=== PATIENT | female | born 1935 | race Caucasian/White ===

== ENCOUNTER 2020-09-24 10:37 | Observation (INO) ==
--- NOTE | 2020-09-24 11:24 | Emergency Department Note ---
History of Present Illness General Chief complaint: Syncope (Near Syncope) Stated complaint: DIZZY, LIGHTHEADED Time Seen by Provider: 09/24/20 11:04 Source: patient Mode of arrival: ambulatory Limitations: no limitations History of Present Illness This patient is an 85-year-old female comes in after a near syncopal episodes in her doctor's office. She says since she has been lightheaded and dizzy and passed out several times no injury. Today was the first time she has been checked out. At her doctor's office she says she felt faint and dizzy like she was in a pass out when he had a walking down a long haul. Apparently they measured her oxygen at the time it was low on pulse ox however that is improved. She denies any chest pain during these episodes but has had some shortness of breath. She did have diarrhea over but none recently. Her symptoms are exacerbated when she walks too far she says. No fever. No focal numbness or weakness. She does have a pacemaker in. Her regular doctor is in [facility] and she also sees a gas meter reader in [place] and we have very little records here on her. Home Medications Medication Instructions Recorded Confirmed Type amlodipine 10 mg PO QAM 02/12/20 09/24/20 History atorvastatin 10 mg PO QAM 02/12/20 09/24/20 History carbidopa-levodopa [Sinemet] 1 tab PO TID 02/12/20 09/24/20 History gabapentin 100 mg PO TID 02/12/20 09/24/20 History pantoprazole [Protonix] 20 mg PO QAM 02/12/20 09/24/20 History potassium chloride [Klor-Con 8] 8 meq PO QAM 02/12/20 09/24/20 History aspirin [Aspir-81] 81 mg PO QAM 09/24/20 09/24/20 History Allergies Allergy/AdvReac Type Severity Reaction Status Date / Time adhesive tape Allergy Rash Unverified 09/24/20 11:13 morphine Allergy Hives Unverified 09/24/20 11:13 Sulfa (Sulfonamide Allergy Unknown Unverified 09/24/20 11:13 Antibiotics) Past Med/Surg History Medical History (Updated 09/24/20 @ 15:22 by Dimas Enciso MD) History of CVA (cerebrovascular accident) History of diverticulitis Hypertension Parkinson disease Presence of cardiac pacemaker 09/27/2015 Presence of Watchman left atrial appendage closure device 04/04/2019 Social History Smoking Status: Never smoker Preferred Language: Congolese Feels Safe at Home: Yes Immunizations: Medical historypacemaker. Parkinson's. Hypertension. She also had a atrial closure device 4 years ago in [place] Social historyshe lives in the [place] area Review of Systems A total of 10 systems reviewed and were otherwise negative Physical Exam Vital Signs Vital Signs - 24 hr 09/24/20 10:44 09/24/20 10:45 09/24/20 10:57 Temperature 36.6 C Temperature Source Oral Pulse Rate 62 71 66 Pulse Rate [Left Finger] Pulse Rate from SpO2 Sensor 62 67 Pulse Rhythm Regular Pulse Rhythm [Left Finger] Pulse Strength Normal Pulse Strength [Left Finger] Respiratory Rate 20 18 18 Respiratory Effort / Characteristics Non-Labored Spontaneous Respiratory Depth Normal Respiratory Pattern Regular Blood Pressure 193/88 H 193/88 H Blood Pressure [Right Arm] Blood Pressure Mean 123 123 Blood Pressure Mean [Right Arm] Blood Pressure Position Sitting Blood Pressure Position [Right Arm] Pulse Oximetry 98 98 98 Oxygen Delivery Method Room Air Room Air Room Air Sepsis Recent Fever Within 48 Hours No Sepsis New/Unexplained Change in Mental Status N/A Sepsis Action Taken by Nursing No Action Required 09/24/20 11:00 09/24/20 11:01 09/24/20 11:10 Temperature Temperature Source Pulse Rate 61 61 63 Pulse Rate [Left Finger] Pulse Rate from SpO2 Sensor 61 61 Pulse Rhythm Regular Pulse Rhythm [Left Finger] Regular Pulse Strength Pulse Strength [Left Finger] Normal Respiratory Rate 20 16 16 Respiratory Effort / Characteristics Non-Labored Respiratory Depth Normal Respiratory Pattern Regular Blood Pressure 186/84 H Blood Pressure [Right Arm] 187/72 H Blood Pressure Mean 129 Blood Pressure Mean [Right Arm] 110 Blood Pressure Position Blood Pressure Position [Right Arm] Sitting Pulse Oximetry 97 96 98 Oxygen Delivery Method Room Air Room Air Room Air Sepsis Recent Fever Within 48 Hours Sepsis New/Unexplained Change in Mental Status Sepsis Action Taken by Nursing 09/24/20 11:15 09/24/20 11:31 09/24/20 11:49 Temperature Temperature Source Pulse Rate 63 67 Pulse Rate [Left Finger] Pulse Rate from SpO2 Sensor 72 62 Pulse Rhythm Regular Pulse Rhythm [Left Finger] Pulse Strength Pulse Strength [Left Finger] Respiratory Rate 16 21 Respiratory Effort / Characteristics Non-Labored Spontaneous Respiratory Depth Respiratory Pattern Blood Pressure 187/82 H Blood Pressure [Right Arm] Blood Pressure Mean 85 Blood Pressure Mean [Right Arm] Blood Pressure Position Blood Pressure Position [Right Arm] Pulse Oximetry 98 99 97 Oxygen Delivery Method Room Air Room Air Sepsis Recent Fever Within 48 Hours Sepsis New/Unexplained Change in Mental Status Sepsis Action Taken by Nursing 09/24/20 12:00 09/24/20 12:01 09/24/20 12:30 Temperature Temperature Source Pulse Rate 60 62 60 Pulse Rate [Left Finger] Pulse Rate from SpO2 Sensor 63 62 60 Pulse Rhythm Pulse Rhythm [Left Finger] Pulse Strength Pulse Strength [Left Finger] Respiratory Rate 21 20 19 Respiratory Effort / Characteristics Respiratory Depth Respiratory Pattern Blood Pressure 178/89 H 175/84 H Blood Pressure [Right Arm] Blood Pressure Mean 114 105 Blood Pressure Mean [Right Arm] Blood Pressure Position Blood Pressure Position [Right Arm] Pulse Oximetry 98 97 96 Oxygen Delivery Method Sepsis Recent Fever Within 48 Hours Sepsis New/Unexplained Change in Mental Status Sepsis Action Taken by Nursing 09/24/20 12:31 09/24/20 13:00 09/24/20 13:01 Temperature Temperature Source Pulse Rate 60 62 64 Pulse Rate [Left Finger] Pulse Rate from SpO2 Sensor 60 61 62 Pulse Rhythm Pulse Rhythm [Left Finger] Pulse Strength Pulse Strength [Left Finger] Respiratory Rate 23 20 25 H Respiratory Effort / Characteristics Respiratory Depth Respiratory Pattern Blood Pressure 186/165 H Blood Pressure [Right Arm] Blood Pressure Mean 171 Blood Pressure Mean [Right Arm] Blood Pressure Position Blood Pressure Position [Right Arm] Pulse Oximetry 98 97 97 Oxygen Delivery Method Sepsis Recent Fever Within 48 Hours Sepsis New/Unexplained Change in Mental Status Sepsis Action Taken by Nursing 09/24/20 13:30 09/24/20 14:01 09/24/20 14:30 Temperature Temperature Source Pulse Rate 60 65 61 Pulse Rate [Left Finger] 61 Pulse Rate from SpO2 Sensor 66 Pulse Rhythm Pulse Rhythm [Left Finger] Regular Pulse Strength Pulse Strength [Left Finger] Normal Respiratory Rate 15 18 15 Respiratory Effort / Characteristics Non-Labored Spontaneous Respiratory Depth Normal Respiratory Pattern Regular Blood Pressure 197/88 H 156/101 H Blood Pressure [Right Arm] 158/106 H Blood Pressure Mean 124 120 Blood Pressure Mean [Right Arm] 123 Blood Pressure Position Blood Pressure Position [Right Arm] Lying Pulse Oximetry 98 98 98 Oxygen Delivery Method Room Air Room Air Room Air Sepsis Recent Fever Within 48 Hours Sepsis New/Unexplained Change in Mental Status Sepsis Action Taken by Nursing General: Well developed well nourished older female who appears in no acute distress, breathing comfortably on room air. Normal speech HEENT: Normal cephalic atraumatic. Pupils are equal round and reactive to light. Extraocular movements are intact. Oropharynx is pink with moist mucous membranes. No swelling of the mouth lips or tongue. Neck: Supple with a midline trachea. No meningeal signs or stiffness, no JVD or bruits. No Stridor. Chest: Clear to auscultation bilaterally. No wheezes or rhonchi. No increased work of breathing. Heart: Regular rate and rhythm without murmurs or gallops. Abdomen: Soft nontender, nondistended without rebound guarding or rigidity. Extremities: No cyanosis clubbing or edema. No calf tenderness or assymetry Spine/Back. Non tender to palpation. No CVA tenderness Skin: Good turgor without rashes. Neurologic exam: Cranial nerves two through 12 are intact. Motor and sensation are intact and symmetrical throughout. No tremor Course Administered Medications Discontinued Medications Carbidopa/Levodopa (Carbidopa/Levodopa 25/100mg Tab) 1 tab PO ONE STA Stop: 09/24/20 14:16 Last Admin: 09/24/20 15:06 Dose: 1 tab Documented by: [id number] Gabapentin (Gabapentin 100 Mg Cap) 100 mg PO ONE STA Stop: 09/24/20 14:16 Last Admin: 09/24/20 15:06 Dose: 100 mg Documented by: [id number] Medical Decision Making Differential Diagnosis Syncope, near syncope, pacemaker malfunction, acute coronary syndrome, Covid, valvular heart disease, dehydration, anemia, sepsis, electrolyte or metabolic abnormality Medical Records Attestation: I reviewed the patient's medical records. Home Medications Current Medication List: was personally reviewed by me Laboratory Data Attestation: I reviewed the patient's lab results. Result diagrams: 09/24/20 11:46 09/24/20 11:46 Lab Results 09/24/20 09/24/20 09/24/20 Range/Units 11:46 11:46 11:46 WBC 6.82 (4.8-10.8) K/uL RBC 5.16 (4.2-5.4) M/uL Hgb 15.2 (12.0-16.0) g/dL Hct 45.1 (37-47) % MCV 87.4 (80-100) fL MCH 29.5 (25-34) pg MCHC 33.7 (32-36) g/dL RDW Std Deviation 47.4 H (36.4-46.3) fL RDW Coeff of Dontae 14.8 H (11.5-14.5) % Plt Count 183 (130-400) K/uL MPV 11.7 H (7.4-10.4) fL Immature Gran % (Auto) 0.1 % Neut % (Auto) 49.7 % Lymph % (Auto) 39.6 % Tripp % (Auto) 8.5 % Eos % (Auto) 1.5 % Baso % (Auto) 0.6 % Neut # (Auto) 3.39 (1.4-6.5) K/uL Lymph # (Auto) 2.70 (1.2-3.4) K/uL Tripp # (Auto) 0.58 (0.11-0.59) K/uL Eos # (Auto) 0.10 (0-0.5) K/uL Baso # (Auto) 0.04 (0-0.2) K/uL Immature Gran # (Auto) 0.01 (0.00-0.02) K/uL PT 11.8 (9.0-12.0) Seconds INR 1.1 (0.9-1.1) APTT 29.1 (21.0-31.0) Seconds PTT Ratio 1.0 Sodium 143 (136-145) mmol/L Potassium 3.6 (3.5-5.1) mmol/L Chloride 107 (98-107) mmol/L Carbon Dioxide 30 (21-32) mmol/L Anion Gap 6.0 (3-11) BUN 10 (7-18) mg/dl Creatinine 0.77 (0.6-1.2) mg/dl Est Cr Clr Drug Dosing 37.0 ml/min Est GFR ( Amer) 80.5 Est GFR (Non-Af Amer) 69.4 BUN/Creatinine Ratio 12.9 (10-20) Glucose 92 (70-99) mg/dl Calcium 8.8 (8.5-10.1) mg/dl Magnesium 1.9 (1.8-2.4) mg/dl Total Bilirubin 1.0 (0.2-1) mg/dl AST 20 (15-37) U/L ALT 13 (12-78) U/L Alkaline Phosphatase 142 H (45-117) U/L Troponin I < 0.015 (0-0.045) ng/ml NT-Pro-B Natriuret Pep 3962 H (0-1800) pg/ml Total Protein 6.9 (6.4-8.2) gm/dl Albumin 3.3 L (3.4-5.0) gm/dl Globulin 3.6 (2.5-4.0) gm/dl Albumin/Globulin Ratio 0.9 (0.9-2) TSH 1.360 (0.300-4.500) uIu/ml Urine Color Urine Appearance (Clear) Urine pH (4.5-7.5) Ur Specific [place] (1.000-1.030) Urine Protein (Negative) Urine Glucose (UA) (Negative) Urine Ketones (Negative) Urine Blood (Negative) Urine Nitrite (Negative) Urine Bilirubin (Negative) Urine Urobilinogen (Negative) Ur Leukocyte Esterase (Negative) COVID-19 Eval Order SARS-CoV-2, RNA, NAAT (NEGATIVE) 09/24/20 09/24/20 09/24/20 Range/Units 11:46 11:50 11:50 WBC (4.8-10.8) K/uL RBC (4.2-5.4) M/uL Hgb (12.0-16.0) g/dL Hct (37-47) % MCV (80-100) fL MCH (25-34) pg MCHC (32-36) g/dL RDW Std Deviation (36.4-46.3) fL RDW Coeff of Dontae (11.5-14.5) % Plt Count (130-400) K/uL MPV (7.4-10.4) fL Immature Gran % (Auto) % Neut % (Auto) % Lymph % (Auto) % Tripp % (Auto) % Eos % (Auto) % Baso % (Auto) % Neut # (Auto) (1.4-6.5) K/uL Lymph # (Auto) (1.2-3.4) K/uL Tripp # (Auto) (0.11-0.59) K/uL Eos # (Auto) (0-0.5) K/uL Baso # (Auto) (0-0.2) K/uL Immature Gran # (Auto) (0.00-0.02) K/uL PT (9.0-12.0) Seconds INR (0.9-1.1) APTT (21.0-31.0) Seconds PTT Ratio Sodium (136-145) mmol/L Potassium (3.5-5.1) mmol/L Chloride (98-107) mmol/L Carbon Dioxide (21-32) mmol/L Anion Gap (3-11) BUN (7-18) mg/dl Creatinine (0.6-1.2) mg/dl Est Cr Clr Drug Dosing ml/min Est GFR ( Amer) Est GFR (Non-Af Amer) BUN/Creatinine Ratio (10-20) Glucose (70-99) mg/dl Calcium (8.5-10.1) mg/dl Magnesium (1.8-2.4) mg/dl Total Bilirubin (0.2-1) mg/dl AST (15-37) U/L ALT (12-78) U/L Alkaline Phosphatase (45-117) U/L Troponin I (0-0.045) ng/ml NT-Pro-B Natriuret Pep (0-1800) pg/ml Total Protein (6.4-8.2) gm/dl Albumin (3.4-5.0) gm/dl Globulin (2.5-4.0) gm/dl Albumin/Globulin Ratio (0.9-2) TSH (0.300-4.500) uIu/ml Urine Color Yellow Urine Appearance Clear (Clear) Urine pH 5.5 (4.5-7.5) Ur Specific [place] 1.013 (1.000-1.030) Urine Protein Negative (Negative) Urine Glucose (UA) Negative (Negative) Urine Ketones Negative (Negative) Urine Blood Negative (Negative) Urine Nitrite Negative (Negative) Urine Bilirubin Negative (Negative) Urine Urobilinogen Negative (Negative) Ur Leukocyte Esterase Negative (Negative) COVID-19 Eval Order Covid19 IDNow [facility] SARS-CoV-2, RNA, NAAT NEGATIVE (NEGATIVE) Imaging Data Attestation: I personally reviewed and interpreted this imaging study as follows: My Impression: Chest x-ray, cardiomegaly but no acute infiltrate, failure treatment pneumothorax seen. Radiologist's Impression: XR chest 1V portable HISTORY: 85 years-old Female syncope acute syncope COMPARISON: Chest radiograph 02/12/2020 TECHNIQUE: Portable AP view of the chest FINDINGS: Cardiomegaly. Left subclavian pacer. Calcified plaque of the thoracic aorta. Surgical device overlies the left heart border. No pneumothorax, pleural effusion, airspace consolidation or overt pulmonary edema. Degenerative changes of the shoulders and spine. Hiatal hernia. IMPRESSION: 1. Cardiomegaly without acute process. 2. Hiatal hernia. ECG Data Attestation: I personally reviewed and interpreted this ECG as follows: Indication: + syncope and + weakness Rate (beats per minute): 64 Rhythm: + atrial fibrillation and + other (Intermittant paced rhythm) ECG Intervals/blocks: + Normal QRS and + Normal QT ECG Findings: + Other (She does have inferior and anterior lateral T wave inversions/nonspecific ST abnormalities which are unchanged from previous.); no PACs and no PVCs Comparison ECG Date: from (02/12/20) Change: the following changes noted (Intermittent paced rhythm otherwise no acute change) MDM Narrative This patient comes in after having near syncopal episode she feels good and is asking to go home. On her EKG she does have a intermittent paced rhythm. We did order interrogation of the pacemaker as well as IV access blood work chest x-ray and other work-up. The patient was reassessed frequently. She was also Covid tested given the fact that she has been having some shortness of breath. She was exposed to some family members over holiday gatherings. We did interrogate her pacemaker and the [facility] called me and told me her device looks good. It was last read on August 30 and since then she has been in chronic A. fib. Ventricular paced about 60% of the time. Her alarm for the upper level is set for ventricular rates greater than 175 and is not been triggered. Her cardiac biomarker was negative. Her BNP was elevated although she does not appear to be in heart failure. Her troponin was not elevated. She has no significant electrolyte or metabolic abnormalities. I am concerned that she is 85 and lives alone has had multiple syncopal episodes. I do think that she would benefit from being observed in further cardiac evaluation including echo. She did agree and I did discuss case with Dr. Perez who will be admitting/observing her Continuous cardiac monitoring: Order was placed in the EMR for continuous cardiac monitoring. The patient was noted to be in A. fib with intermittent pa cing at a rate of 65 Impression & Plan Syncope, Presence of Watchman left atrial appendage closure device, Pacemaker, A-fib Discharge Plan Visit Data Chief Complaint: Syncope (Near Syncope) Stated Complaint: DIZZY, LIGHTHEADED ED Provider: Dimas Enciso Discharge Problem: Syncope, Presence of Watchman left atrial appendage closure device, Pacemaker, A-fib Forms Stand Alone Forms: [facility] Prescriptions Prescriptions: No Action atorvastatin 10 mg Tablet 10 mg PO QAM RF: 0 pantoprazole [Protonix] 20 mg Tablet,Delayed Release (Dr/Ec) 20 mg PO QAM RF: 0 potassium chloride [Klor-Con 8] 8 mEq Tablet Extended Release 8 meq PO QAM RF: 0 amlodipine 10 mg Tablet 10 mg PO QAM RF: 0 gabapentin 100 mg Capsule 100 mg PO TID RF: 0 carbidopa-levodopa [Sinemet] 25-100 mg Tablet 1 tab PO TID RF: 0 aspirin [Aspir-81] 81 mg Tablet,Delayed Release (Dr/Ec) 81 mg PO QAM RF: 0 Discharge Problem: Syncope Qualifiers: Syncope type: unspecified Qualified Code(s): R55 - Syncope and collapse A-fib Qualifiers: Atrial fibrillation type: longstanding persistent Qualified Code(s): I48.11 - Longstanding persistent atrial fibrillation
--- NOTE | 2020-09-24 11:50 | XRay Report ---
XR chest 1V portable HISTORY: 85 years-old Female syncope acute syncope COMPARISON: Chest radiograph 02/12/2020 TECHNIQUE: Portable AP view of the chest FINDINGS: Cardiomegaly. Left subclavian pacer. Calcified plaque of the thoracic aorta. Surgical device overlies the left heart border. No pneumothorax, pleural effusion, airspace consolidation or overt pulmonary edema. Degenerative changes of the shoulders and spine. Hiatal hernia. IMPRESSION: 1. Cardiomegaly without acute process. 2. Hiatal hernia. ACT 112: Negative or not required by law. The above report was generated using voice recognition software. It may contain grammatical, syntax o r spelling errors. Electronically signed by: Trevon Craft M.D. 09/24/2020 11:49 AM
[2020-09-24 12:00] LABS: Appearance Urine Clear (Clear); Bilirubin Urine Negative (Negative); Blood Urine Negative (Negative); Color Urine Yellow; Glucose Urine UA Negative (Negative); Ketones Urine Negative (Negative); Leukocyte Esterase Urine Negative (Negative); Nitrite Urine Negative (Negative); Protein Urine Negative (Negative); Specific Gravity Urine 1.013 (1.000-1.030); Urobilinogen Urine Negative (Negative); pH Urine 5.5 (4.5-7.5)
--- NOTE | 2020-09-24 12:13 | Electrocardiogram Report ---
Test Reason : Blood Pressure : / mmHG Vent. Rate : 064 BPM Atrial Rate : 057 BPM P-R Int : 310 ms QRS Dur : 112 ms QT Int : 448 ms P-R-T Axes : 025 -46 -66 degrees QTc Int : 462 ms Ventricular-paced rhythm Underlying atrial fibrillation Incomplete right bundle branch block Left anterior fascicular block Abnormal ECG When compared with ECG of 12-FEB-2020 14:02, Ventricular-paced rhythm now present Confirmed by Derrick Bonilla ([id number]) on 09/24/2020 12:13:13 PM Referred By: Nohemy Abel Confirmed By:Derrick Bonilla
[2020-09-24 12:48] LABS: Basophils # (auto) 0.04 K/uL (0-0.2); Basophils % (auto) 0.6 %; Eosinophils % (auto) 1.5 %; Hematocrit (blood only) 45.1 % (37-47); Hemoglobin 15.2 g/dL (12.0-16.0); Immature Granulocytes # (auto) 0.01 K/uL (0.00-0.02); Immature Granulocytes % (auto) 0.1 %; Lymphocytes % (auto) 39.6 %; Mean Corpuscular Hemoglobin 29.5 pg (25-34); Mean Corpuscular Hgb Conc 33.7 g/dL (32-36); Mean Corpuscular Volume 87.4 fL (80-100); Mean Platelet Volume 11.7 fL (7.4-10.4); Monocytes # (auto) 0.58 K/uL (0.11-0.59); Monocytes % (auto) 8.5 %; Neutrophils # (auto) 3.39 K/uL (1.4-6.5); Neutrophils % (auto) 49.7 %; Platelet Count 183 K/uL (130-400); RDW Coefficient of Variation 14.8 % (11.5-14.5); RDW Standard Deviation 47.4 fL (36.4-46.3); Red Blood Count 5.16 M/uL (4.2-5.4); White Blood Count 6.82 K/uL (4.8-10.8)
[2020-09-24 12:56] LABS: INR 1.1 (0.9-1.1); Partial Thromboplastin Time 29.1 Seconds (21.0-31.0); Prothrombin Time 11.8 Seconds (9.0-12.0)
[2020-09-24 12:58] LABS: Alanine Aminotransferase 13 U/L (12-78); Albumin Level 3.3 gm/dl (3.4-5.0); Aspartate Aminotransferase 20 U/L (15-37); BUN Creatinine Ratio 12.9 (10-20); Blood Urea Nitrogen 10 mg/dl (7-18); Calcium 8.8 mg/dl (8.5-10.1); Carbon Dioxide 30 mmol/L (21-32); Chloride 107 mmol/L (98-107); Est GFR (African American) 80.5; Est GFR (Non-African American) 69.4; Glucose 92 mg/dl (70-99); Magnesium 1.9 mg/dl (1.8-2.4); Potassium 3.6 mmol/L (3.5-5.1); Sodium 143 mmol/L (136-145)
[2020-09-24 13:09] LABS: Albumin Globulin Ratio 0.9 (0.9-2); Alkaline Phosphatase 142 U/L (45-117); Globulin 3.6 gm/dl (2.5-4.0); NT Pro B Type Natriuretic Pept 3962 pg/ml (0-1800); Total Protein 6.9 gm/dl (6.4-8.2); Troponin I < 0.015 ng/ml (0-0.045)
[2020-09-24] MEDS ORDERED: GABAPENTIN 100 MG CAP PO STA (14:15)
[2020-09-24] MEDS ORDERED: CARBIDOPA/LEVODOPA 25/100MG TAB PO STA (14:15)
--- NOTE | 2020-09-24 14:35 | History & Physical Report ---
Date of Service September 24, 2020 Assessment & Plan (1) Syncope: Multiple episodes TTE No arrhythmias on pacemaker interrogation. Ventricular paced 59% with greater than 99% atrial fibrillation burden. Excessive PVCs when not paced possibly could lead to syncope however therefore will monitor on telemetry. Orthostatics every shift -hold amlodipine at current time. consult cardiology (2) A-fib: Chronic. Not on anticoagulation due to left atrial appendage device placed -presumably due to intermittent lower GI bleeding while on anticoagulation. (3) Presence of Watchman left atrial appendage closure device: (4) Presence of cardiac pacemaker: (5) Hypertension: We will hold amlodipine pending orthostatic blood pressures. (6) Parkinson disease: Continue Sinemet 1 tab p.o. 3 times daily Admission and Anticipated Discharge Date Admission Date: September 25, 2020 History of Present Illness Chief Complaint: Syncope Primary Care Provider: Nohemy Magaña is an 85 year old female who presents to the with recurrent syncope. She reports multiple episodes of syncope on exertion starting around when she "felt funny" and then passed out. This morning she had a doctors appointment at her PCP and when she was walking down the hallway she felt like she was going to pass out again and thinks she lost consciousness. She denies any chest pain, palpitations, shortness of breath, urinary symptoms, cough, fevers, chills, nausea, vomiting, abdominal pain, constipation, diarrhea. She does report previously needing for antihypertensives and is down to just taking amlodipine. She also notes taking Sinemet for tremors she currently feels at her baseline. Her baseline is walking with a walker. Lives alone in an apartment - has aids to help her with activities of daily living. Allergies Allergy/AdvReac Type Severity Reaction Status Date / Time adhesive tape Allergy Rash Unverified 09/24/20 11:13 morphine Allergy Hives Unverified 09/24/20 11:13 Sulfa (Sulfonamide Allergy Unknown Unverified 09/24/20 11:13 Antibiotics) Home Medications Medication Instructions Recorded Confirmed Type amlodipine 10 mg PO QAM 02/12/20 09/24/20 History atorvastatin 10 mg PO QAM 02/12/20 09/24/20 History carbidopa-levodopa [Sinemet] 1 tab PO TID 02/12/20 09/24/20 History gabapentin 100 mg PO TID 02/12/20 09/24/20 History pantoprazole [Protonix] 20 mg PO QAM 02/12/20 09/24/20 History potassium chloride [Klor-Con 8] 8 meq PO QAM 02/12/20 09/24/20 History aspirin [Aspir-81] 81 mg PO QAM 09/24/20 09/24/20 History Past Med/Surg History Medical History A-fib History of CVA (cerebrovascular accident) History of diverticulitis Hypertension Parkinson disease Presence of cardiac pacemaker 09/27/2015 Presence of Watchman left atrial appendage closure device 04/04/2019 Social History Smoking Status: Never smoker Hx Alcohol Use: No Hx Substance Use: No Preferred Language: Faroese Communication Ability: Effective Machine Brush Maker Required: No Beliefs That Will Affect Care: None Current Living Situation: Alone Other Information That Helps Us Care for You: No Feels Safe at Home: Yes Safety Concerns: Feels Safe At This Time Assistive Devices: Walker Review of Systems Review of Systems: All systems reviewed & are unremarkable except as noted in HPI & below Physical Exam Constitutional: WD/WN, vitals as above Eyes: PERRL, conjunctivae normal, anicteric sclerae ENMT: external ear and nose normal, oropharynx normal Neck: trachea midline, no thyromegaly Respiratory: normal respiratory effort, lungs clear to auscultation Cardiovascular: Rate/Rhythm: regular rate and + irregularly irregular Heart Sounds: no murmur Vessels: no JVD Extremities: normal capillary refill; no calf tenderness and no pedal edema Gastrointestinal (Abdomen): normal bowel sounds, soft, nontender, no hepatosplenomegaly Musculoskeletal: no cyanosis or clubbing, extremities motor strength 5/5 Skin: no rashes, warm and dry Neurologic: moves all extremities and awake; no focal motor deficits and not confused Speech / Cognition: normal speech Motor/Sensory: no tremor, no p ronator drift and no sensory deficit Psychiatric: A+Ox3, euthymic affect Results & Data Results & Data ([facility]) Vital Signs (Past 12 Hours) Vital Signs Temp Pulse Resp BP BP Pulse Ox 09/24/20 13:01 64 25 H 97 09/24/20 13:00 62 20 186/165 H 97 09/24/20 12:31 60 23 98 09/24/20 12:30 60 19 175/84 H 96 09/24/20 12:01 62 20 97 09/24/20 12:00 60 21 178/89 H 98 09/24/20 11:49 67 21 187/82 H 97 09/24/20 11:31 99 09/24/20 11:15 63 16 98 09/24/20 11:10 63 16 187/72 H 98 09/24/20 11:01 61 16 96 09/24/20 11:00 61 20 186/84 H 97 09/24/20 10:57 36.6 C 66 18 193/88 H 98 09/24/20 10:45 71 18 98 09/24/20 10:44 62 20 193/88 H 98 Diagnostic Findings XR chest 1V portable IMPRESSION: 1. Cardiomegaly without acute process. 2. Hiatal hernia. Medications Administered ER medications given: None ECG Indication: syncope Rate (beats per minute): 64 Findings: + paced rhythm (Ventricular) Comparison ECG Date: from (February 12, 2020) Code Status & VTE Plan Code Status Full VTE Prophylaxis Plan VTE Prophylaxis will be ordered: No Reason for no VTE drug order: Treatment not indicated Reason for no VTE mechanical prophylaxis: Treatment not indicated PG Care Time/CCT Total # of Minutes Spent Total Time Spent with Patient: Total time spent is greater than 50% in coordination of care (as documented) at patient's floor/unit and/or counseling patient: Coding Level of Care Code 29231 Initial Inpt Care Lvl 3 Diagnoses Syncope R55 Syncope type: unspecified A-fib I48.11 Atrial fibrillation type: longstanding persistent Presence of Watchman left atrial appendage closure device Z95.818 Presence of cardiac pacemaker Z95.0 Hypertension I10 Parkinson disease G20 (1) A-fib Atrial fibrillation type: longstanding persistent Qualified Code(s): I48.11 - Longstanding persistent atrial fibrillation (2) Syncope Syncope type: unspecified Qualified Code(s): R55 - Syncope and collapse
--- NOTE | 2020-09-24 16:32 | XCELERA ---
[id number]
[2020-09-24] MEDS ORDERED: COUGH DROP (SUGAR FREE) LOZ 24 LOZ/1 BOX BUCCAL PRN (19:06)
[2020-09-24] MEDS: CARBIDOPA/LEVODOPA 25/100MG TAB PO SCH (19:27)
[2020-09-24] MEDS: GABAPENTIN 100 MG CAP PO SCH (19:27)
[2020-09-25] MEDS: PANTOprazole 40 MG TAB PO SCH (07:22)
[2020-09-25] MEDS: ASPIRIN 81 MG ECTAB PO SCH (08:22)
[2020-09-25] MEDS: GABAPENTIN 100 MG CAP PO SCH ×4 (08:22→17:34)
[2020-09-25] MEDS: CARBIDOPA/LEVODOPA 25/100MG TAB PO SCH ×3 (08:22→17:35)
[2020-09-25] MEDS: ATORVASTATIN 10 MG TAB PO SCH (08:22)
[2020-09-25] MEDS ORDERED: POTASSIUM CHLORIDE 8 MEQ PO SCH (09:00)
--- NOTE | 2020-09-25 10:57 | Cardiology Consultation ---
Date of Consultation September 25, 2020 Assessment & Plan (1) Syncope: The exact etiology of her syncope is unclear. However, I think we can be confident that it is not related to a malignant ventricular arrhythmia. There were no arrhythmias identified on her device interrogation. She is not risk of Surinder arrhythmias. Overall rate histograms appear normal. She does not have reduced LV systolic function or any significant valvular heart disease. She was noted to be hypoxic at the time she had syncope in the clinic. However, I suspect a more likely etiology is hypotension possibly related to her Parkinson's disease, i.e. Shy-Drager syndrome. She is not appear to have orthostatic hypotension based on symptoms, and all of her symptoms appear to occur with more extended periods of ambulation. I asked the nursing staff to ambulate her in the hallways to see if there is an obvious abnormality associated with her symptoms such as recurrent hypoxia, hypotension or poor rate control/inadequate rate response. (2) A-fib: Permanent. Not on anticoagulation due to occlusion of the left atrial appendage. Rate histograms appear normal. No evidence of high ventricular rates on device interrogation. (3) Presence of cardiac pacemaker: He seems to have normally functioning dual-chamber permanent pacemaker. (4) Elevated brain natriuretic peptide (BNP) level: Possibly related to her advanced age and atrial fibrillation. While her lung examination was not entirely normal, seemed to be quite comfortable and does not describe symptoms of congestive heart failure. However, she was noted to be hypoxic in the clinic after her syncopal episode and will need to see if this is a consistent finding with recurrent symptoms. History of Present Illness Reason for Consultation: Syncope Requesting Physician: Ana Attending Physician: Jordy Martínez History of Present Illness The patient is an 85-year-old with a history of atrial fibrillation and prior implantation of a dual-chamber pacemaker who was referred to the emergency room for an episode of syncope. The patient states that for several weeks she has been having symptoms of exertional dizziness, weakness and occasional syncope. The episodes themselves happen only with extended ambulation. She lives independently with a caregiver who comes 5 days per week. Ambulating with a walker around her residence or short distances does not tend to produce symptoms. She does not endorse symptoms of dizziness, lightheadedness or syncope associated with changes in position. She can ambulate to the bathroom back several times per night if necessary without symptom. However, with more extended ambulation such as the grocery store or yesterday going to the examination room from the waiting room at the clinic, she generally develops a sense of lightheadedness, dizziness and lower extremity weakness which can result in a fall or syncope. Occasionally she will recognize the symptoms and sit down with resolution of her symptoms. In the clinic yesterday she did not appear to have her usual prodrome. According to the staff she had a syncopal episode while ambulating. Apparently she had an element of hypoxia documented at that time. She is currently feeling well and anxious to go home. She has been ambulatory around her room into the bathroom with a walker. No current symptoms. Allergies Allergy/AdvReac Type Severity Reaction Status Date / Time adhesive tape Allergy Rash Unverified 09/24/20 11:13 morphine Allergy Hives Unverified 09/24/20 11:13 Sulfa (Sulfonamide Allergy Unknown Unverified 09/24/20 11:13 Antibiotics) Home Medications Medication Instructions Recorded Confirmed Type amlodipine 10 mg PO QAM 02/12/20 09/24/20 History atorvastatin 10 mg PO QAM 02/12/20 09/24/20 History carbidopa-levodopa [Sinemet] 1 tab PO TID 02/12/20 09/24/20 History gabapentin 100 mg PO TID 02/12/20 09/24/20 History pantoprazole [Protonix] 20 mg PO QAM 02/12/20 09/24/20 History potassium chloride [Klor-Con 8] 8 meq PO QAM 02/12/20 09/24/20 History aspirin [Aspir-81] 81 mg PO QAM 09/24/20 09/24/20 History Patient History Medical History A-fib History of CVA (cerebrovascular accident) History of diverticulitis Hypertension Parkinson disease Presence of cardiac pacemaker 09/27/2015 Presence of Watchman left atrial appendage closure device 04/04/2019 Social History Smoking Status: Never smoker Hx Alcohol Use: No Hx Substance Use: No Preferred Language: [place] Communication Ability: Effective Nurseryperson Required: No Beliefs That Will Affect Care: None Current Living Situation: Alone Other Information That Helps Us Care for You: No Feels Safe at Home: Yes Safety Concerns: Feels Safe At This Time Assistive Devices: Walker Review of Systems Review of Systems: All systems reviewed & are unremarkable except as noted in HPI & below No recent constitutional symptoms such as fevers or chills. She does report occasional sensation of breathing difficulty which is not generally associated with activity or exertion. This resolved quite quickly. Occasionally she has a chest heaviness. Again, not generally associated with exertion. Fairly fleeting in nature. No sense of palpitation. No lower extremity edema. Poor appetite overall. Physical Exam Physical Exam: She is alert and oriented x3. Mood affect appear normal. She answered all questions appropriately. HEENT: Sclerae are anicteric. Pupils are equal and reactive to light and accommodation. Extraocular movements were intact. Neuro: Cranial nerves intact. Tremor noted. Somewhat masked faces Neck: Examination of the submandibular region did not reveal any significant lymphadenopathy. Carotids are palpable bilaterally and free of bruits on auscultation. There was no evidence of jugular venous distention. The thyroid was not enlarged. Lungs: Occasional bronchial breath sounds. Occasional crackle in the bases bilaterally. No expiratory wheezing. Normal respiratory effort. Cardiac: The rhythm was irregular. S1 and S2 were normal. There are no murmurs on examination. The PMI was not markedly displaced on palpation. Abdomen: The abdomen was soft and nontender. Extremities: Patient has bilateral radial pulses that are equal in intensity. There is no evidence cyanosis or clubbing. There was no evidence of significant peripheral edema bilaterally. Skin: There are no rashes noted on examination today. Results & Data ([facility]) Vital Signs (Past 12 Hours) Vital Signs Temp Pulse Pulse Resp BP Pulse Ox 09/25/20 10:31 60 09/25/20 07:46 36.3 C L 60 18 172/85 H 91 09/25/20 03:40 36.6 C 120 H 16 135/68 94 09/24/20 23:34 60 09/24/20 22:54 36.8 C 74 20 106/76 95 Laboratory Results Abnormal Lab Results 09/24/20 09/24/20 09/24/20 11:46 11:46 11:46 WBC 6.82 RBC 5.16 Hgb 15.2 Hct 45.1 MCV 87.4 MCH 29.5 MCHC 33.7 RDW Std Deviation 47.4 H RDW Coeff of Dontae 14.8 H Plt Count 183 MPV 11.7 H Immature Gran % (Auto) 0.1 Neut % (Auto) 49.7 Lymph % (Auto) 39.6 [place] % (Auto) 8.5 Eos % (Auto) 1.5 Baso % (Auto) 0.6 Neut # (Auto) 3.39 Lymph # (Auto) 2.70 [place] # (Auto) 0.58 Eos # (Auto) 0.10 Baso # (Auto) 0.04 Immature Gran # (Auto) 0.01 PT 11.8 INR 1.1 APTT 29.1 PTT Ratio 1.0 Sodium 143 Potassium 3.6 Chloride 107 Carbon Dioxide 30 Anion Gap 6.0 BUN 10 Creatinine 0.77 Est Cr Clr Drug Dosing 37.0 Est GFR ( Amer) 80.5 Est GFR (Non-Af Amer) 69.4 BUN/Creatinine Ratio 12.9 Glucose 92 Calcium 8.8 Magnesium 1.9 Total Bilirubin 1.0 AST 20 ALT 13 Alkaline Phosphatase 142 H Troponin I < 0.015 NT-Pro-B Natriuret Pep 3962 H Total Protein 6.9 Albumin 3.3 L Globulin 3.6 Albumin/Globulin Ratio 0.9 TSH 1.360 Urine Color Urine Appearance Urine pH Ur Specific [place] Urine Protein Urine Glucose (UA) Urine Ketones Urine Blood Urine Nitrite Urine Bilirubin Urine Urobilinogen Ur Leukocyte Esterase COVID-19 Eval Order SARS-CoV-2, RNA, NAAT 09/24/20 09/24/20 09/24/20 11:46 11:50 11:50 WBC RBC Hgb Hct MCV MCH MCHC RDW Std Deviation RDW Coeff of Dontae Plt Count MPV Immature Gran % (Auto) Neut % (Auto) Lymph % (Auto) [place] % (Auto) Eos % (Auto) Baso % (Auto) Neut # (Auto) Lymph # (Auto) [place] # (Auto) Eos # (Auto) Baso # (Auto) Immature Gran # (Auto) PT INR APTT PTT Ratio Sodium Potassium Chloride Carbon Dioxide Anion Gap BUN Creatinine Est Cr Clr Drug Dosing Est GFR ( Amer) Est GFR (Non-Af Amer) BUN/Creatinine Ratio Glucose Calcium Magnesium Total Bilirubin AST ALT Alkaline Phosphatase Troponin I NT-Pro-B Natriuret Pep Total Protein Albumin Globulin Albumin/Globulin Ratio TSH Urine Color Yellow Urine Appearance Clear Urine pH 5.5 Ur Specific [place] 1.013 Urine Protein Negative Urine Glucose (UA) Negative Urine Ketones Negative Urine Blood Negative Urine Nitrite Negative Urine Bilirubin Negative Urine Urobilinogen Negative Ur Leukocyte Esterase Negative COVID-19 Eval Order Cov[facility] SARS-CoV-2, RNA, NAAT NEGATIVE Diagnostic Findings 09/24/2020: Normal LV systolic function with ejection fraction 55-60%. Moderate mitral regurgitation. Mild LVH. Chest x-ray obtained at the time admission revealed cardiomegaly without any acute cardiopulmonary process. I reviewed the device interrogation performed at the time of admission. Essentially normal device function 100% atrial fibrillation. No ventricular arrhythmias. Approximately 60% ventricular pacing. Normal rate histograms. PG Care Time/CCT Total # of Minutes Spent Total Time Spent with Patient: Total time spent is greater than 50% in coordination of care (as documented) at patient's floor/unit and/or counseling patient: Coding Level of Care Code 92427 Initial Inpt Care Lvl 3 Diagnoses Syncope R55 Syncope type: unspecified A-fib I48.11 Atrial fibrillation type: longstanding persistent Presence of cardiac pacemaker Z95.0 Elevated brain natriuretic peptide (BNP) level R79.89 (1) Syncope Syncope type: unspecified Qualified Code(s): R55 - Syncope and collapse (2) A-fib Atrial fibrillation type: longstanding persistent Qualified Code(s): I48.11 - Longstanding persistent atrial fibrillation
--- NOTE | 2020-09-25 22:59 | Hospitalist Progress Note ---
Date of Service September 25, 2020 Assessment & Plan (1) Syncope: Multiple episodes: likely related to autonomic dysfunction from Parkinson's. Consulted cardio, do not believe this to be related TTE No arrhythmias on pacemaker interrogation. Ventricular paced 59% with greater than 99% atrial fibrillation burden. Excessive PVCs when not paced possibly could lead to syncope however therefore will monitor on telemetry. Orthostatics every shift -hold amlodipine at current time. consult cardiology (2) A-fib: Chronic. Not on anticoagulation due to left atrial appendage device placed -presumably due to intermittent lower GI bleeding while on anticoa gulation. (3) Presence of Watchman left atrial appendage closure device: (4) Presence of cardiac pacemaker: (5) Hypertension: We will hold amlodipine as BP has been well controlled (6) Parkinson disease: Continue Sinemet 1 tab p.o. 3 times daily Admission and Anticipated Discharge Date Admission Date: September 24, 2020 Subjective Patient reports doing well. Review of Systems Review of Systems: All systems reviewed & are unremarkable except as noted in HPI & below Physical Exam Physical Exam: Constitutional: WD/WN, vitals as above Eyes: PERRL, conjunctivae normal, anicteric sclerae ENMT: external ear and nose normal, oropharynx normal Neck: trachea midline, no thyromegaly Respiratory: normal respiratory effort, lungs clear to auscultation Cardiovascular: Rate/Rhythm: regular rate and + irregularly irregular Heart Sounds: no murmur Vessels: no JVD Extremities: normal capillary refill; no calf tenderness and no pedal edema Gastrointestinal (Abdomen): normal bowel sounds, soft, nontender, no hepatos plenomegaly Musculoskeletal: no cyanosis or clubbing, extremities motor strength 5/5 Skin: no rashes, warm and dry Neurologic: moves all extremities and awake; no focal motor deficits and not confused Speech / Cognition: normal speech Motor/Sensory: no tremor, no pronator drift and no sensory deficit Psychiatric: A+Ox3, euthymic affect Results & Data Results & Data ([facility]) Vital Signs (Past 12 Hours) Vital Signs Temp Pulse Pulse Resp BP Pulse Ox 09/25/20 19:17 36.8 C 64 16 134/79 94 09/25/20 16:01 36.7 C 59 L 16 147/70 H 95 09/25/20 14:58 67 09/25/20 11:54 36.5 C 66 18 131/82 97 PG Care Time/CCT Total # of Minutes Spent Total Time Spent with Patient: Total time spent is greater than 50% in coordination of care (as documented) at patient's floor/unit and/or counseling patient: Coding Level of Care Code 88544 Subseq Obs Care Lvl 3 Diagnoses Syncope R55 Syncope type: unspecified A-fib I48.11 Atrial fibrillation type: longstanding persistent Presence of Watchman left atrial appendage closure device Z95.818 Presence of cardiac pacemaker Z95.0 Hypertension I10 Parkinson disease G20 (1) A-fib Atrial fibrillation type: longstanding persistent Qualified Code(s): I48.11 - Longstanding persistent atrial fibrillation (2) Syncope Syncope type: unspecified Qualified Code(s): R55 - Syncope and collapse
[2020-09-26] MEDS: ATORVASTATIN 10 MG TAB PO SCH (07:59)
[2020-09-26] MEDS: ASPIRIN 81 MG ECTAB PO SCH (07:59)
[2020-09-26] MEDS: PANTOprazole 40 MG TAB PO SCH (08:00)
[2020-09-26] MEDS: CARBIDOPA/LEVODOPA 25/100MG TAB PO SCH ×2 (08:00→12:28)
[2020-09-26] MEDS ORDERED: GABAPENTIN 100 MG CAP PO SCH (09:00)
--- NOTE | 2020-09-26 09:09 | Cardiology Progress Note ---
Date of Service September 26, 2020 Assessment & Plan (1) Syncope: Unclear etiology. No objective findings with ambulation yesterday. Perhaps she did not ambulate far enough to produce her symptoms. No orthostasis on vital signs measured yesterday. No symptoms of orthostatic hypotension. No arrhythmias. No severe valvular heart disease. Normal LV systolic function. Perhaps with longer periods of ambulation she becomes weak or develops an element of hypoxia or hypotension that has yet to be identified. I would encourage continued walking in a supervised environment in order to identify any objective abnormalities. I do not believe she requires continued hospitalization for evaluation, as this can be performed as an outpatient. (2) A-fib: Permanent. Not on anticoagulation due to occlusion of the left atrial appendage. Rate histograms appear normal. Normal rates on telemetry. No other arrhythmias identified. (3) Presence of cardiac pacemaker: She seems to have normally functioning dual-chamber permanent pacemaker. (4) Elevated brain natriuretic peptide (BNP) level: Possibly related to her advanced age and atrial fibrillation. On examina tion normal. Admission and Anticipated Discharge Date Admission Date: September 24, 2020 Subjective This morning the patient claims to be feeling well. She reports being ambulatory in the hallways yesterday without symptoms of dizziness or lightheadedness. She was able to ambulate to the bathroom and back in her room today without symptoms. She is anxious for discharge. Review of Systems Review of Systems: Per HPI Physical Exam Physical Exam: She is alert and oriented x3. Mood affect appear normal. She answered all questions appropriately. HEENT: Sclerae are anicteric. Pupils are equal and reactive to light and accommodation. Extraocular movements were intact. Neuro: Cranial nerves intact. Tremor noted. Somewhat masked faces Lungs: Occasional bronchial breath sounds. Occasional crackle in the bases bilaterally. No expiratory wheezing. Normal respiratory effort. Cardiac: The rhythm was irregular. S1 and S2 were normal. There are no murmurs on examination. The PMI was not markedly displaced on palpation. Abdomen: The abdomen was soft and nontender. Extremities: Patient has bilateral radial pulses that are equal in intensity. There is no evidence cyanosis or clubbing. There was no evidence of significant peripheral edema bilaterally. Skin: There are no rashes noted on examination today. Results & Data ([facility]) Vital Signs (Past 12 Hours) Vital Signs Temp Pulse Pulse Resp BP Pulse Ox 09/26/20 07:36 36.8 C 69 18 134/58 L 97 09/26/20 03:35 36.6 C 64 18 128/72 94 09/26/20 00:38 60 09/25/20 23:18 36.6 C 65 16 138/77 96 PG Care Time/CCT Total # of Minutes Spent Total Time Spent with Patient: Total time spent is greater than 50% in coordination of care (as documented) at patient's floor/unit and/or counseling patient: Coding Level of Care Code 97494 Subseq Hosp Care Lvl 2 Diagnoses Syncope R55 Syncope type: unspecified A-fib I48.11 Atrial fibrillation type: longstanding persistent Presence of cardiac pacemaker Z95.0 Elevated brain natriuretic peptide (BNP) level R79.89 (1) Syncope Syncope type: unspecified Qualified Code(s): R55 - Syncope and collapse (2) A-fib Atrial fibrillation type: longstanding persistent Qualified Code(s): I48.11 - Longstanding persistent atrial fibrillation
--- NOTE | 2020-10-03 21:20 | Discharge Summary ---
Date of Service September 26, 2020 Admission HPI Per Admitting Provider Bianca Magaña is an 85 year old female who presents to the with recurrent syncope. She reports multiple episodes of syncope on exertion starting around Thanksgiving when she "felt funny" and then passed out. This morning she had a doctors appointment at her PCP and when she was walking down the hallway she felt like she was going to pass out again and thinks she lost consciousness. She denies any chest pain, palpitations, shortness of breath, urinary symptoms, cough, fevers, chills, nausea, vomiting, abdominal pain, constipation, diarrhea. She does report previously needing for antihypertensives and is down to just taking amlodipine. She also notes taking Sinemet for tremors she currently feels at her baseline. Her baseline is walking with a walker. Lives alone in an apartment - has aids to help her with activities of daily living. Principal Diagnosis SYNCOPE Discharge Exam Constitutional: WD/WN, vitals as above Eyes: PERRL, conjunctivae normal, anicteric sclerae ENMT: external ear and nose normal, oropharynx normal Neck: trachea midline, no thyromegaly Respiratory: normal respiratory effort, lungs clear to auscultation Cardiovascular: Rate/Rhythm: regular rate and + irregularly irregular Heart Sounds: no murmur Vessels: no JVD Extremities: normal capillary refill; no calf tenderness and no pedal edema Gastrointestinal (Abdomen): normal bowel sounds, soft, nontender, no hepatosplenomegaly Musculoskeletal: no cyanosis or clubbing, extremities motor strength 5/5 Skin: no rashes, warm and dry Neurologic: moves all extremities and awake; no focal motor deficits and not confused Speech / Cognition: normal speech Motor/Sensory: no tremor, no pronator drift and no sensory deficit Psychiatric: A+Ox3, euthymic affect Discharge Data Allergies Allergy/AdvReac Type Severity Reaction Status Date / Time adhesive tape Allergy Rash Unverified 09/24/20 11:13 morphine Allergy Hives Unverified 09/24/20 11:13 Sulfa (Sulfonamide Allergy Unknown Unverified 09/24/20 11:13 Antibiotics) Consultations 09/24/20 13:44 ED Decision to Admit Stat 09/24/20 14:40 Consult Health Information Management Routine 09/24/20 16:57 Consult Cardiology Routine Hospital Course (1) Syncope: Multiple episodes: likely related to autonomic dysfunction from Parkinson's. Consulted cardio, do not believe this to be related TTE No arrhythmias on pacemaker interrogation. Ventricular paced 59% with greater than 99% atrial fibrillation burden. Excessive PVCs when not paced possibly could lead to syncope however therefore will monitor on telemetry. Orthostatics every shift -hold amlodipine at current time. consult cardiology Appreciate input from cardio: nclear etiology. No objective findings with ambulation yesterday. Perhaps she did not ambulate far enough to produce her symptoms. No orthostasis on vital signs measured yesterday. No symptoms of orthostatic hypotension. No arrhythmias. No severe valvular heart disease. Normal LV systolic function. Perhaps with longer periods of ambulation she becomes weak or develops an element of hypoxia or hypotension that has yet to be identified. I would encourage continued walking in a supervised environment in order to identify any objective abnormalities. I do not believe she requires continued hospitalization for evaluation, as this can be performed as an outpatient. Will discharge on lower dose of amlodipine, will defer further workup to PCP. (2) A-fib: Chronic. Not on anticoagulation due to left atrial appendage device placed -presumably due to intermittent lower GI bleeding while on anticoagulation. (3) Presence of Watchman left atrial appendage closure device: (4) Presence of cardiac pacemaker: (5) Hypertension: We will hold amlodipine as BP has been well controlled (6) Parkinson disease: Continue Sinemet 1 tab p.o. 3 times daily Total Time Total Time Spent Total Time Spent (In Minutes): 35 Discharge Plan Discharge Items Patient Disposition: Home - Self-Care Reason For Visit: SYNCOPE Discharge Diagnosis: syncope Activity: Resume your previous activity Non-emergency contact: Primary Care Provider Call non-emergency contact if: you have any medication questions Follow-up/Referrals: Nohemy Abel PA-C [Primary Care Provider] - Diet: Regular Addtl Attending Provider Instructions: You have been hospitalized for an acute medical problem. During your stay at [facility], we have made an effort to correct the problem that brought you to the hospital while keeping you as comfortable as possible. Medications were used to bring your condition under control and your discharge instructions will include directions for any medications you should take after leaving the hospital. Please make sure you see your Primary Care Provider as part of your follow up plan. Will decrease amlodipine to 25. mg PO daily due to lightheadedness Pending Studies at Discharge: No Stand-Alone Forms: My [facility], Smoking Cessation Medications and DC Order Prescriptions: New amlodipine 2.5 mg tablet 2.5 mg PO DAILY Qty: 30 RF: 0 Continued atorvastatin 10 mg Tablet 10 mg PO QAM RF: 0 pantoprazole [Protonix] 20 mg Tablet,Delayed Release (Dr/Ec) 20 mg PO QAM RF: 0 potassium chloride [Klor-Con 8] 8 mEq Tablet Extended Release 8 meq PO QAM RF: 0 gabapentin 100 mg Capsule 100 mg PO TID RF: 0 carbidopa-levodopa [Sinemet] 25-100 mg Tablet 1 tab PO TID RF: 0 aspirin 81 mg Tablet,Delayed Release (Dr/Ec) 81 mg PO QAM RF: 0 Discontinued amlodipine 10 mg Tablet 10 mg PO QAM RF: 0 Discharge Orders: Discharge Order (Routine); Ordered 09/26/20 Ordered By: Jordy Martínez Admission Data Admit Date/Time: 09/24/20 14:19 Attending Provider: Jordy Martínez Admit Provider: Robin Perez Primary Care Provider: Nohemy Abel Other Providers: Robin Perez ; Derrick Bonilla Other Interventions: Discharge Summary Assessment (RN) Last Done: 09/26/20 14:26 Coding Level of Care Code D/C Day Management >30 mins Diagnoses Syncope R55 Syncope type: unspecified A-fib I48.11 Atrial fibrillation type: longstanding persistent Presence of Watchman left atrial appendage closure device Z95.818 Presence of cardiac pacemaker Z95.0 Hypertension I10 Parkinson disease G20 Time Spent (min) 35
== END 2020-09-26 14:45 | disposition home or self-care (01) ==
LOC: 2N 10:37 → ED 10:37 → SUATTDRO 14:19 → 2N 15:50

== ENCOUNTER 2021-09-27 14:34 | Inpatient (IN) ==
--- NOTE | 2021-09-27 14:48 | Emergency Department Note ---
Impression & Plan COVID-19, A-fib, Elevated troponin I level, Weakness, Alteration consciousness, Fever ED Provider Note NAME: JAYESH CREWS AGE: 86 SEX: F : 1935 ARRIVES VIA: Ambulance INFORMANT: Patient, ED PROVIDER(S): Parag Mix MD Chief Complaint: Unresponsiveness HPI: Patient does present via EMS due to concern for decreased responsive. Patient history significantly limited due to mentation. Patient is able to finger counts and can occasionally follow commands. EMS reports that the caregiver had stated that the patient had been unresponsive on the couch since this morning. No known last known well. Unknown this was not the patient awoke this way or this was an acute change in symptoms. No reported falls or trauma. Patient's PSG was normal with a slightly elevated temperature at 101.1. No medi cations given in route ROS: See HPI for pertinent positives and negatives. A total of 10 systems were reviewed and otherwise negative. Past medical history: See below Surgical history: See below Social history: See below Physical Exam: GENERAL: Wearing a mask. Nasal cannula in place. Decreased responsiveness EYE EXAM: Normal conjunctiva. PERRL, no anisocoria and EOM's grossly intact w/o pain. NECK: Supple, no nuchal rigidity, no adenopathy, non-tender. No signs of meningismus. LUNGS: Clear to auscultation. Normal chest wall mechanics. HEART: NSR, no MRG. ABDOMEN: Abdomen soft, non-tender, normo-active bowel sounds, no masses, no rebound or guarding. BACK: No CVA TTP. SKIN: No rashes and no bruising. UPPER EXTREMITIES: Upper extremities are grossly normal. LOWER EXTREMITIES: Grossly normal, no edema. NEURO EXAM: Opens eyes to pain and voice, can finger count, no obvious droop, m oves all 4 extremities but weak throughout. Differential diagnoses: Infection, dehydration, metabolic abnormality, hypo/hyperglycemia, electrolyte disturbance, anemia, hypoxia, cardiac sources, intracerebral event, toxicologic, neurologic, as well as other pathologies. Course: Patient was seen and evaluated the bedside. Full history physical exam was performed. EKG interpreted by me Perla otero, occasionally paced rhythm, rate of 71, normal QRS, left axis deviation, T wave inversion in lead V3 and and in the lateral leads. T wave version in lead III is new but in the lateral leads it is unchanged from comparison EKG completed January 03, 2021. Imaging Studies: See Below Cardiac monitoring: An order was placed for continuous cardiac monitoring. The monitor shows a rate of 62 with sinus rhythm. MDM: Patient was seen due to concern for change in mentation. Blood work was obtained along with COVID and chest x-ray. CT head also obtained. Patient is a normal white count H&H and platelet count. The patient's kidney function is unremarkable. Troponin is slightly elevated at 0.05. Patient's procalcitonin is negative with urinalysis that does not show obvious infection. Flu and RSV negative but COVID positive. Chest x-ray and CT head unremarkable. EKG unremarkable. Given the patient's infectious etiology and COVID symptoms believe the patient would benefit from inpatient treatment and observation at this time. I did speak with the on-call hospitalist and the patient was admitted to the medicine service by Dr. Matt Past Med/Surg History Medical History A-fib History of CVA (cerebrovascular accident) History of diverticulitis Hypertension Parkinson disease Presence of cardiac pacemaker 09/27/2015 Presence of Watchman left atrial appendage closure device 04/04/2019 Social History Smoking Status: Unknown if ever smoked Hx Alcohol Use: No Hx Substance Use: No Preferred Language: Gu[place]ian Communication Ability: Effective Apartment Property Manager Required: No Beliefs That Will Affect Care: None Current Living Situation: Alone Feels Safe at Home: Yes Assistive Devices: Denture - Upper and Denture - Lower Allergies Allergies Allergy/AdvReac Type Severity Reaction Status Date / Time adhesive tape Allergy Rash Unverified 09/27/21 16:06 morphine Allergy Hives Unverified 09/27/21 16:06 Sulfa (Sulfonamide Allergy Unknown Unverified 09/27/21 16:06 Antibiotics) cephalexin AdvReac Unknown Unverified 09/27/21 16:06 Home Meds Home Medications Medication Instructions Recorded Confirmed atorvastatin 10 mg tablet 10 mg PO QAM 02/12/20 09/27/21 carbidopa 25 mg-levodopa 100 mg 1 tab PO TID 02/12/20 09/27/21 tablet (Sinemet) gabapentin 100 mg capsule 100 mg PO TID 02/12/20 09/27/21 pantoprazole 20 mg tablet,delayed 20 mg PO QAM 02/12/20 09/27/21 release (Protonix) aspirin 81 mg tablet,delayed 81 mg PO QAM 09/24/20 09/27/21 release acetaminophen 325 mg tablet 650 mg PO Q4H PRN 09/27/21 09/27/21 guaifenesin 600 mg tablet, 600 mg PO BID 09/27/21 09/27/21 extended release 12 hr (Mucinex) loratadine 10 mg tablet 10 mg PO DAILY 09/27/21 09/27/21 metoprolol succinate 25 mg 25 mg PO DAILY 09/27/21 09/27/21 tablet,extended release 24 hr mirtazapine 30 mg tablet 30 mg PO HS 09/27/21 09/27/21 psyllium husk 0.52 gram capsule 0.52 g PO TID 09/27/21 09/27/21 (Metamucil) Previous Rx's Medication Instructions Recorded amlodipine 2.5 mg tablet 2.5 mg PO DAILY #30 tab 09/26/20 Results & Data (ED) Vital Signs Vital Signs - 24 hr 09/27/21 14:40 09/27/21 15:41 Temperature 38.2 C H Temperature Source Oral Pulse Rate 64 Respiratory Rate 17 Respiratory Effort / Characteristics Non-Labored Spontaneous Respiratory Depth Normal Respiratory Pattern Regular Blood Pressure 142/74 H Blood Pressure Mean 96 Blood Pressure Position Lying Pulse Oximetry 99 Oxygen Delivery Method Nasal Cannula Nasal Cannula Oxygen Flow Rate 4 3 Sepsis Recent Fever Within 48 Hours Yes Sepsis New/Unexplained Change in Mental Status Yes Sepsis Action Taken by Nursing Physician Notified Home Medications Current Medication List: was personally reviewed by me Laboratory Data Attestation: I reviewed the patient's lab results. Result diagrams: 09/27/21 14:45 09/27/21 14:45 Lab Results 09/27/21 09/27/21 09/27/21 Range/Units 14:45 14:45 14:45 WBC 5.53 (4.8-10.8) K/uL RBC 5.35 (4.2-5.4) M/uL Hgb 15.3 (12.0-16.0) g/dL Hct 47.0 (37-47) % MCV 87.9 (80-100) fL MCH 28.6 (25-34) pg MCHC 32.6 (32-36) g/dL RDW Std Deviation 48.7 H (36.4-46.3) fL RDW Coeff of Dontae 15.3 H (11.5-14.5) % Plt Count 190 (130-400) K/uL MPV 11.2 H (7.4-10.4) fL Immature Gran % (Auto) 0.0 % Neut % (Auto) 63.1 % Lymph % (Auto) 19.7 % [place] % (Auto) 16.6 % Eos % (Auto) 0.2 % Baso % (Auto) 0.4 % Neut # (Auto) 3.49 (1.4-6.5) K/uL Lymph # (Auto) 1.09 L (1.2-3.4) K/uL [place] # (Auto) 0.92 H (0.11-0.59) K/uL Eos # (Auto) 0.01 (0-0.5) K/uL Baso # (Auto) 0.02 (0-0.2) K/uL Immature Gran # (Auto) 0.00 (0.00-0.02) K/uL Sodium 140 (136-145) mmol/L Potassium 3.8 (3.5-5.1) mmol/L Chloride 103 (98-107) mmol/L Carbon Dioxide 27 (21-32) mmol/L Anion Gap 10 (3-11) BUN 15 (6-23) mg/dl Creatinine 0.90 (0.6-1.2) mg/dl Est Cr Clr Drug Dosing 38.1 ml/min Est GFR ( Amer) 66.2 ml/min Est GFR (Non-Af Amer) 57.1 ml/min BUN/Creatinine Ratio 16.7 (10-20) Glucose 96 (70-99) mg/dl Lactate (0.4-2.0) mmol/L Calcium 9.4 (8.5-10.1) mg/dl Total Bilirubin 0.7 (0.2-1.0) mg/dl AST 19 (13-39) U/L ALT < 3 L (7-52) U/L Alkaline Phosphatase 132 H (34-104) U/L Troponin I 0.05 H* (0-0.04) ng/ml Total Protein 7.6 (6.0-8.3) gm/dl Albumin 4.0 (3.4-5.0) gm/dl Globulin 3.6 (2.5-4.0) gm/dl Albumin/Globulin Ratio 1.1 (0.9-2) Procalcitonin < 0.05 (0-0.5) ng/ml TSH 0.898 (0.300-4.500) uIu/ml Urine Color Urine Appearance (Clear) Urine pH (4.5-7.5) Ur Specific [place] (1.000-1.030) Urine Protein (Negative) Urine Glucose (UA) (Negative) Urine Ketones (Negative) Urine Blood (Negative) Urine Nitrite (Negative) Urine Bilirubin (Negative) Urine Urobilinogen (Negative) Ur Leukocyte Esterase (Negative) Urine WBC (Auto) (0-5) /hpf Urine RBC (Auto) (0-4) /hpf U Hyaline Cast (Auto) (0-5) /lpf U Epithel Cells (Auto) (0-5) /lpf Urine Bacteria (Auto) (Negative) SARS-CoV-2 (PCR) (Negative) Influenza Type A (PCR) (Neg) Influenza Type B (PCR) (Neg) RSV (RT-PCR) (Neg) 09/27/21 09/27/21 09/27/21 Range/Units 15:00 15:07 15:34 WBC (4.8-10.8) K/uL RBC (4.2-5.4) M/uL Hgb (12.0-16.0) g/dL Hct (37-47) % MCV (80-100) fL MCH (25-34) pg MCHC (32-36) g/dL RDW Std Deviation (36.4-46.3) fL RDW Coeff of Dontae (11.5-14.5) % Plt Count (130-400) K/uL MPV (7.4-10.4) fL Immature Gran % (Auto) % Neut % (Auto) % Lymph % (Auto) % [place] % (Auto) % Eos % (Auto) % Baso % (Auto) % Neut # (Auto) (1.4-6.5) K/uL Lymph # (Auto) (1.2-3.4) K/uL [place] # (Auto) (0.11-0.59) K/uL Eos # (Auto) (0-0.5) K/uL Baso # (Auto) (0-0.2) K/uL Immature Gran # (Auto) (0.00-0.02) K/uL Sodium (136-145) mmol/L Potassium (3.5-5.1) mmol/L Chloride (98-107) mmol/L Carbon Dioxide (21-32) mmol/L Anion Gap (3-11) BUN (6-23) mg/dl Creatinine (0.6-1.2) mg/dl Est Cr Clr Drug Dosing ml/min Est GFR ( Amer) ml/min Est GFR (Non-Af Amer) ml/min BUN/Creatinine Ratio (10-20) Glucose (70-99) mg/dl Lactate 0.7 (0.4-2.0) mmol/L Calcium (8.5-10.1) mg/dl Total Bilirubin (0.2-1.0) mg/dl AST (13-39) U/L ALT (7-52) U/L Alkaline Phosphatase (34-104) U/L Troponin I (0-0.04) ng/ml Total Protein (6.0-8.3) gm/dl Albumin (3.4-5.0) gm/dl Globulin (2.5-4.0) gm/dl Albumin/Globulin Ratio (0.9-2) Procalcitonin (0-0.5) ng/ml TSH (0.300-4.500) uIu/ml Urine Color Yellow Urine Appearance Clear (Clear) Urine pH 5.0 (4.5-7.5) Ur Specific [place] 1.019 (1.000-1.030) Urine Protein Negative (Negative) Urine Glucose (UA) Negative (Negative) Urine Ketones Trace H (Negative) Urine Blood 1+ H (Negative) Urine Nitrite Negative (Negative) Urine Bilirubin Negative (Negative) Urine Urobilinogen Negative (Negative) Ur Leukocyte Esterase Negative (Negative) Urine WBC (Auto) 1-5 (0-5) /hpf Urine RBC (Auto) 5-10 H (0-4) /hpf U Hyaline Cast (Auto) 1-5 (0-5) /lpf U Epithel Cells (Auto) >30 H (0-5) /lpf Urine Bacteria (Auto) Negative (Negative) SARS-CoV-2 (PCR) POSITIVE A* (Negative) Influenza Type A (PCR) Negative (Neg) Influenza Type B (PCR) Negative (Neg) RSV (RT-PCR) Negative (Neg) Administered Medications Discontinued Medications Furosemide (Furosemide Inj 20 Mg/2 Ml Vial) 20 mg IV ONE ONE Stop: 09/27/21 18:07 Last Admin: 09/27/21 18:34 Dose: 20 mg Documented by: [id number] Sodium Chloride (Nss) 500 mls @ 999 mls/hr IV .Q31M TASHIA Stop: 09/27/21 15:30 Last Infusion: 09/27/21 16:17 Dose: 0 mls/hr Documented by: [id number] Admin: 09/27/21 15:39 Dose: 999 mls/hr Documented by: [id number] Sodium Chloride (Nss 1000ml) 1,000 mls @ 999 mls/hr IV .Q1H1M ONE Stop: 09/27/21 15:51 Last Infusion: 09/27/21 16:57 Dose: 0 mls/hr Documented by: [id number] Admin: 09/27/21 15:39 Dose: 999 mls/hr Documented by: [id number] Piperacillin Sod/Tazobactam (Sod 3.375 gm/ Dextrose) 115 mls @ 230 mls/hr IV NOW ONE; Protocol Stop: 09/27/21 18:59 Last Admin: 09/27/21 18:50 Dose: 230 mls/hr Documented by: [id number] Imaging Data Radiologist's Impression: Chest X-Ray 09/27/21 14:50 XR chest 1V portable CLINICAL HISTORY: weakness TECHNIQUE: Single frontal radiograph of the chest was obtained. Comparison: Comparison is made to chest one view 09/14/2021 FINDINGS: Dual lead pacemaker is seen. Cardiomegaly is noted. There is prominence and cephalization of the vasculature with Mirella B lines seen. No evidence of pleural effusion or pneumothorax. IMPRESSION: Moderate pulmonary edema. This represents an increase from prior exam. ACT 112: Negative or not required by law. Electronically signed by: Mio Whitmore M.D. 09/27/2021 3:[address] 09/27/21 14:50 CT head/brain wo con CLINICAL HISTORY: 86 years-old Female with change in mental status. Acutely altered mental status TECHNIQUE: Multiple axial CT images of the head were obtained without contrast. A dose lowering technique was utilized adhering to the principles of ALARA. CT DOSE: 537.48 mGy.cm COMPARISON: Head CT 09/14/2021 FINDINGS: No acute intracranial hemorrhage, midline shift, intracranial mass, h ydrocephalus, territorial ischemia or abnormal extra-axial collection. Age- related involutional changes. White matter hypodensities suggest chronic microvascular ischemic disease. Senescent calcifications of the basal ganglia. Cerebral vascular and falx cerebri calcifications. The calvarium is intact. Mastoid air cells are clear. There is minimal mucosal thickening of the ethmoid air cells. Hypoplastic frontal sinuses. Unremarkable soft tissues and orbits. Prior bilateral lens repair. Left frontal scalp lipoma, 1.8 x 0.3 cm. IMPRESSION: No acute intracranial abnormality. ACT 112: Negative or not required by law. The above report was generated using voice recognition software. It may contain grammatical, syntax or spelling errors. Electronically signed by: Douglas Craft M.D. 09/27/2021 3:27 PM Discharge Plan Visit Data Chief Complaint: Illness Discharge Problem: COVID-19, A-fib, Elevated troponin I level, Weakness, Alteration consciousness, Fever Discharge Instructions Interventions: ED Discharge Assessment Last Done: 09/27/21 17:26
[2021-09-27] MEDS ORDERED: SODIUM CHLORIDE 0.9% 1000ML 1,000 ML IV ONE (14:51)
[2021-09-27] MEDS ORDERED: SODIUM CHLORIDE 0.9% 500 ML IV SCH (15:00)
[2021-09-27 15:05] LABS: Basophils # (auto) 0.02 K/uL (0-0.2); Basophils % (auto) 0.4 %; Eosinophils # (auto) 0.01 K/uL (0-0.5); Eosinophils % (auto) 0.2 %; Hemoglobin 15.3 g/dL (12.0-16.0); Lymphocytes # (auto) 1.09 K/uL (1.2-3.4); Lymphocytes % (auto) 19.7 %; Mean Corpuscular Hemoglobin 28.6 pg (25-34); Mean Corpuscular Hgb Conc 32.6 g/dL (32-36); Mean Corpuscular Volume 87.9 fL (80-100); Mean Platelet Volume 11.2 fL (7.4-10.4); Monocytes # (auto) 0.92 K/uL (0.11-0.59); Monocytes % (auto) 16.6 %; Neutrophils # (auto) 3.49 K/uL (1.4-6.5); Neutrophils % (auto) 63.1 %; Platelet Count 190 K/uL (130-400); RDW Coefficient of Variation 15.3 % (11.5-14.5); RDW Standard Deviation 48.7 fL (36.4-46.3); Red Blood Count 5.35 M/uL (4.2-5.4); White Blood Count 5.53 K/uL (4.8-10.8)
--- NOTE | 2021-09-27 15:05 | XRay Report ---
XR chest 1V portable CLINICAL HISTORY: weakness TECHNIQUE: Single frontal radiograph of the chest was obtained. Comparison: Comparison is made to chest one view 09/14/2021 FINDINGS: Dual lead pacemaker is seen. Cardiomegaly is noted. There is prominence and cephalization of the vasc ulature with Mirella B lines seen. No evidence of pleural effusion or pneumothorax. IMPRESSION: Moderate pulmonary edema. This represents an increase from prior exam. ACT 112: Negative or not required by law. Electronically signed by: Moi Whitmore M.D. 09/27/2021 3:04 PM
--- NOTE | 2021-09-27 15:28 | CT Scan Report ---
CT head/brain wo con CLINICAL HISTORY: 86 years-old Female with change in mental status. Acutely altered mental status TECHNIQUE: Multiple axial CT images of the head were obtained without contrast. A dose lowering tech nique was utilized adhering to the principles of ALARA. CT DOSE: 537.48 mGy.cm COMPARISON: Head CT 09/14/2021 FINDINGS: No acute intracranial hemorrhage, midline shift, intracranial mass, hydrocephalus, territorial ischem ia or abnormal extra-axial collection. Age-related involutional changes. White matter hypodensities s uggest chronic microvascular ischemic disease. Senescent calcifications of the basal ganglia. Cerebra l vascular and falx cerebri calcifications. The calvarium is intact. Mastoid air cells are clear. There is minimal mucosal thickening of the eth moid air cells. Hypoplastic frontal sinuses. Unremarkable soft tissues and orbits. Prior bilateral le ns repair. Left frontal scalp lipoma, 1.8 x 0.3 cm. IMPRESSION: No acute intracranial abnormality. ACT 112: Negative or not required by law. The above report was generated using voice recognition software. It may contain grammatical, syntax o r spelling errors. Electronically signed by: Douglas Craft M.D. 09/27/2021 3:27 PM
[2021-09-27 15:34] LABS: Anion Gap 10 (3-11); BUN Creatinine Ratio 16.7 (10-20); Blood Urea Nitrogen 15 mg/dl (6-23); Calcium 9.4 mg/dl (8.5-10.1); Carbon Dioxide 27 mmol/L (21-32); Chloride 103 mmol/L (98-107); Creatinine Clr Calc Pharmacy 38.1 ml/min; Est GFR (African American) 66.2 ml/min; Est GFR (Non-African American) 57.1 ml/min; Glucose 96 mg/dl (70-99); Potassium 3.8 mmol/L (3.5-5.1); Sodium 140 mmol/L (136-145)
[2021-09-27 15:45] LABS: Thyroid Stimulating Hormone 0.898 uIu/ml (0.300-4.500)
[2021-09-27 15:48] LABS: Influenza A virus by PCR Negative (Neg); Influenza B virus by PCR Negative (Neg); RSV by PCR Negative (Neg)
[2021-09-27 15:52] LABS: SARS CoV2 RNA(COVID-19) InHosp POSITIVE (Negative)
[2021-09-27 15:55] LABS: Appearance Urine Clear (Clear); Bacteria Urine Automated Negative (Negative); Bilirubin Urine Negative (Negative); Blood Urine 1+ (Negative); Color Urine Yellow; Epithelial Cell Urine Auto >30 /lpf (0-5); Glucose Urine UA Negative (Negative); Ketones Urine Trace (Negative); Leukocyte Esterase Urine Negative (Negative); Nitrite Urine Negative (Negative); Protein Urine Negative (Negative); Specific Gravity Urine 1.019 (1.000-1.030); Urobilinogen Urine Negative (Negative)
[2021-09-27 15:55] LABS: Alanine Aminotransferase < 3 U/L (7-52); Albumin Globulin Ratio 1.1 (0.9-2); Alkaline Phosphatase 132 U/L (34-104); Aspartate Aminotransferase 19 U/L (13-39); Bilirubin,Total 0.7 mg/dl (0.2-1.0); Globulin 3.6 gm/dl (2.5-4.0); Total Protein 7.6 gm/dl (6.0-8.3); Troponin I 0.05 ng/ml (0-0.04)
--- NOTE | 2021-09-27 16:53 | Electrocardiogram Report ---
Test Reason : Blood Pressure : / mmHG Vent. Rate : 071 BPM Atrial Rate : 080 BPM P-R Int : 000 ms QRS Dur : 116 ms QT Int : 438 ms P-R-T Axes : 000 -46 -71 degrees QTc Int : 475 ms Atrial fibrillation with occasional ventricular-paced complexes Left anterior fascicular block Left ventricular hypertrophy with QRS widening Chronic T-wave inversion in multiple leads Abnormal ECG When compared with ECG of 03-JAN-2021 10:04, Vent. rate has increased BY 4 BPM Otherwise no significant change Confirmed by Chon Brown ([id number]) on 09/27/2021 4:52:35 PM Referred By: REFERRED SELF Confirmed By:Chon Brown
--- NOTE | 2021-09-27 16:55 | History & Physical Report ---
Date of Service September 27, 2021 Assessment & Plan (1) Encephalopathy: Plan: Patient presents with acute encephalopathy with a baseline history of memory impairment from her Parkinson's disease. enephalopathy is undetermined at this time but considerations are metabolic encephalopathy from acute COVID infection associate with fever. Patient is not on many psychotropic medications. Certainly will rule out other causes of metabolic encephalopathy with significan t suprapubic and left lower quadrant abdominal pain on exam. Blood and urine culture sent. Chest x-ray does not show a defined pneumonia but does have bilateral interstitial changes which could be consistent with the early stages of COVID-pneumonia. Given concern for UTI or diverticulitis patient be started on Zosyn therapy. Will not start dexamethasone therapy at this time until we determine whether or not she has a bacterial infection. Procalcitonin is also added to the ER blood work CT Abd/pelvis with oral contrast ordered (2) COVID-19 virus infection: Plan: With regard to COVID infection with chest x-ray changes. Patient has 96% oxygen saturations on room air initiate treatment for COVID at this point in time until we rule out bacterial infection and perhaps she declares with more oxygen need. patient is given Lasix 20 mg x 1 dose that she was volume resuscitated in the ER prior to admission. First symptoms: ~Has been feeling ill for 5 days First tested: in our system 09/27/2021 Vaccinated: No Admission date: 09/27/2021 Admission O2 requirement: Room air Admission CRP: Pending Dexamethasone course started: Not started with concern for bacterial infection Remdesivir started: Does not meet indication Remdesivir contraindication: Tocilizumab given/baricitinib started: Does not meet indication Tocilizumab/baricitinib contraindication: Antibiotics: Started on Zosyn for concern of intra-abdominal process (3) A-fib: Plan: Patient remains in rate controlled atrial fibrillation she is on metoprolol 25 she does not appear to be chronically anticoagulated Last echocardiogram performed in 2020 shows preserved ejection fraction with moderate mitral regurgitation (4) Hypertension: Plan: Typical metoprolol for blood pressure control with amlodipine 2.5 this is held. She remains on aspirin and atorvastatin for secondary risk prevention (5) Parkinson disease: Plan: Remain on Sinemet therapy as long as she can take p.o. possibly associated depression she will continue on Remeron (6) DVT prophylaxis: Plan: DVT prevention will be enoxaparin 0.5 mg subcu every 12 will be delayed until the results of her abdomen pelvis CAT scan are returned in the meantime she will have SCDs History of Present Illness Primary Care Provider: Nohemy Abel Patient does present via EMS due to concern for decreased responsive communicat bernardino by her caregiver. Patient is a caregiver for progressive Parkinson's disease patient reportedly has been unable to be contacted by her family for 5 days she is cared for by in-home caregivers. Caregivers called off last evening subsequently the family was notified that the caregivers have COVID. Then when the caregivers arrived today to see the patient she was with decreased responsiveness and they called EMS. reports that the caregiver had stated that the patient had been unresponsive on the couch since this morning. No known last known well. No reported falls or trauma. Patient's BSG was normal with a slightly elevated temperature at 101.1. No medications given in route Family states that he usual data fairly patient can walk around independently can perform activities of daily living and feed herself he just needs caregivers because of some her mild forgetful state for safety and to perform some [facility] care in her home patient lives by herself in her own home with caregiver support In the ER the patient has a negative CT scan of her head. She has mild congestive changes seen on chest x-ray. She has COVID-positive state. Mild elevation of her troponin, significant abdominal pain on exam Allergies Allergy/AdvReac Type Severity Reaction Status Date / Time adhesive tape Allergy Rash Unverified 09/27/21 16:06 morphine Allergy Hives Unverified 09/27/21 16:06 Sulfa (Sulfonamide Allergy Unknown Unverified 09/27/21 16:06 Antibiotics) cephalexin AdvReac Unknown Unverified 09/27/21 16:06 Home Medications Medication Instructions Recorded Confirmed Type atorvastatin 10 mg tablet 10 mg PO QAM 02/12/20 09/27/21 History carbidopa 25 mg-levodopa 100 mg 1 tab PO TID 02/12/20 09/27/21 History tablet (Sinemet) gabapentin 100 mg capsule 100 mg PO TID 02/12/20 09/27/21 History pantoprazole 20 mg tablet,delayed 20 mg PO QAM 02/12/20 09/27/21 History release (Protonix) aspirin 81 mg tablet,delayed 81 mg PO QAM 09/24/20 09/27/21 History release amlodipine 2.5 mg tablet 2.5 mg PO DAILY #30 tab 09/26/20 09/27/21 Rx acetaminophen 325 mg tablet 650 mg PO Q4H PRN 09/27/21 09/27/21 History guaifenesin 600 mg tablet, 600 mg PO BID 09/27/21 09/27/21 History extended release 12 hr (Mucinex) loratadine 10 mg tablet 10 mg PO DAILY 09/27/21 09/27/21 History metoprolol succinate 25 mg 25 mg PO DAILY 09/27/21 09/27/21 History tablet,extended release 24 hr mirtazapine 30 mg tablet 30 mg PO HS 09/27/21 09/27/21 History psyllium husk 0.52 gram capsule 0.52 g PO TID 09/27/21 09/27/21 History (Metamucil) Past Med/Surg History Medical History A-fib History of CVA (cerebrovascular accident) History of diverticulitis Hypertension Parkinson disease Presence of cardiac pacemaker 09/27/2015 Presence of Watchman left atrial appendage closure device 04/04/2019 Social History Smoking Status: Unknown if ever smoked Hx Alcohol Use: No Hx Substance Use: No Preferred Language: Thai Communication Ability: Effective Armament Repairer Required: No Beliefs That Will Affect Care: None Current Living Situation: Alone Feels Safe at Home: Yes Assistive Devices: Denture - Upper and Denture - Lower Review of Systems Review of Systems: Unobtainable due to cognitive status Physical Exam Physical Exam: The patient appeared mild to moderate abdominal pain but not respiratory distress Vital signs as documented. Head exam is normocephalic atraumatic Neck is without JVD, thyromegaly, or carotid bruits. Lungs are clear bilaterally in all lung donohue tachypnea Cardiac exam, Rhythm sounds regular does have history of atrial fibrillation Abdominal exam reveals normal bowel sounds, soft. Tenderness in the suprapubic and left lower quadrant area Patient has previously had an appendectomy with appropriate scarring and cholecystectomy with appropriate scarring but she also has a midline abdominal scar the family is unaware of what surgery that was related to Extremities are nonedematous and both pedal pulses are present Neurologic exam follows commands speaks quietly spontaneously moves all extremities and does do move extremities to commands Skin is without bruises or rashes Psychologically is witht concerns for dementia Results & Data Results & Data ([facility]) Vital Signs (Past 12 Hours) Vital Signs Temp Pulse Resp BP Pulse Ox 09/27/21 14:40 100.8 F H 64 17 142/74 H 99 Diagnostic Findings Chest X-Ray 09/27/21 14:50 XR chest 1V portable CLINICAL HISTORY: weakness TECHNIQUE: Single frontal radiograph of the chest was obtained. Comparison: Comparison is made to chest one view 09/14/2021 FINDINGS: Dual lead pacemaker is seen. Cardiomegaly is noted. There is prominence and cephalization of the vasculature with Mirella B lines seen. No evidence of pleural effusion or pneumothorax. IMPRESSION: Moderate pulmonary edema. This represents an increase from prior exam. ACT 112: Negative or not required by law. Electronically signed by: Mio Whitmore M.D. 09/27/2021 3:[address] 09/27/21 14:50 CT head/brain wo con CLINICAL HISTORY: 86 years-old Female with change in mental status. Acutely altered mental status TECHNIQUE: Multiple axial CT images of the head were obtained without contrast. A dose lowering technique was utilized adhering to the principles of ALARA. CT DOSE: 537.48 mGy.cm COMPARISON: Head CT 09/14/2021 FINDINGS: No acute intracranial hemorrhage, midline shift, intracranial mass, hydrocephalus, territorial ischemia or abnormal extra-axial collection. Age- related involutional changes. White matter hypodensities suggest chronic microvascular ischemic disease. Senescent calcifications of the basal ganglia. Cerebral vascular and falx cerebri calcifications. The calvarium is intact. Mastoid air cells are clear. There is minimal mucosal thickening of the ethmoid air cells. Hypoplastic frontal sinuses. Unremarkable soft tissues and orbits. Prior bilateral lens repair. Left frontal scalp lipoma, 1.8 x 0.3 cm. IMPRESSION: No acute intracranial abnormality. ACT 112: Negative or not required by law. The above report was generated using voice recognition software. It may contain grammatical, syntax or spelling errors. Electronically signed by: Douglas Craft M.D. 09/27/2021 3:27 PM ECG Additional Comments: Atrial fibrillation controlled ventricular response right bundle branch block lateral T wave inversions this EKG is similar to a previous nonpaced EKG dated September 24, 2020 Code Status & VTE Plan VTE Prophylaxis Plan VTE Prophylaxis will be ordered: Yes PG Care Time/CCT Total # of Minutes Spent Total Time Spent with Patient: Total time spent is greater than 50% in coordination of care (as documented) at patient's floor/unit and/or counseling patient: Coding Level of Care Code 40367 Initial Inpt Care Lvl 3 Diagnoses A-fib I48.11 Atrial fibrillation type: longstanding persistent Hypertension I10 Parkinson disease G20 COVID-19 virus infection U07.1 Encephalopathy G93.40 DVT prophylaxis Z29.9 (1) A-fib Atrial fibrillation type: longstanding persistent Qualified Code(s): I48.11 - Longstanding persistent atrial fibrillation
[2021-09-27] MEDS ORDERED: FUROSEMIDE INJ 20 MG/2 ML VIAL IV ONE (18:06)
[2021-09-27] MEDS ORDERED: ACETAMINOPHEN 325 MG TAB PO PRN (18:06)
[2021-09-27] MEDS ORDERED: PIPERACILLIN/TAZOBACTAM 4.5 GM in DEXTROSE 5% 100 ML IV SCH (18:06)
[2021-09-27] MEDS ORDERED: ONDANSETRON INJ 2 MG/ML 2 ML VIAL IV PRN (18:06)
[2021-09-27] MEDS ORDERED: ALUMINUM/MAGNESIUM SUSP 30 ML UDC PO PRN (18:06)
[2021-09-27] MEDS ORDERED: PIPERACILL/TAZOBAC CONSULT ACTIVE PRN (18:06)
[2021-09-27] MEDS ORDERED: POLYETHYLENE (MIRALAX) 17 GM PACK PO PRN (18:06)
[2021-09-27] MEDS ORDERED: PIPERACILLIN/TAZOBACTAM 3.375 GM in DEXTROSE 5% 100 ML IV ONE (18:30)
[2021-09-27] MEDS: CARBIDOPA/LEVODOPA 25/100MG EXT REL TAB PO SCH (20:02)
[2021-09-27] MEDS: GABAPENTIN 100 MG CAP PO SCH (20:14)
[2021-09-27] MEDS: MIRTAZAPINE TAB 15 MG TAB PO SCH (20:15)
[2021-09-27] MEDS: PSYLLIUM 58.6% POWDER PACKET PO SCH (20:15)
[2021-09-27] MEDS: guaiFENesin 600 MG TABCR PO SCH (20:15)
--- NOTE | 2021-09-27 20:44 | CT Scan Report ---
CT abd pelvis oral con only CLINICAL HISTORY: eval for diverticulitis TECHNIQUE: Helical axial images of the abdomen and pelvis were obtained. Automated dose lowering tech niques and/or adjustment according to patient size were utilized for this exam. This exam was perfor med without intravenous contrast. COMPARISON: None available at the time of this dictation. FINDINGS: Lower chest: Bibasilar atelectasis is seen. Liver: Hepatic cysts are seen. Gallbladder and biliary tree: Cholelithiasis is seen without evidence of cholecystitis. No intra- or extrahepatic biliary ductal dilation. Pancreas: Unremarkable, no focal lesions. Spleen: Unremarkable. Adrenals: Unremarkable. Kidneys and ureters: Bilateral pelviectasis is seen. Bladder: Limited evaluation due to underdistention. Reproductive organs: Unremarkable. Bowel: A hiatal hernia is seen. Extensive diverticular disease is seen. There is possibly increased w all thickening and vascular prominence about the sigmoid colon. Lymph nodes Retroperitoneal: Unremarkable. Mesenteric: Unremarkable. Pelvic: Unremarkable. Peritoneum: Normal Vessels: Unremarkable. Abdominal wall: Right fat-containing inguinal hernia. Bones: Unremarkable. IMPRESSION: There is vascular prominence and mild wall thickening in the sigmoid colon. This may represent mild s igmoid diverticulitis without evidence of perforation or abscess. ACT 112: Negative or not required by law. Electronically signed by: Mio Whitmore M.D. 09/27/2021 8:42 PM
[2021-09-28] MEDS: PIPERACILLIN/TAZOBACTAM 3.375 GM in DEXTROSE 5% 100 ML IV SCH ×4 (00:33→23:51)
[2021-09-28] MEDS ORDERED: LABETALOL HCL IV 5 MG/ML 20ML IV STA (01:46)
[2021-09-28] MEDS: CARBIDOPA/LEVODOPA 25/100MG EXT REL TAB PO SCH ×3 (08:39→16:26)
[2021-09-28] MEDS: PSYLLIUM 58.6% POWDER PACKET PO SCH ×3 (08:40→20:34)
[2021-09-28] MEDS: GABAPENTIN 100 MG CAP PO SCH ×3 (08:40→20:34)
[2021-09-28] MEDS: PANTOprazole 40 MG TAB PO SCH (08:40)
[2021-09-28] MEDS: METOPROLOL SUCC 25MG EXT REL TAB PO SCH (08:40)
[2021-09-28] MEDS: ASPIRIN 81 MG ECTAB PO SCH (08:40)
[2021-09-28] MEDS: ATORVASTATIN 10 MG TAB PO SCH (08:41)
[2021-09-28] MEDS: guaiFENesin 600 MG TABCR PO SCH ×2 (08:41→20:34)
[2021-09-28] MEDS: ENOXAPARIN INJ 30 MG/0.3 ML SYR SQ SCH ×2 (08:56→18:55)
[2021-09-28 10:55] LABS: Basophils # (auto) 0.01 K/uL (0-0.2); Basophils % (auto) 0.2 %; Hematocrit (blood only) 43.9 % (37-47); Hemoglobin 14.2 g/dL (12.0-16.0); Lymphocytes # (auto) 1.68 K/uL (1.2-3.4); Lymphocytes % (auto) 32.9 %; Mean Corpuscular Hemoglobin 28.5 pg (25-34); Mean Corpuscular Hgb Conc 32.3 g/dL (32-36); Mean Corpuscular Volume 88.2 fL (80-100); Mean Platelet Volume 10.9 fL (7.4-10.4); Monocytes # (auto) 1.05 K/uL (0.11-0.59); Monocytes % (auto) 20.6 %; Neutrophils # (auto) 2.36 K/uL (1.4-6.5); Neutrophils % (auto) 46.3 %; Platelet Count 158 K/uL (130-400); RDW Coefficient of Variation 15.3 % (11.5-14.5); Red Blood Count 4.98 M/uL (4.2-5.4)
[2021-09-28 11:20] LABS: Anion Gap 9 (3-11); BUN Creatinine Ratio 15.3 (10-20); Blood Urea Nitrogen 15 mg/dl (6-23); Calcium 8.4 mg/dl (8.5-10.1); Carbon Dioxide 28 mmol/L (21-32); Chloride 104 mmol/L (98-107); Creatinine Clr Calc Pharmacy 34.5 ml/min; Est GFR (African American) 59.7 ml/min; Est GFR (Non-African American) 51.5 ml/min; Glucose 98 mg/dl (70-99); Potassium 3.3 mmol/L (3.5-5.1); Sodium 141 mmol/L (136-145)
[2021-09-28 11:27] LABS: Alanine Aminotransferase < 3 U/L (7-52); Albumin Globulin Ratio 1.1 (0.9-2); Albumin Level 3.4 gm/dl (3.4-5.0); Alkaline Phosphatase 104 U/L (34-104); Aspartate Aminotransferase 19 U/L (13-39); Bilirubin,Total 0.8 mg/dl (0.2-1.0); Total Protein 6.4 gm/dl (6.0-8.3); Troponin I 0.05 ng/ml (0-0.04)
[2021-09-28] MEDS ORDERED: POTASSIUM CHLORIDE CRTAB 20 MEQ TABCR PO STA (11:38)
[2021-09-28] MEDS: NSS + 20MEQ KCL 20 MEQ/1,000 ML BAG IV SCH (14:21)
--- NOTE | 2021-09-28 18:10 | Hospitalist Progress Note ---
Date of Service September 28, 2021 Assessment & Plan (1) Encephalopathy: Plan: Patient presents with acute encephalopathy with a baseline history of memory impairment from her Parkinson's disease. Likely secondary to metabolic encephalopathy from acute COVID infection associate with fever and from acute diverticulitis continue treating COVID and diverticulitis as below (2) COVID-19 virus infection: Plan: with acute respiratory failure iwth hypoxia ~Has been feeling ill for 5 days First tested: in our system 09/27/2021 Vaccinated: No CXR with mod pulm edema, no definite PNA POx now< 94% and was reuqiring 2LNC--> start Dexamethasone and Remdesevir continue supplemental O2 as needed o leep POx>92% start IC and flutter valve -giving gentle IVFs for maintenance while NPO for diverticulitis follow CBC,CMP, CRP (3) A-fib: Plan: Patient remains in rate controlled atrial fibrillation she is on metoprolol 25 she does not appear to be chronically anticoagulated due to Watchman device Last echocardiogram performed in 2020 shows preserved ejection fraction with moderate mitral regurgitation monitor on tele (4) Hypertension: Plan: BPs mildly high -continue metoprolol -restart home amlodipine - She remains on aspirin and atorvastatin for secondary risk prevention (5) Parkinson disease: Plan: -continue on Sinemet therapy -continue on Remeron (6) Acute diverticulitis: Plan: acute sigmoid diverticulitis and TTP on exam -continue IV ZOsyn make NPO and start gentle maintenace IVFs -pain control as needed (7) Hypokalemia: Plan: K+ 3.3 replace with IVFs as she is refusing po KCl follow BMP, Mag (8) Presence of cardiac pacemaker: Plan: noted (9) Presence of Watchman left atrial appendage closure device: Plan: noted, not on AC for Afib for this (10) Elevated troponin I level: Plan: mild elevation and trended back downward, no acute ischemia on ECG and no chest pain myocardial demand ischemia (11) DVT prophylaxis: Plan: Lovenox but she is refusing this SCDs Plan: Dispo-continued stay PT/OT ordered Admission and Anticipated Discharge Date Admission Date: September 27, 2021 Subjective Pt very fatigued but does wake up and answer my questions. Won't answer me if I ask about abdominal pain, but grimaces when I palpate her abdomen. Was not wanting to take any pills today. Made NPO for diverticulitis No chest pain, no SOB. Not on O2 Tele with paced rhythm, Afib, rates 60s Review of Systems Review of Systems: All systems reviewed & are unremarkable except as noted in HPI & below Physical Exam Constitutional: + ill appearing, + frail appearing and cooperative Eyes: + eyelid abnormality (bilat lid lag) and + anicteric sclerae Neck: trachea midline, no thyromegaly Respiratory: normal respiratory effort, lungs clear to auscultation Cardiovascular: RRR, no murmur, no edema Chest (Breasts): Chest: normal inspection of chest Gastrointestinal (Abdomen): Inspection/Auscultation: abdomen normal to inspection and normal bowel sounds; abdomen not distended Percussion/ Palpation: + abdomen tender (+TTP over lower abdomen, especially LLQ, soft no guarding) and abdomen soft; no guarding Musculoskeletal: Extremities: extremities normal to inspection; no cyanosis and no clubbing Skin: no rashes, warm and dry Neurologic: moves all extremities and awake; no focal motor deficits Psychiatric: Orientation: alert, oriented to person, oriented to place and cooperative Lymphatic: no lymphedema Results & Data Results & Data ([facility]) Vital Signs (Past 12 Hours) Vital Signs Temp Pulse Pulse Resp BP Pulse Ox 09/28/21 15:27 36.9 C 60 18 155/77 H 92 09/28/21 11:09 60 09/28/21 10:50 36.5 C 64 24 130/59 L 95 09/28/21 10:26 37.4 C 64 16 173/71 H 94 09/28/21 06:11 37.4 C 64 16 173/71 H 92 Laboratory Results 09/28/21 09/28/21 09/27/21 Range/Units 10:30 10:30 21:00 WBC 5.10 (4.8-10.8) K/uL RBC 4.98 (4.2-5.4) M/uL Hgb 14.2 (12.0-16.0) g/dL Hct 43.9 (37-47) % MCV 88.2 (80-100) fL MCH 28.5 (25-34) pg MCHC 32.3 (32-36) g/dL RDW Std Deviation 49.0 H (36.4-46.3) fL RDW Coeff of Dontae 15.3 H (11.5-14.5) % Plt Count 158 (130-400) K/uL MPV 10.9 H (7.4-10.4) fL Immature Gran % (Auto) 0.0 % Neut % (Auto) 46.3 % Lymph % (Auto) 32.9 % Sibley % (Auto) 20.6 % Eos % (Auto) 0.0 % Baso % (Auto) 0.2 % Neut # (Auto) 2.36 (1.4-6.5) K/uL Lymph # (Auto) 1.68 (1.2-3.4) K/uL Sibley # (Auto) 1.05 H (0.11-0.59) K/uL Eos # (Auto) 0.00 (0-0.5) K/uL Baso # (Auto) 0.01 (0-0.2) K/uL Immature Gran # (Auto) 0.00 (0.00-0.02) K/uL Sodium 141 (136-145) mmol/L Potassium 3.3 L (3.5-5.1) mmol/L Chloride 104 (98-107) mmol/L Carbon Dioxide 28 (21-32) mmol/L Anion Gap 9 (3-11) BUN 15 (6-23) mg/dl Creatinine 0.98 (0.6-1.2) mg/dl Est Cr Clr Drug Dosing 34.5 ml/min Est GFR ( Amer) 59.7 ml/min Est GFR (Non-Af Amer) 51.5 ml/min BUN/Creatinine Ratio 15.3 (10-20) Glucose 98 (70-99) mg/dl Calcium 8.4 L (8.5-10.1) mg/dl Total Bilirubin 0.8 (0.2-1.0) mg/dl AST 19 (13-39) U/L ALT < 3 L (7-52) U/L Alkaline Phosphatase 104 (34-104) U/L Troponin I 0.05 H* 0.06 H* (0-0.04) ng/ml C-Reactive Protein 1.09 (0-5.00) mg/dl Total Protein 6.4 (6.0-8.3) gm/dl Albumin 3.4 (3.4-5.0) gm/dl Globulin 3.0 (2.5-4.0) gm/dl Albumin/Globulin Ratio 1.1 (0.9-2) Procalcitonin (0-0.5) ng/ml 09/27/21 Range/Units 14:45 WBC (4.8-10.8) K/uL RBC (4.2-5.4) M/uL Hgb (12.0-16.0) g/dL Hct (37-47) % MCV (80-100) fL MCH (25-34) pg MCHC (32-36) g/dL RDW Std Deviation (36.4-46.3) fL RDW Coeff of Dontae (11.5-14.5) % Plt Count (130-400) K/uL MPV (7.4-10.4) fL Immature Gran % (Auto) % Neut % (Auto) % Lymph % (Auto) % Sibley % (Auto) % Eos % (Auto) % Baso % (Auto) % Neut # (Auto) (1.4-6.5) K/uL Lymph # (Auto) (1.2-3.4) K/uL Sibley # (Auto) (0.11-0.59) K/uL Eos # (Auto) (0-0.5) K/uL Baso # (Auto) (0-0.2) K/uL Immature Gran # (Auto) (0.00-0.02) K/uL Sodium (136-145) mmol/L Potassium (3.5-5.1) mmol/L Chloride (98-107) mmol/L Carbon Dioxide (21-32) mmol/L Anion Gap (3-11) BUN (6-23) mg/dl Creatinine (0.6-1.2) mg/dl Est Cr Clr Drug Dosing ml/min Est GFR ( Amer) ml/min Est GFR (Non-Af Amer) ml/min BUN/Creatinine Ratio (10-20) Glucose (70-99) mg/dl Calcium (8.5-10.1) mg/dl Total Bilirubin (0.2-1.0) mg/dl AST (13-39) U/L ALT (7-52) U/L Alkaline Phosphatase (34-104) U/L Troponin I (0-0.04) ng/ml C-Reactive Protein (0-5.00) mg/dl Total Protein (6.0-8.3) gm/dl Albumin (3.4-5.0) gm/dl Globulin (2.5-4.0) gm/dl Albumin/Globulin Ratio (0.9-2) Procalcitonin < 0.05 (0-0.5) ng/ml PG Care Time/CCT Total # of Minutes Spent Total Time Spent with Patient: Total time spent is greater than 50% in coordination of care (as documented) at patient's floor/unit and/or counseling patient: Coding Level of Care Code 55367 Subseq Hosp Care Lvl 3 Diagnoses Encephalopathy G93.40 COVID-19 virus infection U07.1 A-fib I48.91 Atrial fibrillation type: unspecified Hypertension I10 Parkinson disease G20 DVT prophylaxis Z29.9 Acute diverticulitis K57.92 Hypokalemia E87.6 Presence of cardiac pacemaker Z95.0 Presence of Watchman left atrial appendage closure device Z95.818 Elevated troponin I level R77.8 (1) A-fib Atrial fibrillation type: unspecified Qualified Code(s): I48.91 - Unspecified atrial fibrillation
[2021-09-28] MEDS: dexAMETHasone 6 MG in SYRINGE 0 ML IV SCH (18:55)
[2021-09-28] MEDS ORDERED: REMDESIVIR 200 MG in SODIUM CHLORIDE 0.9% 210 ML IV ONE (19:00)
[2021-09-28] MEDS: SODIUM CHLORIDE 0.9% 10ML FLUSH IV SCH (20:32)
[2021-09-28] MEDS: MIRTAZAPINE TAB 15 MG TAB PO SCH (20:34)
[2021-09-29] MEDS: NSS + 20MEQ KCL 20 MEQ/1,000 ML BAG IV SCH ×2 (02:47→19:42)
[2021-09-29] MEDS: ENOXAPARIN INJ 30 MG/0.3 ML SYR SQ SCH (06:27)
[2021-09-29 06:46] LABS: Hematocrit (blood only) 44.8 % (37-47); Hemoglobin 14.9 g/dL (12.0-16.0); Mean Corpuscular Hemoglobin 28.7 pg (25-34); Mean Corpuscular Hgb Conc 33.3 g/dL (32-36); Mean Corpuscular Volume 86.3 fL (80-100); Platelet Count 154 K/uL (130-400); Red Blood Count 5.19 M/uL (4.2-5.4); White Blood Count 3.72 K/uL (4.8-10.8)
[2021-09-29 06:57] LABS: Albumin Globulin Ratio 1.1 (0.9-2); Albumin Level 3.5 gm/dl (3.4-5.0); BUN Creatinine Ratio 19.3 (10-20); Bilirubin Direct 0.1 mg/dl (0-0.2); Bilirubin,Total 0.6 mg/dl (0.2-1.0); Calcium 8.3 mg/dl (8.5-10.1); Creatinine Clr Calc Pharmacy 39.9 ml/min; Globulin 3.1 gm/dl (2.5-4.0); Magnesium 1.7 mg/dl (1.7-2.4); Phosphorus 3.5 mg/dl (2.5-4.9); Potassium 3.7 mmol/L (3.5-5.1); Total Protein 6.6 gm/dl (6.0-8.3)
[2021-09-29 07:29] LABS: Basophils # (auto) 0.01 K/uL (0-0.2); Basophils % (auto) 0.3 %; Immature Granulocytes # (auto) 0.01 K/uL (0.00-0.02); Immature Granulocytes % (auto) 0.3 %; Lymphocytes # (auto) 1.12 K/uL (1.2-3.4); Lymphocytes % (auto) 30.1 %; Monocytes # (auto) 0.16 K/uL (0.11-0.59); Monocytes % (auto) 4.3 %; Neutrophils # (auto) 2.42 K/uL (1.4-6.5)
[2021-09-29] MEDS: PIPERACILLIN/TAZOBACTAM 3.375 GM in DEXTROSE 5% 100 ML IV SCH ×3 (08:56→23:56)
[2021-09-29] MEDS: CARBIDOPA/LEVODOPA 25/100MG EXT REL TAB PO SCH ×3 (08:56→16:55)
[2021-09-29] MEDS: amLODIPine BESYLATE 5 MG TAB PO SCH (08:57)
[2021-09-29] MEDS: GABAPENTIN 100 MG CAP PO SCH ×3 (08:57→20:14)
[2021-09-29] MEDS: guaiFENesin 600 MG TABCR PO SCH ×2 (08:57→20:14)
[2021-09-29] MEDS: dexAMETHasone 6 MG in SYRINGE 0 ML IV SCH (08:57)
[2021-09-29] MEDS: PSYLLIUM 58.6% POWDER PACKET PO SCH ×2 (08:57→14:54)
[2021-09-29] MEDS: ATORVASTATIN 10 MG TAB PO SCH (08:57)
[2021-09-29] MEDS: ASPIRIN 81 MG ECTAB PO SCH (08:57)
[2021-09-29] MEDS: PANTOprazole 40 MG TAB PO SCH (08:58)
[2021-09-29] MEDS: METOPROLOL SUCC 25MG EXT REL TAB PO SCH (08:58)
--- NOTE | 2021-09-29 17:42 | Hospitalist Progress Note ---
Date of Service September 29, 2021 Assessment & Plan (1) Encephalopathy: Plan: Patient presents with acute encephalopathy with a baseline history of memory impairment from her Parkinson's disease. Likely secondary to metabolic encephalopathy from acute COVID infection associate with fever and from acute diverticulitis Much improved today with being more conversational, was OOB to chair, is oriented x 3. 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 First tested: in our system 09/27/2021 Vaccinated: No CXR with mod pulm edema, no definite PNA CRP remains normal at 1.45 Biggest issue is really poor appetite, not tkaing po for at least 2 days POx was< 94% and was requiring 2LNC--> started Dexamethasone and Remdesevir Now on room air on 09/29 continue supplemental O2 as needed to keep POx>92% cont IC and flutter valve -giving gentle IVFs for maintenance for diverticulitis follow CBC,CMP, CRP -ZOfran for nausea but she is refusing to even try Zofran (3) A-fib: Plan: Patient remains in rate controlled atrial fibrillation she is on metoprolol 25 she does not appear to be chronically anticoagulated due to Watchman device Last echocardiogram performed in 2020 shows preserved ejection fraction with moderate mitral regurgitation monitor on tele-in paced rhythm (4) Hypertension: Plan: BPs mildly high -continue metoprolol -continue home amlodipine although she is refusing her meds - She remains on aspirin and atorvastatin for secondary risk prevention-again, has been refusing most of her medications (5) Parkinson disease: Plan: -continue on Sinemet therapy has resting tremor in arm and jaw not taking her SInemet -continue on Remeron (6) Acute diverticulitis: Plan: acute sigmoid diverticulitis and TTP on exam, imprving today with less ttp but has no appetite -continue IV ZOsyn -continue gentle maintenance IVFs -adv diet to clears as tolerated -pain control as needed (7) Hypokalemia: Plan: replaced with IVFs and resolved replace with IVFs as she is refusing po KCl follow BMP, Mag (8) Presence of cardiac pacemaker: Plan: noted (9) Presence of Watchman left atrial appendage closure device: Plan: noted, not on AC for Afib for this (10) Elevated troponin I level: Plan: mild elevation and trended back downward, no acute ischemia on ECG and no chest pain myocardial demand ischemia (11) DVT prophylaxis: Plan: Lovenox but she is refusing this-will discontinue add XU alvarado Plan: Dispo-continued stay PT/OT rocioals appreciated-recommend close supervision at home vs [facility] or SNF Admission and Anticipated Discharge Date Admission Date: September 27, 2021 Subjective Pt feels her abd pain is improved today but she is still not wanting to eat anything, feels nauseated if tries to eat any food. SHe declines any ZOfran-is hesitant to "try any new medications." SHe has not eaten or drank anything today, not taking most meds. Refusing Lovenox as she does not think she is allowed to take blood thinners. She also reports "the doctor told me not to eat or drink anything." But I tom dher I am the doctor and it is ok to eat now with clear liquids since her diverticulitis pain is improving. No BM and is not sure if has passed flatus. Wants me to call her niece and request her black shoes be brought in so she can walk around better No CP or SOB, no cough Tele with paced rhythm in the 60s Review of Systems Review of Systems: All systems reviewed & are unremarkable except as noted in HPI & below Physical Exam Constitutional: + ill appearing, + frail appearing and cooperative Eyes: + eyelid abnormality (bilat lid lag) and + anicteric sclerae Neck: trachea midline, no thyromegaly Respiratory: normal respiratory effort, lungs clear to auscultation Cardiovascular: RRR, no murmur, no edema Chest (Breasts): Chest: normal inspection of chest Gastrointestinal (Abdomen): Inspection/Auscultation: abdomen normal to inspection and normal bowel sounds; abdomen not distended Percussion/Palpation: + abdomen tender (+TTP mild in LLQ, no guarding, improved) and abdomen soft; no guarding Musculoskeletal: Extremities: extremities normal to inspection; no cyanosis and no clubbing Skin: no rashes, warm and dry Neurologic: moves all extremities and awake; no focal motor deficits Psychiatric: Orientation: alert, oriented to person, oriented to place and cooperative Lymphatic: no lymphedema Results & Data Results & Data ([facility]) Vital Signs (Past 12 Hours) Vital Signs Temp Pulse Resp BP Pulse Ox 09/29/21 15:01 70 20 155/78 H 95 09/29/21 11:07 36.3 C L 63 20 167/72 H 93 09/29/21 07:36 36.3 C L 60 16 162/69 H 93 Laboratory Results 09/29/21 09/29/21 Range/Units 05:56 05:56 WBC 3.72 L (4.8-10.8) K/uL RBC 5.19 (4.2-5.4) M/uL Hgb 14.9 (12.0-16.0) g/dL Hct 44.8 (37-47) % MCV 86.3 (80-100) fL MCH 28.7 (25-34) pg MCHC 33.3 (32-36) g/dL Plt Count 154 (130-400) K/uL Immature Gran % (Auto) 0.3 % Neut % (Auto) 65.0 % Lymph % (Auto) 30.1 % [place] % (Auto) 4.3 % Eos % (Auto) 0.0 % Baso % (Auto) 0.3 % Neut # (Auto) 2.42 (1.4-6.5) K/uL Lymph # (Auto) 1.12 L (1.2-3.4) K/uL [place] # (Auto) 0.16 (0.11-0.59) K/uL Eos # (Auto) 0.00 (0-0.5) K/uL Baso # (Auto) 0.01 (0-0.2) K/uL Immature Gran # (Auto) 0.01 (0.00-0.02) K/uL Sodium 142 (136-145) mmol/L Potassium 3.7 (3.5-5.1) mmol/L Chloride 109 H (98-107) mmol/L Carbon Dioxide 21 (21-32) mmol/L Anion Gap 12 H (3-11) BUN 16 (6-23) mg/dl Creatinine 0.83 (0.6-1.2) mg/dl Est Cr Clr Drug Dosing 39.9 ml/min Est GFR ( Amer) 73.0 ml/min Est GFR (Non-Af Amer) 63.0 ml/min BUN/Creatinine Ratio 19.3 (10-20) Glucose 145 H (70-99) mg/dl Calcium 8.3 L (8.5-10.1) mg/dl Phosphorus 3.5 (2.5-4.9) mg/dl Magnesium 1.7 (1.7-2.4) mg/dl Total Bilirubin 0.6 (0.2-1.0) mg/dl Direct Bilirubin 0.1 (0-0.2) mg/dl AST 18 (13-39) U/L ALT 4 L (7-52) U/L Alkaline Phosphatase 102 (34-104) U/L C-Reactive Protein 1.45 (0-5.00) mg/dl Total Protein 6.6 (6.0-8.3) gm/dl Albumin 3.5 (3.4-5.0) gm/dl Globulin 3.1 (2.5-4.0) gm/dl Albumin/Globulin Ratio 1.1 (0.9-2) PG Care Time/CCT Total # of Minutes Spent Total Time Spent with Patient: Total time spent is greater than 50% in coordination of care (as documented) at patient's floor/unit and/or counseling patient: Coding Level of Care Code 45519 Subseq Hosp Care Lvl 2 Diagnoses Encephalopathy G93.40 COVID-19 virus infection U07.1 A-fib I48.91 Atrial fibrillation type: unspecified Hypertension I10 Parkinson disease G20 Acute diverticulitis K57.92 Hypokalemia E87.6 Presence of cardiac pacemaker Z95.0 Presence of Watchman left atrial appendage closure device Z95.818 Elevated troponin I level R77.8 DVT prophylaxis Z29.9 (1) A-fib Atrial fibrillation type: unspecified Qualified Code(s): I48.91 - Unspecified atrial fibrillation
[2021-09-29] MEDS: REMDESIVIR 100 MG in SODIUM CHLORIDE 0.9% 230 ML IV SCH (19:49)
[2021-09-29] MEDS: MIRTAZAPINE TAB 15 MG TAB PO SCH (20:14)
[2021-09-29] MEDS: SODIUM CHLORIDE 0.9% 10ML FLUSH IV SCH (20:58)
[2021-09-30 07:18] LABS: Hematocrit (blood only) 43.8 % (37-47); Hemoglobin 14.3 g/dL (12.0-16.0); Lymphocytes # (auto) 1.56 K/uL (1.2-3.4); Lymphocytes % (auto) 23.9 %; Mean Corpuscular Hemoglobin 28.7 pg (25-34); Mean Corpuscular Hgb Conc 32.6 g/dL (32-36); Mean Corpuscular Volume 87.8 fL (80-100); Mean Platelet Volume 11.5 fL (7.4-10.4); Monocytes # (auto) 0.56 K/uL (0.11-0.59); Monocytes % (auto) 8.6 %; Neutrophils % (auto) 67.5 %; Platelet Count 174 K/uL (130-400); RDW Coefficient of Variation 15.3 % (11.5-14.5); RDW Standard Deviation 49.1 fL (36.4-46.3); Red Blood Count 4.99 M/uL (4.2-5.4); White Blood Count 6.52 K/uL (4.8-10.8)
[2021-09-30 07:46] LABS: Albumin Globulin Ratio 1.2 (0.9-2); Albumin Level 3.6 gm/dl (3.4-5.0); BUN Creatinine Ratio 25.3 (10-20); Bilirubin,Total 0.6 mg/dl (0.2-1.0); Calcium 8.7 mg/dl (8.5-10.1); Creatinine Clr Calc Pharmacy 40.5 ml/min; Magnesium 1.9 mg/dl (1.7-2.4); Phosphorus 2.5 mg/dl (2.5-4.9); Potassium 4.1 mmol/L (3.5-5.1); Total Protein 6.6 gm/dl (6.0-8.3)
[2021-09-30] MEDS: METOPROLOL SUCC 25MG EXT REL TAB PO SCH (08:00)
[2021-09-30] MEDS: GABAPENTIN 100 MG CAP PO SCH ×3 (08:01→20:36)
[2021-09-30] MEDS: guaiFENesin 600 MG TABCR PO SCH ×2 (08:03→20:35)
[2021-09-30] MEDS: amLODIPine BESYLATE 5 MG TAB PO SCH (08:04)
[2021-09-30] MEDS: ASPIRIN 81 MG ECTAB PO SCH (08:06)
[2021-09-30] MEDS: CARBIDOPA/LEVODOPA 25/100MG EXT REL TAB PO SCH ×3 (08:06→17:14)
[2021-09-30] MEDS: ATORVASTATIN 10 MG TAB PO SCH (08:07)
[2021-09-30] MEDS: PANTOprazole 40 MG TAB PO SCH (08:07)
[2021-09-30] MEDS: dexAMETHasone 6 MG in SYRINGE 0 ML IV SCH (09:49)
[2021-09-30] MEDS: PIPERACILLIN/TAZOBACTAM 3.375 GM in DEXTROSE 5% 100 ML IV SCH ×2 (09:54→17:15)
[2021-09-30] MEDS: NSS + 20MEQ KCL 20 MEQ/1,000 ML BAG IV SCH (10:58)
--- NOTE | 2021-09-30 16:05 | Hospitalist Progress Note ---
Date of Service September 30, 2021 Assessment & Plan (1) Encephalopathy: Plan: Patient presents with acute encephalopathy with a baseline history of memory impairment from her Parkinson's disease. 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 Vaccinated: No CXR with mod pulm edema, no definite PNA CRP remains normal at 1.45 Biggest issue was really poor appetite, not taking po for at least 2 days, but now is tolerating liquids diet on 09/30 POx was< 94% and was requiring 2LNC--> started Dexamethasone and Remdesevir Developing a little bit of mild confusion and hallucinations and some mild paran oia on 09/30 as per nursing staff-we will discontinue dexamethasone as she is on room air Now on room air as of 09/29 cont IC and flutter valve -giving gentle IVFs for maintenance for diverticulitis, but can discontinue this once taking more p.o. follow CBC,CMP, CRP (3) A-fib: Plan: Patient remains in rate controlled atrial fibrillation she is on metoprolol 25 she does not appear to be chronically anticoagulated due to Watchman device Last echocardiogram performed in 2020 shows preserved ejection fraction with moderate mitral regurgitation monitor on tele-in paced rhythm (4) Hypertension: Plan: BPs mildly high but improving now that she is taking her p.o. antihypertensive medications after missing them for 2 days -continue metoprolol and amlodipine -She remains on aspirin and atorvastatin for secondary risk prevention (5) Parkinson disease: Plan: -continue on Sinemet therapy has resting tremor in arm and jaw -continue on Remeron (6) Acute diverticulitis: Plan: acute sigmoid diverticulitis and TTP on exam, improved today with minimal tenderness to palpation and much improved appetite -continue IV ZOsyn -continue gentle maintenance IVFs but decreased to 50 mL/h -adv diet to full liquids and hopefully advance to low fiber diet tomorrow-she will need a pured diet as she lost her dentures here in the hospital -pain control as needed (7) Hypokalemia: Plan: replaced and resolved follow BMP, Mag (8) Presence of cardiac pacemaker: Plan: noted (9) Presence of Watchman left atrial appendage closure device: Plan: noted, not on AC for Afib for this (10) Elevated troponin I level: Plan: mild elevation and trended back downward, no acute ischemia on ECG and no chest pain myocardial demand ischemia (11) GERD (gastroesophageal reflux disease): Plan: Continue Protonix (12) DVT prophylaxis: Plan: Lovenox was initially ordered, but she is refusing this-will discontinue XU hose (13) Mood disorder: Plan: Unknown diagnosis Continue home mirtazapine Also on gabapentin-unclear reason Plan: Dispo-continued stay, but slowly improving now, possible discharge through the or Sunday PT/OT evals appreciated-recommend close supervision at home vs [facility] or SNF. Continue to mobilize out of bed with assistance and chair Admission and Anticipated Discharge Date Admission Date: September 27, 2021 Subjective Patient in significantly improved spirits today and is much more awake and alert and interactive. She is tolerating liquids diet today and her appetite has improved. Denies any abdominal pains today. She feels like she moved her bowels a little bit. Denies chest pains or shortness of breath. She is very excited that her niece brought in her black walking shoes and a [employer] for her Telemetry with atrial fibrillation paced rhythm with rates in the 60s to 90s Remains on room air Review of Systems Review of Systems: All systems reviewed & are unremarkable except as noted in HPI & below Physical Exam Constitutional: + frail appearing and cooperative Eyes: + eyelid abnormality (bilat lid lag) and + anicteric sclerae Neck: trachea midline, no thyromegaly Respiratory: normal respiratory effort, lungs clear to auscultation Cardiovascular: RRR, no murmur, no edema Chest (Breasts): Chest: normal inspection of chest Gastrointestinal (Abdomen): Inspection/Auscultation: abdomen normal to inspection and normal bowel sounds; abdomen not distended Percussion/Palpation: + abdomen tender (+TTP mild in LLQ, no guarding, improved) and abdomen soft; no guarding Musculoskeletal: Extremities: extremities normal to inspection; no cyanosis and no clubbing Skin: no rashes, warm and dry Neurologic: moves all extremities and awake; no focal motor deficits Psychiatric: Orientation: alert, oriented to person, oriented to place and cooperative Lymphatic: no lymphedema Results & Data Results & Data ([facility]) Vital Signs (Past 12 Hours) Vital Signs Temp Pulse Resp BP Pulse Ox 09/30/21 14:44 74 18 179/75 H 96 09/30/21 12:37 163/63 H 09/30/21 07:34 36.4 C L 76 20 173/84 H 93 Laboratory Results 09/30/21 09/30/21 Range/Units 06:33 06:33 WBC 6.52 (4.8-10.8) K/uL RBC 4.99 (4.2-5.4) M/uL Hgb 14.3 (12.0-16.0) g/dL Hct 43.8 (37-47) % MCV 87.8 (80-100) fL MCH 28.7 (25-34) pg MCHC 32.6 (32-36) g/dL RDW Std Deviation 49.1 H (36.4-46.3) fL RDW Coeff of D[place]ae 15.3 H (11.5-14.5) % Plt Count 174 (130-400) K/uL MPV 11.5 H (7.4-10.4) fL Immature Gran % (Auto) 0.0 % Neut % (Auto) 67.5 % Lymph % (Auto) 23.9 % [place] % (Auto) 8.6 % Eos % (Auto) 0.0 % Baso % (Auto) 0.0 % Neut # (Auto) 4.40 (1.4-6.5) K/uL Lymph # (Auto) 1.56 (1.2-3.4) K/uL [place] # (Auto) 0.56 (0.11-0.59) K/uL Eos # (Auto) 0.00 (0-0.5) K/uL Baso # (Auto) 0.00 (0-0.2) K/uL Immature Gran # (Auto) 0.00 (0.00-0.02) K/uL Sodium 144 (136-145) mmol/L Potassium 4.1 (3.5-5.1) mmol/L Chloride 112 H (98-107) mmol/L Carbon Dioxide 24 (21-32) mmol/L Anion Gap 8 (3-11) BUN 21 (6-23) mg/dl Creatinine 0.83 (0.6-1.2) mg/dl Est Cr Clr Drug Dosing 40.5 ml/min Est GFR ( Amer) 73.0 ml/min Est GFR (Non-Af Amer) 63.0 ml/min BUN/Creatinine Ratio 25.3 H (10-20) Glucose 106 H (70-99) mg/dl Calcium 8.7 (8.5-10.1) mg/dl Phosphorus 2.5 D (2.5-4.9) mg/dl Magnesium 1.9 (1.7-2.4) mg/dl Total Bilirubin 0.6 (0.2-1.0) mg/dl AST 18 (13-39) U/L ALT 8 (7-52) U/L Alkaline Phosphatase 92 (34-104) U/L Total Protein 6.6 (6.0-8.3) gm/dl Albumin 3.6 (3.4-5.0) gm/dl Globulin 3.0 (2.5-4.0) gm/dl Albumin/Globulin Ratio 1.2 (0.9-2) PG Care Time/CCT Total # of Minutes Spent Total Time Spent with Patient: Total time spent is greater than 50% in coordination of care (as documented) at patient's floor/unit and/or counseling patient: Coding Level of Care Code 40794 Subseq Hosp Care Lvl 3 Diagnoses Encephalopathy G93.40 COVID-19 virus infection U07.1 A-fib I48.91 Atrial fibrillation type: unspecified Hypertension I10 Parkinson disease G20 Acute diverticulitis K57.92 Hypokalemia E87.6 Presence of cardiac pacemaker Z95.0 Presence of Watchman left atrial appendage closure device Z95.818 Elevated troponin I level R77.8 DVT prophylaxis Z29.9 GERD (gastroesophageal reflux disease) K21.9 Mood disorder F39 (1) A-fib Atrial fibrillation type: unspecified Qualified Code(s): I48.91 - Unspecified atrial fibrillation
[2021-09-30] MEDS: REMDESIVIR 100 MG in SODIUM CHLORIDE 0.9% 230 ML IV SCH (19:53)
[2021-09-30] MEDS: MIRTAZAPINE TAB 15 MG TAB PO SCH (20:35)
[2021-09-30] MEDS: SODIUM CHLORIDE 0.9% 10ML FLUSH IV SCH (20:55)
[2021-10-01] MEDS: NSS + 20MEQ KCL 20 MEQ/1,000 ML BAG IV SCH (01:14)
[2021-10-01 06:22] LABS: Hematocrit (blood only) 41.3 % (37-47); Hemoglobin 13.5 g/dL (12.0-16.0); Mean Corpuscular Hemoglobin 28.5 pg (25-34); Mean Corpuscular Hgb Conc 32.7 g/dL (32-36); Mean Corpuscular Volume 87.3 fL (80-100); Mean Platelet Volume 11.2 fL (7.4-10.4); Platelet Count 143 K/uL (130-400); RDW Coefficient of Variation 15.1 % (11.5-14.5); RDW Standard Deviation 48.9 fL (36.4-46.3); Red Blood Count 4.73 M/uL (4.2-5.4); White Blood Count 8.09 K/uL (4.8-10.8)
[2021-10-01 06:47] LABS: BUN Creatinine Ratio 26.4 (10-20); Calcium 8.1 mg/dl (8.5-10.1); Creatinine Clr Calc Pharmacy 48.6 ml/min; Est GFR (African American) 86.7 ml/min; Est GFR (Non-African American) 74.8 ml/min; Magnesium 1.8 mg/dl (1.7-2.4)
[2021-10-01] MEDS: amLODIPine BESYLATE 5 MG TAB PO SCH (08:31)
[2021-10-01] MEDS: guaiFENesin 600 MG TABCR PO SCH (08:32)
[2021-10-01] MEDS: ATORVASTATIN 10 MG TAB PO SCH (08:32)
[2021-10-01] MEDS: ASPIRIN 81 MG ECTAB PO SCH (08:32)
[2021-10-01] MEDS: GABAPENTIN 100 MG CAP PO SCH ×3 (08:32→20:14)
[2021-10-01] MEDS: PANTOprazole 40 MG TAB PO SCH (08:33)
[2021-10-01] MEDS: METOPROLOL SUCC 25MG EXT REL TAB PO SCH (08:33)
[2021-10-01] MEDS: CARBIDOPA/LEVODOPA 25/100MG EXT REL TAB PO SCH ×3 (08:34→15:06)
[2021-10-01] MEDS: PIPERACILLIN/TAZOBACTAM 3.375 GM in DEXTROSE 5% 100 ML IV SCH ×4 (08:55→23:00)
--- NOTE | 2021-10-01 13:58 | Hospitalist Progress Note ---
Date of Service October 01, 2021 Assessment & Plan (1) Encephalopathy: Plan: Patient presents with acute encephalopathy with a baseline history of memory impairment from her Parkinson's disease. Likely secondary to metabolic encephalopathy from acute COVID infection associate with fever and from acute diverticulitis. - Significantly improved overall - much more conversational, is out of bed and ambulating, oriented x3, and smiling at times. -> More tired for me today. Possibly waxes and wanes? Will monitor. (2) Acute diverticulitis: Plan: Acute sigmoid diverticulitis and TTP on exam, improved today with minimal tenderness to palpation and much improved appetite. - Continue Zosyn - Continue gentle maintenance IVFs - Pain control as needed (3) COVID-19 virus infection: Plan: With acute respiratory failure iwth hypoxia-now resolved after 1 to 2 days on 2 L nasal cannula. 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 Vaccinated: No Biggest issue was really poor appetite, not taking PO for at least 2 days. POx was< 94% and was requiring 2LNC --> started Dexamethasone and Remdesevir Now on room air as of 09/29. (4) A-fib: Plan: Patient remains in rate-controlled atrial fibrillation she is on metoprolol 25 she does not appear to be chronically anticoagulated due to Watchman device. - Last echocardiogram performed in 2020 shows preserved ejection fraction with moderate mitral regurgitation. (5) Hypertension: Plan: BP today is 150/70. - Continue metoprolol and amlodipine (6) Parkinson disease: Plan: Has resting tremor in arm and jaw. - Continue on Sinemet & mirtazapine (7) Presence of cardiac pacemaker: Plan: Noted (8) Presence of Watchman left atrial appendage closure device: Plan: Noted (9) Elevated troponin I level: Plan: mild elevation and trended back downward, no acute ischemia on ECG and no chest pain myocardial demand ischemia (10) GERD (gastroesophageal reflux disease): Plan: - Continue Protonix (11) DVT prophylaxis: Plan: Lovenox was initially ordered, but she refused. - Continue XU hose (12) Mood disorder: Plan: Unknown diagnosis. - Continue home mirtazapine - Also on gabapentin-unclear reason Admission and Anticipated Discharge Date Admission Date: September 27, 2021 Subjective Very tired today, but otherwise stable. Reports no fevers/chills, chest pain, shortness of breath, abdominal pain, nausea, or vomiting. Physical Exam Constitutional: WD/WN, vitals as above Eyes: EOM intact bilaterally; no conjunctival abnormality ENMT: external ear and nose normal, oropharynx normal Neck: trachea midline, no thyromegaly normal visual inspection Respiratory: normal respiratory effort, lungs clear to auscultation no respiratory distress Cardiovascular: Rate/Rhythm: regular rate and + irregularly irregular Gastrointestinal (Abdomen): Inspection/Auscultation: abdomen normal to inspection; abdomen not distended Musculoskeletal: no cyanosis or clubbing, extremities motor strength 5/5 Skin: no rashes, warm and dry Neurologic: moves all extremities and awake Psychiatric: Orientation: alert, oriented to person and cooperative Results & Data Results & Data ([facility]) Vital Signs (Past 12 Hours) Vital Signs Temp Pulse Pulse Resp BP BP Pulse Ox 10/01/21 11:43 36.4 C L 60 20 153/68 H 94 10/01/21 08:10 36.4 C L 60 20 117/74 93 10/01/21 07:38 60 10/01/21 03:44 36.2 C L 60 18 147/75 H 96 PG Care Time/CCT Total # of Minutes Spent Total Time Spent with Patient: Total time spent is greater than 50% in coordination of care (as documented) at patient's floor/unit and/or counseling patient: Coding Level of Care Code 81821 Subseq Hosp Care Lvl 3 Diagnoses Encephalopathy G93.40 COVID-19 virus infection U07.1 A-fib I48.91 Atrial fibrillation type: unspecified Hypertension I10 Parkinson disease G20 Acute diverticulitis K57.92 Presence of cardiac pacemaker Z95.0 Presence of Watchman left atrial appendage closure device Z95.818 Elevated troponin I level R77.8 GERD (gastroesophageal reflux disease) K21.9 DVT prophylaxis Z29.9 Mood disorder F39 (1) A-fib Atrial fibrillation type: unspecified Qualified Code(s): I48.91 - Unspecified atrial fibrillation
[2021-10-01] MEDS: MIRTAZAPINE TAB 15 MG TAB PO SCH (20:14)
[2021-10-01] MEDS: REMDESIVIR 100 MG in SODIUM CHLORIDE 0.9% 230 ML IV SCH (20:14)
[2021-10-01] MEDS: SODIUM CHLORIDE 0.9% 10ML FLUSH IV SCH (21:23)
[2021-10-02] MEDS: METOPROLOL SUCC 25MG EXT REL TAB PO SCH (08:30)
[2021-10-02] MEDS: CARBIDOPA/LEVODOPA 25/100MG EXT REL TAB PO SCH ×3 (08:30→15:46)
[2021-10-02] MEDS: GABAPENTIN 100 MG CAP PO SCH ×3 (08:31→20:19)
[2021-10-02] MEDS: amLODIPine BESYLATE 5 MG TAB PO SCH (08:31)
[2021-10-02] MEDS: ASPIRIN 81 MG ECTAB PO SCH (08:32)
[2021-10-02] MEDS: PANTOprazole 40 MG TAB PO SCH (08:32)
[2021-10-02] MEDS: ATORVASTATIN 10 MG TAB PO SCH (08:32)
[2021-10-02] MEDS: PIPERACILLIN/TAZOBACTAM 3.375 GM in DEXTROSE 5% 100 ML IV SCH ×3 (08:48→23:17)
--- NOTE | 2021-10-02 13:01 | Hospitalist Progress Note ---
Date of Service October 02, 2021 Assessment & Plan (1) Encephalopathy: Plan: Patient presents with acute encephalopathy with a baseline history of memory impairment from her Parkinson's disease. Likely secondary to metabolic encephalopathy from acute COVID infection associate with fever and from acute diverticulitis. - Significantly improved overall - much more conversational, is out of bed and ambulating, oriented x3, and smiling at times. - Still tired for me today, but is AAOx3. She knows year/month, location (even that we're at [facility]). However, she does not know why she's in the hospital. -> Not eating much in the last few days. Encouraged to eat, but she just goes back to sleep. Asked RN to please have aide help feed her and encourage PO intake. (2) Acute diverticulitis: Plan: Acute sigmoid diverticulitis and TTP on exam, improved today with minimal tenderness to palpation and much improved appetite. - Continue Zosyn (Abx end date would be 10/07/2021 for 10-day course) - Pain control as needed (3) COVID-19 virus infection: Plan: With acute respiratory failure iwth hypoxia-now resolved after 1 to 2 days on 2 L nasal cannula. 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 Vaccinated: No Biggest issue was really poor appetite, not taking PO for at least 2 days. POx was< 94% and was requiring 2LNC --> started Dexamethasone and Remdesevir Now on room air as of 09/29. (4) A-fib: Plan: Patient remains in rate-controlled atrial fibrillation she is on metoprolol 25 she does not appear to be chronically anticoagulated due to Watchman device. - Last echocardiogram performed in 2020 shows preserved ejection fraction with moderate mitral regurgitation. (5) Hypertension: Plan: BP today is 165/75. - Continue metoprolol and amlodipine (6) Parkinson disease: Plan: Has resting tremor in arm and jaw. - Continue on Sinemet & mirtazapine -> Due to ongoing fatigue, will lower home mirtazapine to 15 mg HS. (7) Presence of cardiac pacemaker: Plan: Noted (8) Presence of Watchman left atrial appendage closure device: Plan: Noted (9) Elevated troponin I level: Plan: Mild elevation and trended back downward, no acute ischemia on ECG and no chest pain. Myocardial demand ischemia. (10) GERD (gastroesophageal reflux disease): Plan: - Continue Protonix (11) Mood disorder: Plan: Unknown diagnosis. - Continue home mirtazapine (lower dose due to daytime somnolence) - Also on gabapentin - unclear reason (12) DVT prophylaxis: Plan: Lovenox was initially ordered, but she refused. - Continue XU alvarado Admission and Anticipated Discharge Date Admission Date: September 27, 2021 Subjective Very tired today, but otherwise stable. Is AAOx3 today. Reports no fevers/chills, chest pain, shortness of breath, abdominal pain, nausea, or vomiting. Physical Exam Constitutional: WD/WN, vitals as above Eyes: EOM intact bilaterally; no conjunctival abnormality ENMT: external ear and nose normal, oropharynx normal Neck: trachea midline, no thyromegaly normal visual inspection Respiratory: normal respiratory effort, lungs clear to auscultation no respiratory distress Cardiovascular: Rate/Rhythm: regular rate and + irregularly irregular Gastrointestinal (Abdomen): Inspection/Auscultation: abdomen normal to inspection; abdomen not distended Musculoskeletal: no cyanosis or clubbing, extremities motor strength 5/5 Skin: no rashes, warm and dry Neurologic: moves all extremities and awake Psychiatric: Orientation: alert, oriented to person and cooperative Results & Data Results & Data ([facility]) Vital Signs (Past 12 Hours) Vital Signs Temp Pulse Pulse Resp BP Pulse Ox 10/02/21 11:19 37.3 C 60 20 164/76 H 95 10/02/21 08:00 60 10/02/21 07:21 36.5 C 60 20 176/67 H 95 10/02/21 04:00 36.0 C L 61 18 171/77 H 97 PG Care Time/CCT Total # of Minutes Spent Total Time Spent with Patient: Total time spent is greater than 50% in coordination of care (as documented) at patient's floor/unit and/or counseling patient: Coding Level of Care Code 65507 Subseq Hosp Care Lvl 2 Diagnoses Encephalopathy G93.40 Acute diverticulitis K57.92 COVID-19 virus infection U07.1 A-fib I48.91 Atrial fibrillation type: unspecified Hypertension I10 Parkinson disease G20 Presence of cardiac pacemaker Z95.0 Presence of Watchman left atrial appendage closure device Z95.818 Elevated troponin I level R77.8 GERD (gastroesophageal reflux disease) K21.9 DVT prophylaxis Z29.9 Mood disorder F39 (1) A-fib Atrial fibrillation type: unspecified Qualified Code(s): I48.91 - Unspecified atrial fibrillation
[2021-10-02] MEDS: REMDESIVIR 100 MG in SODIUM CHLORIDE 0.9% 230 ML IV SCH (20:15)
[2021-10-02] MEDS: MIRTAZAPINE TAB 15 MG TAB PO SCH (20:18)
[2021-10-02] MEDS: SODIUM CHLORIDE 0.9% 10ML FLUSH IV SCH (21:22)
[2021-10-03 06:14] LABS: Hematocrit (blood only) 44.5 % (37-47); Hemoglobin 14.6 g/dL (12.0-16.0); Mean Corpuscular Hemoglobin 28.3 pg (25-34); Mean Corpuscular Hgb Conc 32.8 g/dL (32-36); Mean Corpuscular Volume 86.4 fL (80-100); Mean Platelet Volume 11.1 fL (7.4-10.4); Platelet Count 162 K/uL (130-400); RDW Coefficient of Variation 14.9 % (11.5-14.5); RDW Standard Deviation 47.7 fL (36.4-46.3); Red Blood Count 5.15 M/uL (4.2-5.4); White Blood Count 9.69 K/uL (4.8-10.8)
[2021-10-03 06:35] LABS: BUN Creatinine Ratio 21.8 (10-20); Calcium 8.1 mg/dl (8.5-10.1); Creatinine Clr Calc Pharmacy 43.8 ml/min; Est GFR (African American) 78.7 ml/min; Est GFR (Non-African American) 67.9 ml/min; Magnesium 1.7 mg/dl (1.7-2.4)
[2021-10-03] MEDS: CARBIDOPA/LEVODOPA 25/100MG EXT REL TAB PO SCH ×3 (08:06→16:26)
[2021-10-03] MEDS: PIPERACILLIN/TAZOBACTAM 3.375 GM in DEXTROSE 5% 100 ML IV SCH ×3 (08:12→23:05)
[2021-10-03] MEDS: amLODIPine BESYLATE 5 MG TAB PO SCH (08:13)
[2021-10-03] MEDS: GABAPENTIN 100 MG CAP PO SCH ×3 (08:14→21:07)
[2021-10-03] MEDS: METOPROLOL SUCC 25MG EXT REL TAB PO SCH (08:14)
[2021-10-03] MEDS: PANTOprazole 40 MG TAB PO SCH (08:14)
[2021-10-03] MEDS: ATORVASTATIN 10 MG TAB PO SCH (08:15)
[2021-10-03] MEDS: ASPIRIN 81 MG ECTAB PO SCH (08:16)
[2021-10-03 11:19] LABS: C Reactive Protein 1.09 mg/dl (0-0.5)
--- NOTE | 2021-10-03 11:23 | Hospitalist Progress Note ---
Date of Service October 03, 2021 Assessment & Plan (1) Encephalopathy: Plan: Patient presents with acute encephalopathy with a baseline history of memory impairment from her Parkinson's disease. Likely secondary to metabolic encephalopathy from acute COVID infection associate with fever and from acute diverticulitis. - Significantly improved overall - much more conversational, is out of bed and ambulating, oriented x3, and smiling at times. - Tired for me today, but is AAOx3. She knows year/month, location (even that we're at [facility]). However, she does not know why she's in the hospital. -> Still not eating much in the last few days. Touched base again with RN and also called PT to try to get her in a chair to help her wake up and eat. (2) Acute diverticulitis: Plan: Acute sigmoid diverticulitis and TTP on exam, improved today with minimal tenderness to palpation and much improved appetite. - Continue Zosyn (Abx end date would be 10/07/2021 for 10-day course) - Pain control as needed (3) COVID-19 virus infection: Plan: With acute respiratory failure iwth hypoxia-now resolved after 1 to 2 days on 2 L nasal cannula. Was feeling ill for 5 days [employer]. First tested positive in our system 09/27/2021. Vaccinated: No Biggest issue was really poor appetite, not taking PO for at least 2 days. POx was< 94% and was requiring 2LNC --> started Dexamethasone and remdesivir Now on room air as of 09/29. Stopped both remdesivir and dexamethasone. (4) A-fib: Plan: Patient remains in rate-controlled atrial fibrillation she is on metoprolol 25 she does not appear to be chronically anticoagulated due to Watchman device. - Last echocardiogram performed in 2020 shows preserved ejection fraction with moderate mitral regurgitation. (5) Hypertension: Plan: BP today is 130/65. - Continue metoprolol and amlodipine (6) Parkinson disease: Plan: Has resting tremor in arm and jaw. - Continue on Sinemet & mirtazapine -> Due to ongoing fatigue, lowered her home mirtazapine to 15 mg HS on 10/02. (7) Presence of cardiac pacemaker: Plan: Noted (8) Presence of Watchman left atrial appendage closure device: Plan: Noted (9) Elevated troponin I level: Plan: Mild elevation and trended back downward, no acute ischemia on ECG and no chest pain. Myocardial demand ischemia. (10) GERD (gastroesophageal reflux disease): Plan: - Continue Protonix (11) Mood disorder: Plan: Unknown diagnosis. - Continue home mirtazapine (lower dose due to daytime somnolence) - Also on gabapentin - unclear reason -> Will lower frequency as well. (12) DVT prophylaxis: Plan: Lovenox was initially ordered, but she refused. - Continue XU alvarado Admission and Anticipated Discharge Date Admission Date: September 27, 2021 Subjective Stable today. Still mostly sleeping, but wakes up easily. Is AAOx3 today. No appetite. Reports no fevers/chills, chest pain, shortness of breath, abdominal pain, nausea, or vomiting. Physical Exam Constitutional: WD/WN, vitals as above Eyes: EOM intact bilaterally; no conjunctival abnormality ENMT: external ear and nose normal, oropharynx normal Neck: trachea midline, no thyromegaly normal visual inspection Respiratory: normal respiratory effort, lungs clear to auscultation no respiratory distress Cardiovascular: Rate/Rhythm: regular rate and regular rhythm Gastrointestinal (Abdomen): Inspection/Auscultation: abdomen normal to inspection; abdomen not distended Musculoskeletal: no cyanosis or clubbing, extremities motor strength 5/5 Skin: no rashes, warm and dry Neurologic: moves all extremities and awake Psychiatric: Orientation: alert, oriented to person and cooperative Results & Data Results & Data ([facility]) Vital Signs (Past 12 Hours) Vital Signs Temp Pulse Pulse Resp BP BP Pulse Ox 10/03/21 07:55 36.7 C 18 L 18 129/65 96 10/03/21 06:20 60 10/03/21 03:18 36.7 C 61 16 111/56 L 95 PG Care Time/CCT Total # of Minutes Spent Total Time Spent with Patient: Total time spent is greater than 50% in coordination of care (as documented) at patient's floor/unit and/or counseling patient: Coding Level of Care Code 23138 Subseq Hosp Care Lvl 2 Diagnoses Encephalopathy G93.40 Acute diverticulitis K57.92 COVID-19 virus infection U07.1 A-fib I48.91 Atrial fibrillation type: unspecified Hypertension I10 Parkinson disease G20 Presence of cardiac pacemaker Z95.0 Presence of Watchman left atrial appendage closure device Z95.818 Elevated troponin I level R77.8 GERD (gastroesophageal reflux disease) K21.9 Mood disorder F39 DVT prophylaxis Z29.9 (1) A-fib Atrial fibrillation type: unspecified Qualified Code(s): I48.91 - Unspecified atrial fibrillation
[2021-10-03 11:34] LABS: C Reactive Protein 1.45 mg/dl (0-0.5)
[2021-10-03] MEDS: POTASSIUM CHLORIDE 20 MEQ/15 ML UDC PO SCH ×3 (11:59→21:07)
[2021-10-03] MEDS ORDERED: POTASSIUM CHLORIDE 40 MEQ in SODIUM CHLORIDE 0.9% 1000ML 1,000 ML IV SCH (14:30)
[2021-10-03] MEDS ORDERED: GABAPENTIN 100 MG CAP PO SCH (21:00)
[2021-10-03] MEDS: MIRTAZAPINE TAB 15 MG TAB PO SCH ×2 (21:04→21:07)
[2021-10-04 07:11] LABS: BUN Creatinine Ratio 17.9 (10-20); Calcium 8.2 mg/dl (8.5-10.1); Creatinine Clr Calc Pharmacy 40.6 ml/min; Est GFR (African American) 71.9 ml/min; Est GFR (Non-African American) 62.1 ml/min; Potassium 4.1 mmol/L (3.5-5.1)
[2021-10-04] MEDS: PIPERACILLIN/TAZOBACTAM 3.375 GM in DEXTROSE 5% 100 ML IV SCH ×2 (07:52→16:58)
[2021-10-04] MEDS: CARBIDOPA/LEVODOPA 25/100MG EXT REL TAB PO SCH ×3 (08:05→16:59)
[2021-10-04] MEDS: amLODIPine BESYLATE 5 MG TAB PO SCH (08:06)
[2021-10-04] MEDS: ASPIRIN 81 MG ECTAB PO SCH (08:07)
[2021-10-04] MEDS: ATORVASTATIN 10 MG TAB PO SCH (08:07)
[2021-10-04] MEDS: METOPROLOL SUCC 25MG EXT REL TAB PO SCH (08:08)
[2021-10-04] MEDS: PANTOprazole 40 MG TAB PO SCH (08:10)
--- NOTE | 2021-10-04 12:12 | Hospitalist Progress Note ---
Date of Service October 04, 2021 Assessment & Plan (1) Encephalopathy: Plan: Patient presents with acute encephalopathy with a baseline history of memory impairment from her Parkinson's disease. Likely secondary to metabolic encephalopathy from acute COVID infection associate with fever and from acute diverticulitis. - Significantly improved on Sunday (09/30) - much more conversational, is out of bed and ambulating, oriented x3, and smiling at times. - For me, she was sleepy on Sat/Sun. Today she is awake and alert, but still refuses to eat. No pain or nausea, just reports loss of appetite. I tried to offer other foods or to have her niece bring in food, but she says no to these options. (2) Acute diverticulitis: Plan: Acute sigmoid diverticulitis and TTP on exam, improved today with minimal tenderness to palpation and much improved appetite. - Continue Zosyn (Abx end date would be 10/07/2021 for 10-day course) - Pain control as needed -> None needed. (3) COVID-19 virus infection: Plan: With acute respiratory failure iwth hypoxia-now resolved after 1 to 2 days on 2 L nasal cannula. Was feeling ill for 5 days [employer]ET [employer]. First tested positive in our system 09/27/2021. Vaccinated: No Biggest issue was really poor appetite, not taking PO for at least 2 days. POx was< 94% and was requiring 2LNC --> started Dexamethasone and remdesivir Now on room air as of 09/29. Stopped both remdesivir and dexamethasone. (4) A-fib: Plan: Patient remains in rate-controlled atrial fibrillation she is on metoprolol 25 she does not appear to be chronically anticoagulated due to Watchman device. - Last echocardiogram performed in 2020 shows preserved ejection fraction with moderate mitral regurgitation. (5) Hypertension: Plan: BP today is 160/80. - Continue metoprolol and amlodipine (6) Parkinson disease: Plan: Has resting tremor in arm and jaw. - Continue on Sinemet & mirtazapine -> Due to ongoing fatigue, lowered her home mirtazapine to 15 mg HS on 10/02. (7) Presence of cardiac pacemaker: Plan: Noted (8) Presence of Watchman left atrial appendage closure device: Plan: Noted (9) Elevated troponin I level: Plan: Mild elevation and trended back downward, no acute ischemia on ECG and no chest pain. Myocardial demand ischemia. (10) GERD (gastroesophageal reflux disease): Plan: - Continue Protonix (11) Mood disorder: Plan: Unknown diagnosis. - Continue home mirtazapine (lower dose due to daytime somnolence) - Also on gabapentin - unclear reason -> Lowered frequency as well to HS as she had a lot of daytime somnolence from 10/01 - 10/03. (12) DVT prophylaxis: Plan: Lovenox was initially ordered, but she refused. - Continue XU alvarado Admission and Anticipated Discharge Date Admission Date: September 27, 2021 Subjective Better today. Is awake and has breakfast in front of her on my arrival. However, still says she doesn't want to eat. No appetite. But denies nausea or stomach pain. Reports no fevers/chills, chest pain, shortness of breath, abdominal pain, nausea, or vomiting. Physical Exam Constitutional: WD/WN, vitals as above Eyes: EOM intact bilaterally; no conjunctival abnormality ENMT: external ear and nose normal, oropharynx normal Neck: trachea midline, no thyromegaly normal visual inspection Respiratory: normal respiratory effort, lungs clear to auscultation no respiratory distress Cardiovascular: Rate/Rhythm: regular rate and regular rhythm Gastrointestinal (Abdomen): Inspection/Auscultation: abdomen normal to inspection; abdomen not distended Musculoskeletal: no cyanosis or clubbing, extremities motor strength 5/5 Skin: no rashes, warm and dry Neurologic: moves all extremities and awake Psychiatric: Orientation: alert, oriented to person and cooperative Results & Data Results & Data ([facility]) Vital Signs (Past 12 Hours) Vital Signs Temp Pulse Resp BP Pulse Ox 10/04/21 11:36 36.8 C 63 18 158/78 H 96 10/04/21 08:11 36.9 C 66 18 172/82 H 92 10/04/21 03:41 36.9 C 60 18 138/69 94 PG Care Time/CCT Total # of Minutes Spent Total Time Spent with Patient: Total time spent is greater than 50% in coordination of care (as documented) at patient's floor/unit and/or counseling patient: Coding Level of Care Code 82287 Subseq Hosp Care Lvl 2 Diagnoses Encephalopathy G93.40 Acute diverticulitis K57.92 COVID-19 virus infection U07.1 A-fib I48.91 Atrial fibrillation type: unspecified Hypertension I10 Parkinson disease G20 Presence of cardiac pacemaker Z95.0 Presence of Watchman left atrial appendage closure device Z95.818 Elevated troponin I level R77.8 GERD (gastroesophageal reflux disease) K21.9 Mood disorder F39 DVT prophylaxis Z29.9 (1) A-fib Atrial fibrillation type: unspecified Qualified Code(s): I48.91 - Unspecified atrial fibrillation
[2021-10-04] MEDS ORDERED: amLODIPine BESYLATE 5 MG TAB PO ONE (20:30)
[2021-10-04] MEDS: GABAPENTIN 100 MG CAP PO SCH (20:32)
[2021-10-04] MEDS: MIRTAZAPINE TAB 15 MG TAB PO SCH (20:32)
[2021-10-05] MEDS: PIPERACILLIN/TAZOBACTAM 3.375 GM in DEXTROSE 5% 100 ML IV SCH ×3 (00:19→16:06)
[2021-10-05] MEDS: METOPROLOL SUCC 25MG EXT REL TAB PO SCH (08:02)
[2021-10-05] MEDS: CARBIDOPA/LEVODOPA 25/100MG EXT REL TAB PO SCH ×4 (08:03→16:15)
[2021-10-05] MEDS: ATORVASTATIN 10 MG TAB PO SCH (09:00)
[2021-10-05] MEDS: PANTOprazole 40 MG TAB PO SCH (09:00)
[2021-10-05] MEDS: amLODIPine BESYLATE 5 MG TAB PO SCH (09:00)
[2021-10-05] MEDS: ASPIRIN 81 MG ECTAB PO SCH (10:46)
--- NOTE | 2021-10-05 11:10 | Hospitalist Progress Note ---
Date of Service October 05, 2021 Assessment & Plan (1) Encephalopathy: Plan: Patient presents with acute encephalopathy with a baseline history of memory impairment from her Parkinson's disease. Likely secondary to metabolic encephalopathy from acute COVID infection associate with fever and from acute diverticulitis. - Significantly improved on Sunday (09/30) - much more conversational, is out of bed and ambulating, oriented x3, and smiling at times. - For me, she was sleepy on Sat/Sun. On Sunday, she was awake and alert, but still refused to eat. No pain or nausea, just reports loss of appetite. I tried to offer other foods or to have her niece bring in food, but she says no to these options. - Today, she is again curled up and only says "No" to all questions. Does not want food. (2) Acute diverticulitis: Plan: Acute sigmoid diverticulitis and TTP on exam, improved today with minimal tenderness to palpation and much improved appetite. - Continue Zosyn (Abx end date would be 10/07/2021 for 10-day course) -> Will stop early given complete resolution of pain and possibility that it is affecting her appetite. - Pain control as needed -> None needed. (3) COVID-19 virus infection: Plan: With acute respiratory failure iwth hypoxia-now resolved after 1 to 2 days on 2 L nasal cannula. Was feeling ill for 5 days [employer]. First tested positive in our system 09/27/2021. Vaccinated: No Biggest issue was really poor appetite, not taking PO for at least 2 days. POx was< 94% and was requiring 2LNC --> started Dexamethasone and remdesivir Now on room air as of 09/29. Stopped both remdesivir and dexamethasone. (4) A-fib: Plan: Patient remains in rate-controlled atrial fibrillation she is on metoprolol 25 she does not appear to be chronically anticoagulated due to Watchman device. - Last echocardiogram performed in 2020 shows preserved ejection fraction with moderate mitral regurgitation. (5) Hypertension: Plan: BP today is 160/65. - Continue metoprolol and amlodipine (6) Parkinson disease: Plan: Has resting tremor in arm and jaw. - Continue on Sinemet & mirtazapine -> Due to ongoing fatigue, lowered her home mirtazapine to 15 mg HS on 10/02. (7) Presence of cardiac pacemaker: Plan: Noted (8) Presence of Watchman left atrial appendage closure device: Plan: Noted (9) Elevated troponin I level: Plan: Mild elevation and trended back downward, no acute ischemia on ECG and no chest pain. Myocardial demand ischemia. (10) GERD (gastroesophageal reflux disease): Plan: - Continue Protonix (11) Mood disorder: Plan: Unknown diagnosis. - Continue home mirtazapine (lower dose due to daytime somnolence) - Also on gabapentin - unclear reason -> Lowered frequency as well to HS as she had a lot of daytime somnolence from 10/01 - 10/03. Stopped on 10/05. (12) DVT prophylaxis: Plan: Lovenox was initially ordered, but she refused. - Continue XU alvarado Admission and Anticipated Discharge Date Admission Date: September 27, 2021 Subjective Reports no fevers/chills, chest pain, shortness of breath, abdominal pain, nausea, or vomiting, but also doesn't really participate. Per RN, she spat out some of the boost shake that the RN gave her. Physical Exam Constitutional: WD/WN, vitals as above Eyes: EOM intact bilaterally; no conjunctival abnormality ENMT: external ear and nose normal, oropharynx normal Neck: trachea midline, no thyromegaly normal visual inspection Respiratory: normal respiratory effort, lungs clear to auscultation no respiratory distress Cardiovascular: Rate/Rhythm: regular rate and regular rhythm Gastrointestinal (Abdomen): Inspection/Auscultation: abdomen normal to inspection; abdomen not distended Musculoskeletal: no cyanosis or clubbing, extremities motor strength 5/5 Skin: no rashes, warm and dry Neurologic: moves all extremities and awake Psychiatric: Orientation: alert, oriented to person and cooperative Results & Data Results & Data ([facility]) Vital Signs (Past 12 Hours) Vital Signs Temp Pulse Pulse Resp BP BP Pulse Ox 10/05/21 07:50 62 10/05/21 07:25 36.4 C L 65 14 161/65 H 94 10/05/21 03:35 36.9 C 73 18 137/68 95 PG Care Time/CCT Total # of Minutes Spent Total Time Spent with Patient: Total time spent is greater than 50% in coordination of care (as documented) at patient's floor/unit and/or counseling patient: Coding Level of Care Code 60324 Subseq Hosp Care Lvl 2 Diagnoses Encephalopathy G93.40 Acute diverticulitis K57.92 COVID-19 virus infection U07.1 A-fib I48.91 Atrial fibrillation type: unspecified Hypertension I10 Parkinson disease G20 Presence of cardiac pacemaker Z95.0 Presence of Watchman left atrial appendage closure device Z95.818 Elevated troponin I level R77.8 GERD (gastroesophageal reflux disease) K21.9 Mood disorder F39 DVT prophylaxis Z29.9 (1) A-fib Atrial fibrillation type: unspecified Qualified Code(s): I48.91 - Unspecified atrial fibrillation
[2021-10-05] MEDS: MIRTAZAPINE TAB 15 MG TAB PO SCH (20:22)
[2021-10-06 07:17] LABS: Hematocrit (blood only) 47.7 % (37-47); Hemoglobin 15.6 g/dL (12.0-16.0); Mean Corpuscular Hemoglobin 28.3 pg (25-34); Mean Corpuscular Hgb Conc 32.7 g/dL (32-36); Mean Corpuscular Volume 86.4 fL (80-100); Mean Platelet Volume 11.2 fL (7.4-10.4); Platelet Count 237 K/uL (130-400); RDW Coefficient of Variation 14.9 % (11.5-14.5); RDW Standard Deviation 47.4 fL (36.4-46.3); Red Blood Count 5.52 M/uL (4.2-5.4); White Blood Count 7.28 K/uL (4.8-10.8)
[2021-10-06 07:37] LABS: BUN Creatinine Ratio 21.9 (10-20); Calcium 8.7 mg/dl (8.5-10.1); Creatinine Clr Calc Pharmacy 44.3 ml/min; Est GFR (African American) 85.2 ml/min; Est GFR (Non-African American) 73.5 ml/min; Potassium 3.7 mmol/L (3.5-5.1)
[2021-10-06] MEDS: ATORVASTATIN 10 MG TAB PO SCH (09:09)
[2021-10-06] MEDS: amLODIPine BESYLATE 5 MG TAB PO SCH (09:09)
[2021-10-06] MEDS: ASPIRIN 81 MG ECTAB PO SCH (09:09)
[2021-10-06] MEDS: CARBIDOPA/LEVODOPA 25/100MG EXT REL TAB PO SCH ×3 (09:09→16:13)
[2021-10-06] MEDS: METOPROLOL SUCC 25MG EXT REL TAB PO SCH (09:09)
[2021-10-06] MEDS: PANTOprazole 40 MG TAB PO SCH (09:09)
--- NOTE | 2021-10-06 12:01 | Hospitalist Progress Note ---
Date of Service October 06, 2021 Assessment & Plan (1) Encephalopathy: Plan: Patient presents with acute encephalopathy with a baseline history of memory impairment from her Parkinson's disease. Likely secondary to metabolic encephalopathy from acute COVID infection associate with fever and from acute diverticulitis. - Significantly improved on Sunday (09/30) - much more conversational, is out of bed and ambulating, oriented x3, and smiling at times. - For me, she was sleepy on Sat/Sun. On Sunday, she was awake and alert, but still refused to eat. No pain or nausea, just reports loss of appetite. I tried to offer other foods or to have her niece bring in food, but she says no to these options. - Today, she is again curled up and only says "No" to all questions. Does not want food. Does not feel her spirits are low. (2) Acute diverticulitis: Plan: Acute sigmoid diverticulitis and TTP on exam, improved today with minimal tenderness to palpation and much improved appetite. - Continue Zosyn (Abx end date would be 10/07/2021 for 10-day course) -> Will stop early given complete resolution of pain and possibility that it is affecting her appetite. - Pain control as needed -> None needed. (3) COVID-19 virus infection: Plan: With acute respiratory failure iwth hypoxia-now resolved after 1 to 2 days on 2 L nasal cannula. 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 First tested positive in our system 09/27/2021. Vaccinated: No Biggest issue was really poor appetite, not taking PO for at least 2 days. POx was< 94% and was requiring 2LNC --> started Dexamethasone and remdesivir Now on room air as of 09/29. Stopped both remdesivir and dexamethasone. (4) A-fib: Plan: Patient remains in rate-controlled atrial fibrillation she is on metoprolol 25 she does not appear to be chronically anticoagulated due to Watchman device. - Last echocardiogram performed in 2020 shows preserved ejection fraction with moderate mitral regurgitation. (5) Hypertension: Plan: BP today is 160/65. - Continue metoprolol and amlodipine (6) Parkinson disease: Plan: Has resting tremor in arm and jaw. - Continue on Sinemet & mirtazapine -> Due to ongoing fatigue, lowered her home mirtazapine to 15 mg HS on 10/02. (7) Presence of cardiac pacemaker: Plan: Noted (8) Presence of Watchman left atrial appendage closure device: Plan: Noted (9) Elevated troponin I level: Plan: Mild elevation and trended back downward, no acute ischemia on ECG and no chest pain. Myocardial demand ischemia. (10) GERD (gastroesophageal reflux disease): Plan: - Continue Protonix (11) Mood disorder: Plan: Unknown diagnosis. - Continue home mirtazapine (lower dose due to daytime somnolence) - Also on gabapentin - unclear reason -> Lowered frequency as well to HS as she had a lot of daytime somnolence from 10/01 - 10/03. Stopped on 10/05. (12) DVT prophylaxis: Plan: Lovenox was initially ordered, but she refused. - Continue XU alvarado Admission and Anticipated Discharge Date Admission Date: September 27, 2021 Subjective Reports no fevers/chills, chest pain, shortness of breath, abdominal pain, nausea, or vomiting, but also doesn't really participate. No change today. Very short responses. Physical Exam Constitutional: WD/WN, vitals as above Eyes: EOM intact bilaterally; no conjunctival abnormality ENMT: external ear and nose normal, oropharynx normal Neck: trachea midline, no thyromegaly normal visual inspection Respiratory: normal respiratory effort, lungs clear to auscultation no respiratory distress Cardiovascular: Rate/Rhythm: regular rate and regular rhythm Gastrointestinal (Abdomen): Inspection/Auscultation: abdomen normal to inspection; abdomen not distended Musculoskeletal: no cyanosis or clubbing, extremities motor strength 5/5 Skin: no rashes, warm and dry Neurologic: moves all extremities and awake Psychiatric: Orientation: alert, oriented to person and cooperative Results & Data Results & Data ([facility]) Vital Signs (Past 12 Hours) Vital Signs Temp Pulse Resp BP BP Pulse Ox 10/06/21 11:22 36.4 C L 84 20 163/83 H 98 10/06/21 08:14 36.7 C 74 20 126/62 94 10/06/21 03:44 36.6 C 84 18 123/70 96 PG Care Time/CCT Total # of Minutes Spent Total Time Spent with Patient: Total time spent is greater than 50% in coordination of care (as documented) at patient's floor/unit and/or counseling patient: Coding Level of Care Code 98682 Subseq Hosp Care Lvl 1 Diagnoses Encephalopathy G93.40 Acute diverticulitis K57.92 COVID-19 virus infection U07.1 A-fib I48.91 Atrial fibrillation type: unspecified Hypertension I10 Parkinson disease G20 Presence of cardiac pacemaker Z95.0 Presence of Watchman left atrial appendage closure device Z95.818 Elevated troponin I level R77.8 GERD (gastroesophageal reflux disease) K21.9 Mood disorder F39 DVT prophylaxis Z29.9 (1) A-fib Atrial fibrillation type: unspecified Qualified Code(s): I48.91 - Unspecified atrial fibrillation
[2021-10-06] MEDS: MIRTAZAPINE TAB 15 MG TAB PO SCH (21:04)
[2021-10-07] MEDS: amLODIPine BESYLATE 5 MG TAB PO SCH (08:52)
[2021-10-07] MEDS: ATORVASTATIN 10 MG TAB PO SCH (08:52)
[2021-10-07] MEDS: METOPROLOL SUCC 25MG EXT REL TAB PO SCH (08:52)
[2021-10-07] MEDS: ASPIRIN 81 MG ECTAB PO SCH (08:52)
[2021-10-07] MEDS: PANTOprazole 40 MG TAB PO SCH (08:52)
[2021-10-07] MEDS: CARBIDOPA/LEVODOPA 25/100MG EXT REL TAB PO SCH ×3 (08:52→15:21)
--- NOTE | 2021-10-07 15:57 | Hospitalist Progress Note ---
Date of Service October 07, 2021 Assessment & Plan (1) Encephalopathy: Plan: Patient presents with acute encephalopathy with a baseline history of memory impairment from her Parkinson's disease. Likely secondary to metabolic encephalopathy from acute COVID infection associate with fever and from acute diverticulitis. - Significantly improved on Sunday (09/30) - much more conversational, is out of bed and ambulating, oriented x3, and smiling at times. - For me, she was sleepy on Sat/Sun. On Sunday, she was awake and alert, but still refused to eat. No pain or nausea, just reports loss of appetite. I tried to offer other foods or to have her niece bring in food, but she says no to these options. - Today, she is more awake, but still does not want food. Does not feel her spirits are low. (2) Acute diverticulitis: Plan: Acute sigmoid diverticulitis and TTP on exam, improved today with minimal tenderness to palpation and much improved appetite. - Continue Zosyn (Abx end date would be 10/07/2021 for 10-day course) -> Stopped early on 10/05 given complete resolution of pain and possibility that it is affecting her appetite. - Pain control as needed -> None needed. (3) COVID-19 virus infection: Plan: With acute respiratory failure iwth hypoxia-now resolved after 1 to 2 days on 2 L nasal cannula. 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 Vaccinated: No Biggest issue was really poor appetite, not taking PO for at least 2 days. POx was< 94% and was requiring 2LNC --> started Dexamethasone and remdesivir Now on room air as of 09/29. Stopped both remdesivir and dexamethasone. (4) A-fib: Plan: Patient remains in rate-controlled atrial fibrillation she is on metoprolol 25 she does not appear to be chronically anticoagulated due to Watchman device. - Last echocardiogram performed in 2020 shows preserved ejection fraction with moderate mitral regurgitation. (5) Hypertension: Plan: BP today is 150/75. - Continue metoprolol and amlodipine (6) Parkinson disease: Plan: Has resting tremor in arm and jaw. - Continue on Sinemet & mirtazapine -> Due to ongoing fatigue, lowered her home mirtazapine to 15 mg HS on 10/02. (7) Presence of cardiac pacemaker: Plan: Noted (8) Presence of Watchman left atrial appendage closure device: Plan: Noted (9) Elevated troponin I level: Plan: Mild elevation and trended back downward, no acute ischemia on ECG and no chest pain. Myocardial demand ischemia. (10) GERD (gastroesophageal reflux disease): Plan: - Continue Protonix (11) Mood disorder: Plan: Unknown diagnosis. - Continue home mirtazapine (lower dose due to daytime somnolence) - Also on gabapentin - unclear reason -> Lowered frequency as well to HS as she had a lot of daytime somnolence from 10/01 - 10/03. Stopped on 10/05. (12) DVT prophylaxis: Plan: Lovenox was initially ordered, but she refused. - Continue XU alvarado Admission and Anticipated Discharge Date Admission Date: September 27, 2021 Subjective Doing well overall this morning. Reports no fevers/chills, chest pain, shortness of breath, abdominal pain, nausea, or vomiting. But still does not want to eat anything. Physical Exam Constitutional: WD/WN, vitals as above Eyes: EOM intact bilaterally; no conjunctival abnormality ENMT: external ear and nose normal, oropharynx normal Neck: trachea midline, no thyromegaly normal visual inspection Respiratory: normal respiratory effort, lungs clear to auscultation no respiratory distress Cardiovascular: Rate/Rhythm: regular rate and regular rhythm Gastrointestinal (Abdomen): Inspection/Auscultation: abdomen normal to inspection; abdomen not distended Musculoskeletal: no cyanosis or clubbing, extremities motor strength 5/5 Skin: no rashes, warm and dry Neurologic: moves all extremities and awake Psychiatric: Orientation: alert, oriented to person and cooperative Results & Data Results & Data ([facility]) Vital Signs (Past 12 Hours) Vital Signs Temp Pulse Pulse Resp BP Pulse Ox Pulse Ox 10/07/21 15:01 36.7 C 80 20 147/73 H 96 10/07/21 11:06 36.4 C L 96 H 20 137/79 95 10/07/21 11:00 94 10/07/21 10:30 67 10/07/21 08:02 63 10/07/21 07:59 36.4 C L 74 18 157/52 H 93 10/07/21 04:00 36.5 C 61 18 142/61 H 96 PG Care Time/CCT Total # of Minutes Spent Total Time Spent with Patient: Total time spent is greater than 50% in coordination of care (as documented) at patient's floor/unit and/or counseling patient: Coding Level of Care Code 46564 Subseq Hosp Care Lvl 1 Diagnoses Encephalopathy G93.40 Acute diverticulitis K57.92 COVID-19 virus infection U07.1 A-fib I48.91 Atrial fibrillation type: unspecified Hypertension I10 Parkinson disease G20 Presence of cardiac pacemaker Z95.0 Presence of Watchman left atrial appendage closure device Z95.818 Elevated troponin I level R77.8 GERD (gastroesophageal reflux disease) K21.9 Mood disorder F39 DVT prophylaxis Z29.9 (1) A-fib Atrial fibrillation type: unspecified Qualified Code(s): I48.91 - Unspecified atrial fibrillation
[2021-10-07] MEDS: MIRTAZAPINE TAB 15 MG TAB PO SCH (20:56)
[2021-10-08] MEDS: PANTOprazole 40 MG TAB PO SCH (07:04)
[2021-10-08] MEDS: ATORVASTATIN 10 MG TAB PO SCH (07:04)
[2021-10-08] MEDS: ASPIRIN 81 MG ECTAB PO SCH (07:04)
[2021-10-08] MEDS: amLODIPine BESYLATE 5 MG TAB PO SCH (07:04)
[2021-10-08] MEDS: CARBIDOPA/LEVODOPA 25/100MG EXT REL TAB PO SCH ×3 (07:04→14:04)
[2021-10-08] MEDS: METOPROLOL SUCC 25MG EXT REL TAB PO SCH (07:04)
--- NOTE | 2021-10-08 14:48 | Hospitalist Progress Note ---
Date of Service October 08, 2021 Assessment & Plan (1) Encephalopathy: Plan: Patient presents with acute encephalopathy with a baseline history of memory impairment from her Parkinson's disease. Likely secondary to metabolic encephalopathy from acute COVID infection associate with fever and from acute diverticulitis. - Significantly improved on Sunday (09/30) - much more conversational, is out of bed and ambulating, oriented x3, and smiling at times. -since then, she has been awake and alert, but still refusing to eat. No pain or nausea, just reports loss of appetite. I tried to offer other foods or to have her niece bring in food, but she says no to these options. -Today still does not want food. Wants to get out of the hospital (2) Acute diverticulitis: Plan: Acute sigmoid diverticulitis and TTP on exam, improved now with minimal tenderness to palpation - completed course of Zosyn for 10-day course -continue low fiber diet for now having diarrhea--> check C. diff star FLorastor give imodium prn diarrhea if C. diff negative (3) COVID-19 virus infection: Plan: With acute respiratory failure iwth hypoxia-now resolved after 1 to 2 days on 2 L nasal cannula. 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 Vaccinated: No Biggest issue is really poor appetite, not taking PO much at all as above POx was< 94% and was requiring 2LNC --> started Dexamethasone and remdesivir Now on room air as of 09/29. Stopped both remdesivir and dexamethasone. Has no cough, no respiratory symptoms, no fevers -texted Infection Control to see if can come off COVID precautions as she is 11 days since positive test (4) A-fib: Plan: Patient remains in rate-controlled atrial fibrillation she is on metoprolol 25 she does not appear to be chronically anticoagulated due to Watchman device. - Last echocardiogram performed in 2020 shows preserved ejection fraction with moderate mitral regurgitation. -brief tachycardia on 10/08, most mostly rate controlled transfer off tele (5) Hypertension: Plan: BPs elevated at times when refuses to take her meds - Continue metoprolol and amlodipine (6) Parkinson disease: Plan: Has resting tremor in arm and jaw. - Continue on Sinemet & mirtazapine -> Due to ongoing fatigue, lowered her home mirtazapine to 15 mg HS on 10/02. (7) Presence of cardiac pacemaker: Plan: Noted (8) Presence of Watchman left atrial appendage closure device: Plan: Noted (9) Elevated troponin I level: Plan: Mild elevation and trended back downward, no acute ischemia on ECG and no chest pain. Myocardial demand ischemia. (10) GERD (gastroesophageal reflux disease): Plan: - Continue Protonix (11) Mood disorder: Plan: Unknown diagnosis. - Continue mirtazapine (lower dose due to daytime somnolence) - Also on gabapentin - unclear reason -> Lowered frequency as well to HS as she had a lot of daytime somnolence from 10/01 - 10/03. Stopped on 10/05. (12) DVT prophylaxis: Plan: Lovenox was initially ordered, but she refused. - Continue XU hose Plan: Dispo-awaiting for nibalbina to do either Zoom call on Sunday or could do in person visit to see if she feels she could return home with her vs go to SNF Admission and Anticipated Discharge Date Admission Date: September 27, 2021 Subjective Pt says she didn't eat, doesn't feel like eating, denies abdominal pain.Is having diarrhea. No cough, no SOB. Won't talk much, seems very depressed. Tele with Afib,paced rhythm, rates mostly 60s but briefly into the 160s this AM with exertion. Review of Systems Review of Systems: All systems reviewed & are unremarkable except as noted in HPI & below Physical Exam Constitutional: + frail appearing and cooperative Eyes: + eyelid abnormality (bilat lid lag) and + anicteric sclerae Neck: trachea midline, no thyromegaly Respiratory: normal respiratory effort, lungs clear to auscultation Cardiovascular: RRR, no murmur, no edema Chest (Breasts): Chest: normal inspection of chest Gastrointestinal (Abdomen): normal bowel sounds, soft, nontender, no hepatosplenomegaly Musculoskeletal: Extremities: extremities normal to inspection; no cyanosis and no clubbing Skin: no rashes, warm and dry Neurologic: moves all extremities and awake; no focal motor deficits Psychiatric: Orientation: alert, oriented x 3 and cooperative Affect: + flat affect Genitourinary: Hill catheter in place Lymphatic: no lymphedema Results & Data Results & Data ([facility]) Vital Signs (Past 12 Hours) Vital Signs Temp Pulse Pulse Resp BP Pulse Ox 10/08/21 11:06 36.4 C L 92 H 20 171/84 H 93 10/08/21 07:36 36.5 C 81 20 184/67 H 90 10/08/21 03:39 60 10/08/21 03:21 36.4 C L 67 18 153/57 H 95 PG Care Time/CCT Total # of Minutes Spent Total Time Spent with Patient: Total time spent is greater than 50% in coordination of care (as documented) at patient's floor/unit and/or counseling patient: Coding Level of Care Code 30715 Subseq Hosp Care Lvl 2 Diagnoses Encephalopathy G93.40 Acute diverticulitis K57.92 COVID-19 virus infection U07.1 A-fib I48.91 Atrial fibrillation type: unspecified Hypertension I10 Parkinson disease G20 Presence of cardiac pacemaker Z95.0 Presence of Watchman left atrial appendage closure device Z95.818 Elevated troponin I level R77.8 GERD (gastroesophageal reflux disease) K21.9 Mood disorder F39 DVT prophylaxis Z29.9 (1) A-fib Atrial fibrillation type: unspecified Qualified Code(s): I48.91 - Unspecified atrial fibrillation
[2021-10-08] MEDS: SACCHAROMYCES BOULARDII 250 MG CAP PO SCH (14:55)
[2021-10-08] MEDS: MIRTAZAPINE TAB 15 MG TAB PO SCH (21:19)
[2021-10-09] MEDS: ATORVASTATIN 10 MG TAB PO SCH (06:46)
[2021-10-09] MEDS: CARBIDOPA/LEVODOPA 25/100MG EXT REL TAB PO SCH ×3 (06:46→13:51)
[2021-10-09] MEDS: amLODIPine BESYLATE 5 MG TAB PO SCH (06:46)
[2021-10-09] MEDS: ASPIRIN 81 MG ECTAB PO SCH (06:46)
[2021-10-09] MEDS: SACCHAROMYCES BOULARDII 250 MG CAP PO SCH (06:47)
[2021-10-09] MEDS: METOPROLOL SUCC 25MG EXT REL TAB PO SCH (06:47)
[2021-10-09] MEDS: PANTOprazole 40 MG TAB PO SCH (06:47)
[2021-10-09 10:48] LABS: Basophils # (auto) 0.01 K/uL (0-0.2); Basophils % (auto) 0.2 %; Eosinophils # (auto) 0.04 K/uL (0-0.5); Eosinophils % (auto) 0.7 %; Hematocrit (blood only) 49.9 % (37-47); Hemoglobin 16.1 g/dL (12.0-16.0); Lymphocytes # (auto) 1.51 K/uL (1.2-3.4); Mean Corpuscular Hemoglobin 28.1 pg (25-34); Mean Corpuscular Hgb Conc 32.3 g/dL (32-36); Mean Corpuscular Volume 87.1 fL (80-100); Mean Platelet Volume 11.2 fL (7.4-10.4); Monocytes # (auto) 0.52 K/uL (0.11-0.59); Neutrophils # (auto) 3.72 K/uL (1.4-6.5); Neutrophils % (auto) 64.1 %; Platelet Count 232 K/uL (130-400); RDW Coefficient of Variation 15.5 % (11.5-14.5); RDW Standard Deviation 48.9 fL (36.4-46.3); Red Blood Count 5.73 M/uL (4.2-5.4)
[2021-10-09 11:11] LABS: Calcium 9.3 mg/dl (8.5-10.1); Creatinine Clr Calc Pharmacy 42.4 ml/min; Est GFR (African American) 88.1 ml/min; Magnesium 2.2 mg/dl (1.7-2.4); Phosphorus 2.4 mg/dl (2.5-4.9); Potassium 3.8 mmol/L (3.5-5.1)
--- NOTE | 2021-10-09 15:59 | Hospitalist Progress Note ---
Date of Service October 09, 2021 Assessment & Plan (1) Encephalopathy: Plan: Patient presents with acute encephalopathy with a baseline history of memory impairment from her Parkinson's disease. Likely secondary to metabolic encephalopathy from acute COVID infection associate with fever and from acute diverticulitis. - Significantly improved on Sunday (09/30) - much more conversational, is out of bed and ambulating, oriented x3, and smiling at times. -since then, she has continued to be awake and alert, but still refusing to eat or drink pretty much anything. No pain or nausea, just reports loss of appetite. I tried to offer other foods or to have her niece bring in food, but she says no to these options. -Today still does not want food. Wants to get out of the hospital Discussed with niece on phone on three occasions today. LUPE melendez had a Zoom call with pt and sees how withdrawn and ill her Aunt appears and wants to work towards getting her home as soon as possible once caregivers arranged. (2) Acute diverticulitis: Plan: Acute sigmoid diverticulitis and TTP on exam, improved now with minimal tenderness to palpation - completed course of Zosyn for 10-day course -continue low fiber diet for now had some diarrhea--> now resolved-->check C. diff started FLorastor give imodium prn diarrhea if C. diff negative (3) COVID-19 virus infection: Plan: With acute respiratory failure with hypoxia-now resolved after 1 to 2 days on 2 L nasal cannula. 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 Vaccinated: No Biggest issue is really poor appetite, not taking PO much at all as above POx was< 94% and was requiring 2LNC --> started Dexamethasone and remdesivir Now on room air as of 09/29. Stopped both remdesivir and dexamethasone. Has no cough, no respiratory symptoms, no fevers -texted Infection Control to see if can come off COVID precautions as she is 12 days since positive test (4) A-fib: Plan: Patient remains in rate-controlled atrial fibrillation she is on metoprolol 25 she does not appear to be chronically anticoagulated due to Watchman device. - Last echocardiogram performed in 2020 shows preserved ejection fraction with moderate mitral regurgitation. -brief tachycardia on 10/08, most mostly rate controlled transferred off tele (5) Hypertension: Plan: BPs elevated at times when refuses to take her meds which is now on most days - Continue metoprolol and amlodipine (6) Parkinson disease: Plan: Has resting tremor in arm and jaw. - Continue on Sinemet & mirtazapine -> Due to ongoing fatigue, lowered her home mirtazapine to 15 mg HS on 10/02. (7) Presence of cardiac pacemaker: Plan: Noted (8) Presence of Watchman left atrial appendage closure device: Plan: Noted (9) Elevated troponin I level: Plan: Mild elevation and trended back downward, no acute ischemia on ECG and no chest pain. Myocardial demand ischemia. (10) GERD (gastroesophageal reflux disease): Plan: - Continue Protonix (11) Mood disorder: Plan: Unknown diagnosis. - Continue mirtazapine (lower dose due to daytime somnolence) - Also on gabapentin - unclear reason -> Lowered frequency as well to HS as she had a lot of daytime somnolence from 10/01 - 10/03. Stopped on 10/05. (12) DVT prophylaxis: Plan: Lovenox was initially ordered, but she refused. - Continue XU hose Plan: Dispo-now planning on home with home health when more time from caregivers can be arranged Had multiple discussions with niece on phone today, total 60 min in prolonged service time Admission and Anticipated Discharge Date Admission Date: September 27, 2021 Subjective Pt denies pain, won't eat anything, drink anything. When asked if she wants to go home, says "yes." Very frail, curled up in bed, minimally interactive with all staff, denies depression. No further diarrhea Review of Systems Review of Systems: All systems reviewed & are unremarkable except as noted in HPI & below Physical Exam Constitutional: + frail appearing and cooperative Eyes: + eyelid abnormality (bilat lid lag) and + anicteric sclerae Neck: trachea midline, no thyromegaly Respiratory: normal respiratory effort, lungs clear to auscultation Cardiovascular: RRR, no murmur, no edema Chest (Breasts): Chest: normal inspection of chest Gastrointestinal (Abdomen): normal bowel sounds, soft, nontender, no hepatosplenomegaly Inspection/Auscultation: abdomen normal to inspection and normal bowel sounds; abdomen not distended Musculoskeletal: Extremities: extremities normal to inspection; no cyanosis and no clubbing Skin: no rashes, warm and dry Neurologic: moves all extremities and awake; no focal motor deficits Psychiatric: Orientation: alert, oriented x 3 and cooperative Affect: + flat affect Lymphatic: no lymphedema Results & Data Results & Data ([facility]) Vital Signs (Past 12 Hours) Vital Signs Temp Pulse Resp BP Pulse Ox 10/09/21 15:56 36.4 C L 77 18 174/67 H 92 10/09/21 11:29 36.4 C L 65 18 169/67 H 98 10/09/21 07:34 36.5 C 72 18 177/69 H 93 10/09/21 05:01 36.3 C L PG Care Time/CCT Total # of Minutes Spent Total Time Spent with Patient: Total time spent is greater than 50% in coordination of care (as documented) at patient's floor/unit and/or counseling patient: Prolonged Care Time Prolonged Care Time: Yes Total Prolonged Care Time: 60 Coding Level of Care Code 11651 Subseq Hosp Care Lvl 3 (25 - SIGNIFICANT, SEPARATELY IDENTIFIABLE ) Diagnoses Encephalopathy G93.40 Acute diverticulitis K57.92 COVID-19 virus infection U07.1 A-fib I48.91 Atrial fibrillation type: unspecified Hypertension I10 Parkinson disease G20 Presence of cardiac pacemaker Z95.0 Presence of Watchman left atrial appendage closure device Z95.818 Elevated troponin I level R77.8 GERD (gastroesophageal reflux disease) K21.9 Mood disorder F39 DVT prophylaxis Z29.9 Additional Codes Prolonged Care Time - Prolonged Care Time: Yes ([id number]) (1) A-fib Atrial fibrillation type: unspecified Qualified Code(s): I48.91 - Unspecified atrial fibrillation
[2021-10-09] MEDS: D5W AND LACTATED RINGERS 1,000 ML IV SCH (16:55)
[2021-10-09] MEDS: MIRTAZAPINE TAB 15 MG TAB PO SCH ×2 (20:44→20:45)
[2021-10-10] MEDS: D5W AND LACTATED RINGERS 1,000 ML IV SCH ×2 (05:46→18:34)
[2021-10-10] MEDS: CARBIDOPA/LEVODOPA 25/100MG EXT REL TAB PO SCH ×3 (10:05→16:49)
[2021-10-10] MEDS: amLODIPine BESYLATE 5 MG TAB PO SCH (10:05)
[2021-10-10] MEDS: ASPIRIN 81 MG ECTAB PO SCH (10:06)
[2021-10-10] MEDS: PANTOprazole 40 MG TAB PO SCH (10:07)
[2021-10-10] MEDS: METOPROLOL SUCC 25MG EXT REL TAB PO SCH (10:07)
[2021-10-10] MEDS: ATORVASTATIN 10 MG TAB PO SCH (10:07)
[2021-10-10] MEDS: SACCHAROMYCES BOULARDII 250 MG CAP PO SCH (10:07)
--- NOTE | 2021-10-10 15:12 | Hospitalist Progress Note ---
Date of Service October 10, 2021 Assessment & Plan (1) Encephalopathy: Plan: Patient presents with acute encephalopathy with a baseline history of memory impairment from her Parkinson's disease. Likely secondary to metabolic encephalopathy from acute COVID infection associate with fever and from acute diverticulitis. - Significantly improved on Sunday (09/30) - much more conversational, is out of bed and ambulating, oriented x3, and smiling at times. -since then, she has continued to be awake and alert, but still refusing to eat or drink pretty much anything. No pain or nausea, just reports loss of appetite. I tried to offer other foods or to have her niece bring in food, but she says no to these options. -Finally, after a visit from her nephew on 10/10, her spirits are lifted a bit and she is willing to eat a little bit of chicken noodle soup Discussed with niece on phone on three occasions on 10/09.. She then had a Zoom call with pt and sees how withdrawn and ill her Aunt appears and wants to work towards getting her home as soon as possible once caregivers arranged. -Continue maintenance fluids with D5 LR until able to take more p.o. adequately (2) Acute diverticulitis: Plan: Acute sigmoid diverticulitis and TTP on exam, improved now with minimal tenderness to palpation - completed course of Zosyn for 10-day course -Okay to be on regular diet had some diarrhea--> now resolved-C. difficile never checked as diarrhea resolved started FLorastor (3) COVID-19 virus infection: Plan: With acute respiratory failure with hypoxia-now resolved after 1 to 2 days on 2 L nasal cannula. 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 Vaccinated: No Biggest issue is really poor appetite, not taking PO much at all as above POx was< 94% and was requiring 2LNC --> started Dexamethasone and remdesivir Now on room air as of 09/29. Stopped both remdesivir and dexamethasone. Has no cough, no respiratory symptoms, no fevers Now, for Covid precautions on 10/10 (4) A-fib: Plan: Patient remains in rate-controlled atrial fibrillation she is on metoprolol 25 she does not appear to be chronically anticoagulated due to Watchman device. - Last echocardiogram performed in 2020 shows preserved ejection fraction with moderate mitral regurgitation. -brief tachycardia on 10/08, most mostly rate controlled transferred off tele (5) Hypertension: Plan: BPs elevated at times when refuses to take her meds which is now on most days - Continue metoprolol and amlodipine if she is willing to take them (6) Parkinson disease: Plan: Has resting tremor in arm and jaw. - Continue on Sinemet & mirtazapine when willing to take them -> Due to ongoing fatigue, lowered her home mirtazapine to 15 mg HS on 10/02. (7) Presence of cardiac pacemaker: Plan: Noted (8) Presence of Watchman left atrial appendage closure device: Plan: Noted (9) Elevated troponin I level: Plan: Mild elevation and trended back downward, no acute ischemia on ECG and no chest pain. Myocardial demand ischemia. (10) GERD (gastroesophageal reflux disease): Plan: - Continue Protonix (11) Mood disorder: Plan: Unknown diagnosis. - Continue mirtazapine (lower dose due to daytime somnolence) - Also on gabapentin - unclear reason -> Lowered frequency as well to HS as she had a lot of daytime somnolence from 10/01 - 10/03. Stopped on 10/05. (12) DVT prophylaxis: Plan: Lovenox was initially ordered, but she refused. - Continue XU gonzalese Plan: Dispo-now planning on home with home health when 24/7 caregivers can be arranged Admission and Anticipated Discharge Date Admission Date: September 27, 2021 Subjective Patient had a visitor today by her nephew as per nursing staff, however when I asked the patient about it, she does not recall this. She does seem to be in a slightly better spirits today. She denies any abdominal pain. She does say that she would be willing to try some chicken noodle soup to eat. Review of Systems Review of Systems: All systems reviewed & are unremarkable except as noted in HPI & below Physical Exam Constitutional: + frail appearing and cooperative Eyes: + eyelid abnormality (bilat lid lag) and + anicteric sclerae Neck: trachea midline, no thyromegaly Respiratory: normal respiratory effort, lungs clear to auscultation Cardiovascular: RRR, no murmur, no edema Chest (Breasts): Chest: normal inspection of chest Gastrointestinal (Abdomen): normal bowel sounds, soft, nontender, no hepatosplenomegaly Inspection/Auscultation: abdomen normal to inspection and normal bowel sounds; abdomen not distended Musculoskeletal: Extremities: extremities normal to inspection; no cyanosis and no clubbing Skin: no rashes, warm and dry Neurologic: moves all extremities and awake; no focal motor deficits Psychiatric: Orientation: alert, oriented x 3 and cooperative Affect: + flat affect Lymphatic: no lymphedema Results & Data Results & Data ([facility]) Vital Signs (Past 12 Hours) Vital Signs Temp Pulse Resp BP Pulse Ox 10/10/21 06:23 35.8 C L 63 18 158/65 H 94 PG Care Time/CCT Total # of Minutes Spent Total Time Spent with Patient: Total time spent is greater than 50% in coordination of care (as documented) at patient's floor/unit and/or counseling patient: Coding Level of Care Code 48262 Subseq Hosp Care Lvl 2 Diagnoses Encephalopathy G93.40 Acute diverticulitis K57.92 COVID-19 virus infection U07.1 A-fib I48.91 Atrial fibrillation type: unspecified Hypertension I10 Parkinson disease G20 Presence of cardiac pacemaker Z95.0 Presence of Watchman left atrial appendage closure device Z95.818 Elevated troponin I level R77.8 GERD (gastroesophageal reflux disease) K21.9 Mood disorder F39 DVT prophylaxis Z29.9 (1) A-fib Atrial fibrillation type: unspecified Qualified Code(s): I48.91 - Unspecified atrial fibrillation
[2021-10-10] MEDS: THIAMINE HCL 200 MG in SODIUM CHLORIDE 0.9% 50 ML IV SCH (16:51)
[2021-10-10] MEDS: MIRTAZAPINE TAB 15 MG TAB PO SCH (20:17)
[2021-10-11] MEDS: D5W AND LACTATED RINGERS 1,000 ML IV SCH ×2 (05:59→18:38)
[2021-10-11 06:30] LABS: Basophils # (auto) 0.04 K/uL (0-0.2); Basophils % (auto) 0.6 %; Eosinophils # (auto) 0.14 K/uL (0-0.5); Eosinophils % (auto) 1.9 %; Hematocrit (blood only) 44.8 % (37-47); Hemoglobin 14.7 g/dL (12.0-16.0); Immature Granulocytes # (auto) 0.01 K/uL (0.00-0.02); Immature Granulocytes % (auto) 0.1 %; Lymphocytes # (auto) 2.07 K/uL (1.2-3.4); Lymphocytes % (auto) 28.8 %; Mean Corpuscular Hemoglobin 28.4 pg (25-34); Mean Corpuscular Hgb Conc 32.8 g/dL (32-36); Mean Corpuscular Volume 86.5 fL (80-100); Mean Platelet Volume 11.2 fL (7.4-10.4); Monocytes # (auto) 0.58 K/uL (0.11-0.59); Monocytes % (auto) 8.1 %; Neutrophils # (auto) 4.34 K/uL (1.4-6.5); Neutrophils % (auto) 60.5 %; Platelet Count 197 K/uL (130-400); RDW Coefficient of Variation 15.1 % (11.5-14.5); RDW Standard Deviation 47.8 fL (36.4-46.3); Red Blood Count 5.18 M/uL (4.2-5.4); White Blood Count 7.18 K/uL (4.8-10.8)
[2021-10-11 06:58] LABS: BUN Creatinine Ratio 25.8 (10-20); Calcium 8.6 mg/dl (8.5-10.1); Creatinine Clr Calc Pharmacy 48.5 ml/min; Est GFR (African American) 93.3 ml/min; Est GFR (Non-African American) 80.5 ml/min; Magnesium 1.7 mg/dl (1.7-2.4); Potassium 2.8 mmol/L (3.5-5.1)
[2021-10-11] MEDS ORDERED: POTASSIUM PHOS 3 MMOL/1 ML INFUSION IV STA (07:50)
[2021-10-11] MEDS ORDERED: MAGNESIUM SULFATE / D5W 1 GM/100 ML BAG IV ONE (08:00)
[2021-10-11] MEDS ORDERED: POTASSIUM PHOSPHATE 21 MMOL in SODIUM CHLORIDE 0.9% 500 ML IV ONE (08:00)
[2021-10-11] MEDS: THIAMINE HCL 200 MG in SODIUM CHLORIDE 0.9% 50 ML IV SCH (08:57)
[2021-10-11] MEDS: PANTOprazole 40 MG TAB PO SCH (09:02)
[2021-10-11] MEDS: amLODIPine BESYLATE 5 MG TAB PO SCH (09:02)
[2021-10-11] MEDS: SACCHAROMYCES BOULARDII 250 MG CAP PO SCH (09:02)
[2021-10-11] MEDS: METOPROLOL SUCC 25MG EXT REL TAB PO SCH (09:02)
[2021-10-11] MEDS: ATORVASTATIN 10 MG TAB PO SCH ×2 (09:02→11:34)
[2021-10-11] MEDS: CARBIDOPA/LEVODOPA 25/100MG EXT REL TAB PO SCH ×3 (09:02→16:55)
[2021-10-11] MEDS: ASPIRIN 81 MG ECTAB PO SCH (09:02)
--- NOTE | 2021-10-11 11:47 | Hospitalist Progress Note ---
Date of Service October 11, 2021 Assessment & Plan (1) Encephalopathy: Plan: Patient presents with acute encephalopathy with a baseline history of memory impairment from her Parkinson's disease. Likely secondary to metabolic encephalopathy from acute COVID infection associate with fever and from acute diverticulitis. - Significantly improved on Sunday (09/30) - much more conversational, is out of bed and ambulating, oriented x3, and smiling at times. -since then, she continued to be awake and alert, but still refusing to eat or drink pretty much anything. No pain or nausea, just reports loss of appetite. I tried to offer other foods or to have her niece bring in food, but she says no to these options. -Finally, after a visit from her nephew on 10/10, her spirits are lifted a bit and she is willing to eat a little bit of chicken noodle soup Discussed with niece on phone on three occasions on 10/09.. She then had a Zoom call with pt and sees how withdrawn and ill her Aunt appears and wants to work towards getting her home as soon as possible once caregivers arranged. On 10/11, seems to be more awake and alert, but still has 0 appetite and not eating or drinking anything Hoping that a visit from her niece on the evening 10/11 will encourage her to eat more. She understands that if she does not start eating and drinking, that she will continue to get weak and not be able to get out of the hospital -Continue maintenance fluids with D5 LR until able to take more p.o. adequately -Appreciate dietary input (2) Acute diverticulitis: Plan: Acute sigmoid diverticulitis-now resolved - completed course of Zosyn for 10-day course -Okay to be on regular diet had some diarrhea--> now resolved-C. difficile never checked as diarrhea resolved started FLorastor (3) COVID-19 virus infection: Plan: With acute respiratory failure with hypoxia-now resolved after 1 to 2 days on 2 L nasal cannula. 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 Vaccinated: No Biggest issue is really poor appetite, not taking PO much at all as above POx was< 94% and was requiring 2LNC --> started Dexamethasone and remdesivir Now on room air as of 09/29. Stopped both remdesivir and dexamethasone. Has no cough, no respiratory symptoms, no fevers Now, off Covid precautions on 10/10, but awaiting a bed outside the Covid unit (4) A-fib: Plan: Patient remains in rate-controlled atrial fibrillation she is on metoprolol 25 she does not appear to be chronically anticoagulated due to Watchman device. - Last echocardiogram performed in 2020 shows preserved ejection fraction with moderate mitral regurgitation. -brief tachycardia on 10/08, most mostly rate controlled transferred off tele (5) Hypertension: Plan: BPs elevated at times when refuses to take her meds which is now on most days - Continue metoprolol and amlodipine if she is willing to take them (6) Hypokalemia: Plan: Severely low at 2.8, secondary to poor p.o. intake Replace with IV potassium phosphorus Replacing IV magnesium Follow BMP and magnesium in the morning (7) Hypophosphatemia: Plan: As above, replacing, due to poor p.o. intake Follow level in the morning (8) Hypomagnesemia: Plan: As above, replace with IV magnesium sulfate Follow magnesium level in the morning (9) Elevated troponin I level: Plan: Mild elevation and trended back downward, no acute ischemia on ECG and no chest pain. Myocardial demand ischemia. (10) GERD (gastroesophageal reflux disease): Plan: - Continue Protonix (11) Mood disorder: Plan: Unknown diagnosis. - Continue mirtazapine (lower dose due to daytime somnolence) - Also on gabapentin - unclear reason -> Lowered frequency as well to HS as she had a lot of daytime somnolence from 10/01 - 10/03. Stopped on 10/05. (12) Parkinson disease: Plan: Has resting tremor in arm and jaw. - Continue on Sinemet & mirtazapine when willing to take them -> Due to ongoing fatigue, lowered her home mirtazapine to 15 mg HS on 10/02. (13) Presence of cardiac pacemaker: Plan: Noted (14) Presence of Watchman left atrial appendage closure device: Plan: Noted (15) DVT prophylaxis: Plan: Lovenox was initially ordered, but she refused. - Continue XU alvarado Plan: Dispo-now planning on home with home health when / caregivers can be arranged, with possible transition to hospice if she continues to decline Admission and Anticipated Discharge Date Admission Date: September 27, 2021 Subjective Patient is out of bed to chair today and seems more alert and awake. She had her pills this morning with pudding, but otherwise did not eat any breakfast and does not want to eat any lunch. She said she tried some of the chicken noodle soup yesterday and did not like it. She just has no appetite and nothing tastes good. I could not convince her to try any food. She is excited that her niece is coming to visit this evening. Review of Systems Review of Systems: All systems reviewed & are unremarkable except as noted in HPI & below Physical Exam Constitutional: + frail appearing and cooperative Eyes: + eyelid abnormality (bilat lid lag) and + anicteric sclerae Neck: trachea midline, no thyromegaly Respiratory: normal respiratory effort, lungs clear to auscultation Cardiovascular: RRR, no murmur, no edema Chest (Breasts): Chest: normal inspection of chest Gastrointestinal (Abdomen): normal bowel sounds, soft, nontender, no hepatos plenomegaly Musculoskeletal: Extremities: extremities normal to inspection; no cyanosis and no clubbing Skin: no rashes, warm and dry Neurologic: moves all extremities and awake; no focal motor deficits Psychiatric: Orientation: alert, oriented x 3 and cooperative Lymphatic: no lymphedema Results & Data Results & Data ([facility]) Vital Signs (Past 12 Hours) Vital Signs Temp Pulse Resp BP Pulse Ox 10/11/21 07:32 36.6 C 73 20 147/65 H 94 Laboratory Results 10/11/21 10/11/21 Range/Units 06:03 06:03 WBC 7.18 (4.8-10.8) K/uL RBC 5.18 (4.2-5.4) M/uL Hgb 14.7 (12.0-16.0) g/dL Hct 44.8 (37-47) % MCV 86.5 (80-100) fL MCH 28.4 (25-34) pg MCHC 32.8 (32-36) g/dL RDW Std Deviation 47.8 H (36.4-46.3) fL RDW Coeff of Dontae 15.1 H (11.5-14.5) % Plt Count 197 (130-400) K/uL MPV 11.2 H (7.4-10.4) fL Immature Gran % (Auto) 0.1 % Neut % (Auto) 60.5 % Lymph % (Auto) 28.8 % [place] % (Auto) 8.1 % Eos % (Auto) 1.9 % Baso % (Auto) 0.6 % Neut # (Auto) 4.34 (1.4-6.5) K/uL Lymph # (Auto) 2.07 (1.2-3.4) K/uL [place] # (Auto) 0.58 (0.11-0.59) K/uL Eos # (Auto) 0.14 (0-0.5) K/uL Baso # (Auto) 0.04 (0-0.2) K/uL Immature Gran # (Auto) 0.01 (0.00-0.02) K/uL Sodium 145 (136-145) mmol/L Potassium 2.8 L D (3.5-5.1) mmol/L Chloride 110 H (98-107) mmol/L Carbon Dioxide 27 (21-32) mmol/L Anion Gap 8 (3-11) BUN 16 (6-23) mg/dl Creatinine 0.62 (0.6-1.2) mg/dl Est Cr Clr Drug Dosing 48.5 ml/min Est GFR ( Amer) 93.3 ml/min Est GFR (Non-Af Amer) 80.5 ml/min BUN/Creatinine Ratio 25.8 H (10-20) Glucose 120 H (70-99(Fasting)) mg/dl Calcium 8.6 (8.5-10.1) mg/dl Phosphorus 2.0 L (2.5-4.9) mg/dl Magnesium 1.7 (1.7-2.4) mg/dl PG Care Time/CCT Total # of Minutes Spent Total Time Spent with Patient: Total time spent is greater than 50% in coordination of care (as documented) at patient's floor/unit and/or counseling patient: Coding Level of Care Code 51935 Subseq Hosp Care Lvl 2 Diagnoses Encephalopathy G93.40 Acute diverticulitis K57.92 COVID-19 virus infection U07.1 A-fib I48.91 Atrial fibrillation type: unspecified Hypertension I10 Parkinson disease G20 Presence of cardiac pacemaker Z95.0 Presence of Watchman left atrial appendage closure device Z95.818 Elevated troponin I level R77.8 GERD (gastroesophageal reflux disease) K21.9 Mood disorder F39 DVT prophylaxis Z29.9 Hypokalemia E87.6 Hypophosphatemia E83.39 Hypomagnesemia E83.42 (1) A-fib Atrial fibrillation type: unspecified Qualified Code(s): I48.91 - Unspecified atrial fibrillation
[2021-10-11] MEDS: MIRTAZAPINE TAB 15 MG TAB PO SCH (20:37)
[2021-10-12] MEDS: D5W AND LACTATED RINGERS 1,000 ML IV SCH ×2 (08:04→21:16)
[2021-10-12] MEDS: METOPROLOL SUCC 25MG EXT REL TAB PO SCH (08:05)
[2021-10-12] MEDS: PANTOprazole 40 MG TAB PO SCH (08:05)
[2021-10-12] MEDS: CARBIDOPA/LEVODOPA 25/100MG EXT REL TAB PO SCH ×3 (08:05→16:42)
[2021-10-12] MEDS: ATORVASTATIN 10 MG TAB PO SCH (08:05)
[2021-10-12] MEDS: amLODIPine BESYLATE 5 MG TAB PO SCH (08:06)
[2021-10-12] MEDS: SACCHAROMYCES BOULARDII 250 MG CAP PO SCH (08:06)
[2021-10-12] MEDS: ASPIRIN 81 MG ECTAB PO SCH (08:06)
[2021-10-12] MEDS: THIAMINE HCL 200 MG in SODIUM CHLORIDE 0.9% 50 ML IV SCH (08:16)
[2021-10-12 08:32] LABS: Basophils # (auto) 0.04 K/uL (0-0.2); Basophils % (auto) 0.5 %; Eosinophils # (auto) 0.25 K/uL (0-0.5); Eosinophils % (auto) 3.4 %; Hematocrit (blood only) 45.1 % (37-47); Hemoglobin 14.8 g/dL (12.0-16.0); Immature Granulocytes # (auto) 0.01 K/uL (0.00-0.02); Immature Granulocytes % (auto) 0.1 %; Lymphocytes # (auto) 2.23 K/uL (1.2-3.4); Lymphocytes % (auto) 30.2 %; Mean Corpuscular Hemoglobin 28.6 pg (25-34); Mean Corpuscular Hgb Conc 32.8 g/dL (32-36); Mean Corpuscular Volume 87.1 fL (80-100); Monocytes # (auto) 0.44 K/uL (0.11-0.59); Neutrophils # (auto) 4.42 K/uL (1.4-6.5); Neutrophils % (auto) 59.8 %; Platelet Count 177 K/uL (130-400); RDW Coefficient of Variation 15.1 % (11.5-14.5); RDW Standard Deviation 48.6 fL (36.4-46.3); Red Blood Count 5.18 M/uL (4.2-5.4); White Blood Count 7.39 K/uL (4.8-10.8)
[2021-10-12 10:19] LABS: Albumin Globulin Ratio 1.1 (0.9-2); Albumin Level 3.2 gm/dl (3.4-5.0); BUN Creatinine Ratio 13.9 (10-20); Bilirubin,Total 0.8 mg/dl (0.2-1.0); Calcium 8.4 mg/dl (8.5-10.1); Creatinine Clr Calc Pharmacy 38.1 ml/min; Est GFR (African American) 77.5 ml/min; Est GFR (Non-African American) 66.8 ml/min; Globulin 2.8 gm/dl (2.5-4.0); Magnesium 1.9 mg/dl (1.7-2.4); Phosphorus 3.3 mg/dl (2.5-4.9); Potassium 3.1 mmol/L (3.5-5.1)
[2021-10-12] MEDS ORDERED: MAGNESIUM SULFATE / D5W 1 GM/100 ML BAG IV ONE (11:10)
--- NOTE | 2021-10-12 11:23 | Hospitalist Progress Note ---
Date of Service October 12, 2021 Assessment & Plan (1) Encephalopathy: Plan: Patient presents with acute encephalopathy with a baseline history of memory impairment from her Parkinson's disease. Likely secondary to metabolic encephalopathy from acute COVID infection associate with fever and from acute diverticulitis. - Significantly improved on Sunday (09/30) - much more conversational, is out of bed and ambulating, oriented x3, and smiling at times. -since then, she continued to be awake and alert, but still refusing to eat or drink pretty much anything. No pain or nausea, just reports loss of appetite. I tried to offer other foods or to have her niece bring in food, but she says no to these options. -Finally, after a visit from her nephew on 10/10, her spirits are lifted a bit and she is willing to eat a little bit of chicken noodle soup Discussed with niece on phone on three occasions on 10/09.. She then had a Zoom call with pt and sees how withdrawn and ill her Aunt appears and wants to work towards getting her home as soon as possible once caregivers arranged. On 10/11, seems to be more awake and alert, but still had zero appetite and not eating or drinking anything She then had a visit from her niece on the evening of 10/11 and ate Taco [employer]! Was transferred off COVID unit and now in much better spirits, appetite improving -Continue maintenance fluids with D5 LR until able to take more p.o. adequately -continue to replace lytes as needed -started IV thiamine daily on 10/09 -Appreciate dietary input (2) Acute diverticulitis: Plan: Acute sigmoid diverticulitis-now resolved - completed course of Zosyn for 10-day course -continue regular diet had some diarrhea--> now resolved-C. difficile never checked as diarrhea resolved started FLorastor (3) COVID-19 virus infection: Plan: With acute respiratory failure with hypoxia-now resolved after 1 to 2 days on 2 L nasal cannula. 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 Vaccinated: No Biggest issue is really poor appetite, not taking PO much at all as above but now slowly improving POx was< 94% and was requiring 2LNC --> started Dexamethasone and remdesivir, but then discotninued after a few days due to hallucinations thought to be from steroids Now on room air as of 09/29. Has no cough, no respiratory symptoms, no fevers Now, off Covid precautions on 10/10 (4) A-fib: Plan: Patient remains in rate-controlled atrial fibrillation she is on metoprolol 25 she does not appear to be chronically anticoagulated due to Watchman device. - Last echocardiogram performed in 2020 shows preserved ejection fraction with moderate mitral regurgitation. -brief tachycardia on 10/08, most mostly rate controlled transferred off tele (5) Hypertension: Plan: BPs elevated at times when refuses to take her meds which is now on most days - Continue metoprolol and amlodipine if she is willing to take them (6) Hypokalemia: Plan: Severely low again, secondary to poor p.o. intake Replace with IV potassium Replacing IV magnesium Follow BMP and magnesium in the morning (7) Hypophosphatemia: Plan: replaced and resolved follow level in AM and watch for refeeding syndrome (8) Hypomagnesemia: Plan: As above, replace with IV magnesium sulfate Follow magnesium level in the morning (9) Elevated troponin I level: Plan: Mild elevation and trended back downward, no acute ischemia on ECG and no chest pain. Myocardial demand ischemia. (10) GERD (gastroesophageal reflux disease): Plan: - Continue Protonix (11) Mood disorder: Plan: Unknown diagnosis. - Continue mirtazapine (lower dose due to daytime somnolence) - Also on gabapentin - unclear reason -> Lowered frequency as well to HS as she had a lot of daytime somnolence from 10/01 - 10/03. Stopped on 10/05. (12) Parkinson disease: Plan: Has resting tremor in arm and jaw. - Continue on Sinemet & mirtazapine when willing to take them -> Due to ongoing fatigue, lowered her home mirtazapine to 15 mg HS on 10/02. (13) Presence of cardiac pacemaker: Plan: Noted (14) Presence of Watchman left atrial appendage closure device: Plan: Noted (15) DVT prophylaxis: Plan: Lovenox was initially ordered, but she refused. - Continue XU alvarado Plan: Dispo-now planning on SNF placement as is improving but needs strengthening before can go home with home health as she lives alone with no caregivers at nighttime - with possible transition to hospice if she declines again CM aware of SNF referrals needed, awaiting bed Asked PT/OT to see again Admission and Anticipated Discharge Date Admission Date: September 27, 2021 Subjective Pt denies pain. SHe did have a taco for dinner last night that her niece brought her from [place]! I watched her eat it and she said it tasted good and she was in good spirits. Today she reports drinking coffee for breakfast but no food. Has not yet worked with PT today Review of Systems Review of Systems: All systems reviewed & are unremarkable except as noted in HPI & below Physical Exam Constitutional: + frail appearing and cooperative Eyes: + eyelid abnormality (bilat lid lag) and + anicteric sclerae Neck: trachea midline, no thyromegaly Respiratory: normal respiratory effort, lungs clear to auscultation Cardiovascular: RRR, no murmur, no edema Chest (Breasts): Chest: normal inspection of chest Gastrointestinal (Abdomen): normal bowel sounds, soft, nontender, no hepatosplenomegaly Musculoskeletal: Extremities: extremities normal to inspection; no cyanosis and no clubbing Skin: no rashes, warm and dry Neurologic: moves all extremities and awake; no focal motor deficits Psychiatric: Orientation: alert, oriented x 3 and cooperative Lymphatic: no lymphedema Results & Data Results & Data ([facility]) Vital Signs (Past 12 Hours) Vital Signs Temp Pulse BP Pulse Ox 10/12/21 07:46 36.6 C 61 154/73 H 99 Laboratory Results 10/12/21 10/12/21 Range/Units 08:21 08:21 WBC 7.39 (4.8-10.8) K/uL RBC 5.18 (4.2-5.4) M/uL Hgb 14.8 (12.0-16.0) g/dL Hct 45.1 (37-47) % MCV 87.1 (80-100) fL MCH 28.6 (25-34) pg MCHC 32.8 (32-36) g/dL RDW Std Deviation 48.6 H (36.4-46.3) fL RDW Coeff of Dontae 15.1 H (11.5-14.5) % Plt Count 177 (130-400) K/uL MPV 11.0 H (7.4-10.4) fL Immature Gran % (Auto) 0.1 % Neut % (Auto) 59.8 % Lymph % (Auto) 30.2 % [place] % (Auto) 6.0 % Eos % (Auto) 3.4 % Baso % (Auto) 0.5 % Neut # (Auto) 4.42 (1.4-6.5) K/uL Lymph # (Auto) 2.23 (1.2-3.4) K/uL [place] # (Auto) 0.44 (0.11-0.59) K/uL Eos # (Auto) 0.25 (0-0.5) K/uL Baso # (Auto) 0.04 (0-0.2) K/uL Immature Gran # (Auto) 0.01 (0.00-0.02) K/uL Sodium 145 (136-145) mmol/L Potassium 3.1 L (3.5-5.1) mmol/L Chloride 109 H (98-107) mmol/L Carbon Dioxide 29 (21-32) mmol/L Anion Gap 7 (3-11) BUN 11 (6-23) mg/dl Creatinine 0.79 (0.6-1.2) mg/dl Est Cr Clr Drug Dosing 38.1 ml/min Est GFR ( Amer) 77.5 ml/min Est GFR (Non-Af Amer) 66.8 ml/min BUN/Creatinine Ratio 13.9 (10-20) Glucose 117 H (70-99(Fasting)) mg/dl Calcium 8.4 L (8.5-10.1) mg/dl Phosphorus 3.3 D (2.5-4.9) mg/dl Magnesium 1.9 (1.7-2.4) mg/dl Total Bilirubin 0.8 (0.2-1.0) mg/dl AST 19 (13-39) U/L ALT 5 L (7-52) U/L Alkaline Phosphatase 107 H (34-104) U/L Total Protein 6.0 (6.0-8.3) gm/dl Albumin 3.2 L (3.4-5.0) gm/dl Globulin 2.8 (2.5-4.0) gm/dl Albumin/Globulin Ratio 1.1 (0.9-2) PG Care Time/CCT Total # of Minutes Spent Total Time Spent with Patient: Total time spent is greater than 50% in coordination of care (as documented) at patient's floor/unit and/or counseling patient: Coding Level of Care Code 28178 Subseq Hosp Care Lvl 2 Diagnoses Encephalopathy G93.40 Acute diverticulitis K57.92 COVID-19 virus infection U07.1 A-fib I48.91 Atrial fibrillation type: unspecified Hypertension I10 Hypokalemia E87.6 Hypophosphatemia E83.39 Hypomagnesemia E83.42 Elevated troponin I level R77.8 GERD (gastroesophageal reflux disease) K21.9 Mood disorder F39 Parkinson disease G20 Presence of cardiac pacemaker Z95.0 Presence of Watchman left atrial appendage closure device Z95.818 DVT prophylaxis Z29.9 (1) A-fib Atrial fibrillation type: unspecified Qualified Code(s): I48.91 - Unspecified atrial fibrillation
[2021-10-12] MEDS: POTASSIUM CHLORIDE / WTR 10 MEQ/100 ML PLCT IV SCH ×4 (12:03→16:41)
[2021-10-12] MEDS: MIRTAZAPINE TAB 15 MG TAB PO SCH (21:15)
[2021-10-13] MEDS: ASPIRIN 81 MG ECTAB PO SCH ×2 (08:13→09:15)
[2021-10-13] MEDS: amLODIPine BESYLATE 5 MG TAB PO SCH ×2 (08:13→09:15)
[2021-10-13] MEDS: METOPROLOL SUCC 25MG EXT REL TAB PO SCH ×2 (08:13→09:15)
[2021-10-13] MEDS: ATORVASTATIN 10 MG TAB PO SCH ×2 (08:13→09:15)
[2021-10-13] MEDS: PANTOprazole 40 MG TAB PO SCH ×2 (08:14→09:15)
[2021-10-13] MEDS: SACCHAROMYCES BOULARDII 250 MG CAP PO SCH ×2 (08:14→09:15)
[2021-10-13] MEDS: CARBIDOPA/LEVODOPA 25/100MG EXT REL TAB PO SCH ×4 (08:14→16:35)
[2021-10-13] MEDS: THIAMINE HCL 200 MG in SODIUM CHLORIDE 0.9% 50 ML IV SCH (08:19)
[2021-10-13] MEDS: D5W AND LACTATED RINGERS 1,000 ML IV SCH ×2 (09:29→22:37)
--- NOTE | 2021-10-13 10:14 | Hospitalist Progress Note ---
Date of Service October 13, 2021 Assessment & Plan (1) Encephalopathy: Plan: Patient presents with acute encephalopathy with a baseline history of memory impairment from her Parkinson's disease. Likely secondary to metabolic encephalopathy from acute COVID infection associate with fever and from acute diverticulitis. - Significantly improved on Sunday (09/30) - much more conversational, is out of bed and ambulating, oriented x3, and smiling at times. -since then, she continued to be awake and alert, but still refusing to eat or drink pretty much anything. No pain or nausea, just reports loss of appetite. I tried to offer other foods or to have her niece bring in food, but she says no to these options. -Finally, after a visit from her nephew on 10/10, her spirits are lifted a bit and she is willing to eat a little bit of chicken noodle soup Discussed with niece on phone on three occasions on 10/09.. She then had a Zoom call with pt and sees how withdrawn and ill her Aunt appears and wants to work towards getting her home as soon as possible once caregivers arranged. On 10/11, seems to be more awake and alert, but still had zero appetite and not eating or drinking anything She then had a visit from her niece on the evening of 10/11 and ate Taco [employer]! Was transferred off COVID unit and now in much better spirits, appetite improving, and participated with PT on 10/12 on 10/13, back to being fatigued, refusing all meds and food, no focal deficits, no acute symptoms -Continue maintenance fluids with D5 LR until able to take more p.o. adequately -continue to replace lytes as needed -started IV thiamine daily on 10/09 -Appreciate dietary input -continue supportive care (2) Acute diverticulitis: Plan: Acute sigmoid diverticulitis-now resolved - completed course of Zosyn for 10-day course -continue regular diet had some diarrhea--> now resolved-C. difficile never checked as diarrhea resolved started FLorastor (3) COVID-19 virus infection: Plan: With acute respiratory failure with hypoxia-now resolved after 1 to 2 days on 2 L nasal cannula. 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 Vaccinated: No Biggest issue is really poor appetite, not taking PO much at all as above but now slowly improving POx was< 94% and was requiring 2LNC --> started Dexamethasone and remdesivir, but then discotninued after a few days due to hallucinations thought to be from steroids Now on room air as of 09/29. Has no cough, no respiratory symptoms, no fevers Now, off Covid precautions on 10/10 (4) A-fib: Plan: Patient remains in rate-controlled atrial fibrillation she is on metoprolol 25 she does not appear to be chronically anticoagulated due to Watchman device. - Last echocardiogram performed in 2020 shows preserved ejection fraction with moderate mitral regurgitation. -brief tachycardia on 10/08, most mostly rate controlled transferred off tele (5) Hypertension: Plan: BPs elevated at times when refuses to take her meds which is now on most days - Continue metoprolol and amlodipine if she is willing to take them (6) Hypokalemia: Plan: Severely low, secondary to poor p.o. intake Replaced with IV potassium Replaced IV magnesium Follow BMP and magnesium -labs still pending from this AM (7) Hypophosphatemia: Plan: replaced and resolved follow level in AM and watch for refeeding syndrome labs pending today (8) Hypomagnesemia: Plan: As above, replaced with IV magnesium sulfate Follow magnesium level in the morning-labs pending (9) Elevated troponin I level: Plan: Mild elevation and trended back downward, no acute ischemia on ECG and no chest pain. Myocardial demand ischemia. (10) GERD (gastroesophageal reflux disease): Plan: - Continue Protonix -add on IV Pepcid 20mg bid today for worsening appetite again and not taking po PPI (11) Mood disorder: Plan: Unknown diagnosis. - Continue mirtazapine (lower dose due to daytime somnolence) - Also on gabapentin - unclear reason -> Lowered frequency as well to HS as she had a lot of daytime somnolence from 10/01 - 10/03. Stopped on 10/05. (12) Parkinson disease: Plan: Has resting tremor in arm and jaw. - Continue on Sinemet & mirtazapine when willing to take them -> Due to ongoing fatigue, lowered her home mirtazapine to 15 mg HS on 10/02. (13) Presence of cardiac pacemaker: Plan: Noted (14) Presence of Watchman left atrial appendage closure device: Plan: Noted (15) DVT prophylaxis: Plan: Lovenox was initially ordered, but she refused. - Continue XU alvarado Plan: Dispo-now planning on SNF placement as is improving but needs strengthening before can go home with home health as she lives alone with no caregivers at nighttime - with possible transition to hospice if she declines again CM aware of SNF referrals needed, awaiting bed at [facility] early next week continue daily PT/OT please Admission and Anticipated Discharge Date Admission Date: September 27, 2021 Subjective Pt back to refusing food, refusing medications. States "I feel terrible," but denies pain except right hand where there is a pressure wrap from a blood draw. Denies SOB, nausea, ches tpain, SOB, or abd pain. No diarrhea. No fevers, vitals normal except mildly elevated BP. Just says she feels tired and wants her covers pulled up all the way. Review of Systems Review of Systems: All systems reviewed & are unremarkable except as noted in HPI & below Physical Exam Constitutional: + frail appearing and cooperative Eyes: + eyelid abnormality (bilat lid lag) and + anicteric sclerae Neck: trachea midline, no thyromegaly Respiratory: normal respiratory effort, lungs clear to auscultation Cardiovascular: RRR, no murmur, no edema Chest (Breasts): Chest: normal inspection of chest Gastrointestinal (Abdomen): normal bowel sounds, soft, nontender, no hepatosplenomegaly Musculoskeletal: Extremities: extremities normal to inspection; no cyanosis and no clubbing was able to pull her self up to sit forward in bed from lying Skin: no rashes, warm and dry Neurologic: moves all extremities and awake; no focal motor deficits Psychiatric: Orientation: alert, oriented x 3 and cooperative Affect: + flat affect Lymphatic: no lymphedema Results & Data Results & Data ([facility]) Vital Signs (Past 12 Hours) Vital Signs Temp Pulse Resp BP BP Pulse Ox 10/13/21 07:44 36.6 C 61 16 158/74 H 98 10/12/21 22:52 36.7 C 61 14 121/72 96 PG Care Time/CCT Total # of Minutes Spent Total Time Spent with Patient: Total time spent is greater than 50% in coordination of care (as documented) at patient's floor/unit and/or counseling patient: Coding Level of Care Code 63603 Subseq Hosp Care Lvl 2 Diagnoses Encephalopathy G93.40 Acute diverticulitis K57.92 COVID-19 virus infection U07.1 A-fib I48.91 Atrial fibrillation type: unspecified Hypertension I10 Hypokalemia E87.6 Hypophosphatemia E83.39 Hypomagnesemia E83.42 Elevated troponin I level R77.8 GERD (gastroesophageal reflux disease) K21.9 Mood disorder F39 Parkinson disease G20 Presence of cardiac pacemaker Z95.0 Presence of Watchman left atrial appendage closure device Z95.818 DVT prophylaxis Z29.9 (1) A-fib Atrial fibrillation type: unspecified Qualified Code(s): I48.91 - Unspecified atrial fibrillation
[2021-10-13] MEDS: FAMOTIDINE 20 MG in SYRINGE 3 ML IV SCH ×2 (12:38→21:39)
[2021-10-13] MEDS: MIRTAZAPINE TAB 15 MG TAB PO SCH (21:40)
[2021-10-14 06:44] LABS: Albumin Globulin Ratio 1.2 (0.9-2); Albumin Level 2.8 gm/dl (3.4-5.0); BUN Creatinine Ratio 9.5 (10-20); Bilirubin,Total 0.9 mg/dl (0.2-1.0); Creatinine Clr Calc Pharmacy 40.6 ml/min; Est GFR (African American) 83.8 ml/min; Est GFR (Non-African American) 72.3 ml/min; Globulin 2.4 gm/dl (2.5-4.0); Magnesium 1.7 mg/dl (1.7-2.4); Phosphorus 2.4 mg/dl (2.5-4.9); Total Protein 5.2 gm/dl (6.0-8.3)
[2021-10-14] MEDS: CARBIDOPA/LEVODOPA 25/100MG EXT REL TAB PO SCH ×3 (09:53→17:13)
[2021-10-14] MEDS: ASPIRIN 81 MG ECTAB PO SCH (09:53)
[2021-10-14] MEDS: SACCHAROMYCES BOULARDII 250 MG CAP PO SCH (09:56)
[2021-10-14] MEDS: amLODIPine BESYLATE 5 MG TAB PO SCH (09:56)
[2021-10-14] MEDS: PANTOprazole 40 MG TAB PO SCH (09:56)
[2021-10-14] MEDS: METOPROLOL SUCC 25MG EXT REL TAB PO SCH (09:57)
[2021-10-14] MEDS: ATORVASTATIN 10 MG TAB PO SCH (09:58)
[2021-10-14] MEDS: D5W AND LACTATED RINGERS 1,000 ML IV SCH ×2 (10:45→23:00)
[2021-10-14] MEDS: THIAMINE HCL 200 MG in SODIUM CHLORIDE 0.9% 50 ML IV SCH (10:47)
[2021-10-14] MEDS: FAMOTIDINE 20 MG in SYRINGE 3 ML IV SCH ×2 (10:49→20:58)
[2021-10-14] MEDS ORDERED: POTASSIUM PHOS 3 MMOL/1 ML INFUSION IV STA (15:43)
[2021-10-14] MEDS ORDERED: POTASSIUM CHLORIDE CRTAB 20 MEQ TABCR PO STA (15:43)
--- NOTE | 2021-10-14 15:58 | Hospitalist Progress Note ---
Date of Service October 14, 2021 Assessment & Plan (1) Encephalopathy: Plan: Patient presents with acute encephalopathy with a baseline history of memory impairment from her Parkinson's disease. Likely secondary to metabolic encephalopathy from acute COVID infection associate with fever and from acute diverticulitis. - Significantly improved on Sunday (09/30) - much more conversational, is out of bed and ambulating, oriented x3, and smiling at times. -since then, she continued to be awake and alert, but still refusing to eat or drink pretty much anything. No pain or nausea, just reports loss of appetite. I tried to offer other foods or to have her niece bring in food, but she says no to these options. -Finally, after a visit from her nephew on 10/10, her spirits are lifted a bit and she is willing to eat a little bit of chicken noodle soup Discussed with niece on phone on three occasions on 10/09.. She then had a Zoom call with pt and sees how withdrawn and ill her Aunt appears and wants to work towards getting her home as soon as possible once caregivers arranged. On 10/11, seems to be more awake and alert, but still had zero appetite and not eating or drinking anything She then had a visit from her niece on the evening of 10/11 and ate Taco Lovell! Was transferred off COVID unit and now in much better spirits, appetite improving, and participated with PT on 10/12 on 10/13, back to being fatigued, refusing all meds and food, no focal deficits, no acute symptoms, but in the evening her niece visited and again brought Taco Lovell and she ate it all. 10/14 eating small amounts, OOB and ambulates to bathroom, still lethargic at times, but is taking pills -Continue maintenance fluids with D5 LR until able to take more p.o. adequately -continue to replace lytes as needed-potassium, phos, mag -started IV thiamine daily on 10/09-will continue -Appreciate dietary input -continue supportive care -Plan now for rehab at [facility] when bed available next week (2) Acute diverticulitis: Plan: Acute sigmoid diverticulitis-now resolved - completed course of Zosyn for 10-day course had some diarrhea--> now resolved-C. difficile never checked as diarrhea resolved started FLorastor (3) COVID-19 virus infection: Plan: With acute respiratory failure with hypoxia-now resolved after 1 to 2 days on 2 L nasal cannula. 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 Vaccinated: No Biggest issue is really poor appetite, not taking PO much at all as above but now slowly improving POx was< 94% and was requiring 2LNC --> started Dexamethasone and remdesivir, but then discotninued after a few days due to hallucinations thought to be from steroids Now on room air as of 09/29. Has no cough, no respiratory symptoms, no fevers Now, off Covid precautions on 10/10 (4) A-fib: Plan: Patient remains in rate-controlled atrial fibrillation she is on metoprolol 25 she does not appear to be chronically anticoagulated due to Watchman device. - Last echocardiogram performed in 2020 shows preserved ejection fraction with moderate mitral regurgitation. -brief tachycardia on 10/08, most mostly rate controlled transferred off tele (5) Hypertension: Plan: BPs elevated at times when refuses to take her meds - Continue metoprolol and amlodipine if she is willing to take them (6) Hypokalemia: Plan: Severely low, secondary to poor p.o. intake Replaced with IV potassium again today Replaced IV magnesium again today Follow BMP and magnesium (7) Hypophosphatemia: Plan: still mildly low replace with OV phos follow level in AM and watch for refeeding syndrome (8) Hypomagnesemia: Plan: As above, replaced with IV magnesium sulfate Follow magnesium level in the morning (9) Elevated troponin I level: Plan: Mild elevation and trended back downward, no acute ischemia on ECG and no chest pain. Myocardial demand ischemia. (10) GERD (gastroesophageal reflux disease): Plan: - Continue Protonix -added on IV Pepcid 20mg bid for worsening appetite again and was refusing taking po PPI (11) Mood disorder: Plan: Unknown diagnosis. - Continue mirtazapine (lower dose due to daytime somnolence) - Also on gabapentin - unclear reason -> Lowered frequency as well to HS as she had a lot of daytime somnolence from 10/01 - 10/03. Stopped on 10/05. (12) Parkinson disease: Plan: Has resting tremor in arm and jaw. - Continue on Sinemet & mirtazapine when willing to take them -> Due to ongoing fatigue, lowered her home mirtazapine to 15 mg HS on 10/02. (13) Presence of cardiac pacemaker: Plan: Noted (14) Presence of Watchman left atrial appendage closure device: Plan: Noted (15) DVT prophylaxis: Plan: Lovenox was initially ordered, but she refused. - Continue XU alvarado Plan: Dispo-now planning on SNF placement as is improving but needs strengthening before can go home - with possible transition to hospice if she declines again CM aware of SNF referrals needed, awaiting bed at [facility] early next week continue daily PT/OT please Admission and Anticipated Discharge Date Admission Date: September 27, 2021 Subjective Pt was OOB to the bathroom today and took pills, ate a little bit as per RN. When I saw her in afternoon, she was sleeping soundly and would barely wake up. Did say she was tired and had no other complaints. Her niece visited last night and again brought her a taco and she ate the whole thing! Review of Systems Review of Systems: All systems reviewed & are unremarkable except as noted in HPI & below Physical Exam Constitutional: + frail appearing and cooperative Eyes: + eyelid abnormality (bilat lid lag) and + anicteric sclerae Neck: trachea midline, no thyromegaly Respiratory: normal respiratory effort, lungs clear to auscultation Cardiovascular: RRR, no murmur, no edema Chest (Breasts): Chest: normal inspection of chest Gastrointestinal (Abdomen): normal bowel sounds, soft, nontender, no hepatosplenomegaly Musculoskeletal: Extremities: extremities normal to inspection; no cyanosis and no clubbing Skin: no rashes, warm and dry Neurologic: moves all extremities; no focal motor deficits Psychiatric: Affect: + flat affect Lymphatic: no lymphedema Results & Data Results & [facility] ([facility]) Vital Signs (Past 12 Hours) Vital Signs Temp Pulse Resp BP Pulse Ox 10/14/21 13:57 36.8 C 59 L 16 124/63 96 10/14/21 07:35 36.8 C 71 16 180/69 H 95 Laboratory Results 10/12/21 08:21 10/14/21 06:01 PG Care Time/CCT Total # of Minutes Spent Total Time Spent with Patient: Total time spent is greater than 50% in coordination of care (as documented) at patient's floor/unit and/or counseling patient: Coding Level of Care Code 46361 Subseq Hosp Care Lvl 2 Diagnoses Encephalopathy G93.40 Acute diverticulitis K57.92 COVID-19 virus infection U07.1 A-fib I48.91 Atrial fibrillation type: unspecified Hypertension I10 Hypokalemia E87.6 Hypophosphatemia E83.39 Hypomagnesemia E83.42 Elevated troponin I level R77.8 GERD (gastroesophageal reflux disease) K21.9 Mood disorder F39 Parkinson disease G20 Presence of cardiac pacemaker Z95.0 Presence of Watchman left atrial appendage closure device Z95.818 DVT prophylaxis Z29.9 (1) A-fib Atrial fibrillation type: unspecified Qualified Code(s): I48.91 - Unspecified atrial fibrillation
[2021-10-14] MEDS ORDERED: POTASSIUM PHOSPHATE 21 MMOL in SODIUM CHLORIDE 0.9% 500 ML IV ONE (16:00)
[2021-10-14] MEDS ORDERED: MAGNESIUM SULFATE / D5W 1 GM/100 ML BAG IV ONE (16:15)
[2021-10-14] MEDS: MIRTAZAPINE TAB 15 MG TAB PO SCH (20:58)
[2021-10-15 06:23] LABS: BUN Creatinine Ratio 7.6 (10-20); Calcium 8.6 mg/dl (8.5-10.1); Creatinine Clr Calc Pharmacy 45.6 ml/min; Est GFR (African American) 91.4 ml/min; Est GFR (Non-African American) 78.9 ml/min; Magnesium 1.8 mg/dl (1.7-2.4); Phosphorus 3.3 mg/dl (2.5-4.9); Potassium 3.6 mmol/L (3.5-5.1)
[2021-10-15] MEDS: amLODIPine BESYLATE 5 MG TAB PO SCH (07:56)
[2021-10-15] MEDS: CARBIDOPA/LEVODOPA 25/100MG EXT REL TAB PO SCH ×3 (07:56→16:37)
[2021-10-15] MEDS: METOPROLOL SUCC 25MG EXT REL TAB PO SCH (07:57)
[2021-10-15] MEDS: ASPIRIN 81 MG ECTAB PO SCH (07:57)
[2021-10-15] MEDS: SACCHAROMYCES BOULARDII 250 MG CAP PO SCH (07:58)
[2021-10-15] MEDS: PANTOprazole 40 MG TAB PO SCH (07:58)
[2021-10-15] MEDS: FAMOTIDINE 20 MG in SYRINGE 3 ML IV SCH ×2 (08:11→21:16)
[2021-10-15] MEDS: THIAMINE HCL 200 MG in SODIUM CHLORIDE 0.9% 50 ML IV SCH (08:11)
[2021-10-15] MEDS: ATORVASTATIN 10 MG TAB PO SCH (08:59)
[2021-10-15] MEDS: D5W AND LACTATED RINGERS 1,000 ML IV SCH (11:36)
--- NOTE | 2021-10-15 15:55 | Hospitalist Progress Note ---
Date of Service October 15, 2021 Assessment & Plan (1) Encephalopathy: Plan: Patient presents with acute encephalopathy with a baseline history of memory impairment from her Parkinson's disease. Likely secondary to metabolic encephalopathy from acute COVID infection associate with fever and from acute diverticulitis. about 10 days of waxing and waning mental status, would not eat or drink, not taking pills consistently markedly improved with family visits, having food brought in from home today she is alert and pleasant, cooperative, ate some Taco Lovell again that family brought in for her -Continue maintenance fluids with D5 LR until able to take more p.o. adequately, might consider stopping tomorrow if she eats well again -continue to replace lytes as needed-potassium, phos, mag all stable today -started IV thiamine daily on 10/09-will continue -Appreciate dietary input -continue supportive care -Plan now for rehab at [facility] when bed available next week (2) Acute diverticulitis: Plan: Acute sigmoid diverticulitis-now resolved - completed course of Zosyn for 10-day course had some diarrhea--> now resolved-C. difficile never checked as diarrhea resolved started FLorastor (3) COVID-19 virus infection: Plan: With acute respiratory failure with hypoxia-now resolved after 1 to 2 days on 2 L nasal cannula. 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 Vaccinated: No Biggest issue is really poor appetite, not taking PO much at all as above but now slowly improving POx was< 94% and was requiring 2LNC --> started Dexamethasone and remdesivir, but then discotninued after a few days due to hallucinations thought to be from steroids Now on room air as of 09/29. Has no cough, no respiratory symptoms, no fevers Now, off Covid precautions on 10/10 (4) A-fib: Plan: Patient remains in rate-controlled atrial fibrillation she is on metoprolol 25 she does not appear to be chronically anticoagulated due to Watchman device. - Last echocardiogram performed in 2020 shows preserved ejection fraction with moderate mitral regurgitation. -brief tachycardia on 10/08, most mostly rate controlled transferred off tele (5) Hypertension: Plan: BPs elevated at times when refuses to take her meds - Continue metoprolol and amlodipine if she is willing to take them (6) Hypokalemia: Plan: Severely low, secondary to poor p.o. intake Replaced with IV potassium on 10/14, stable today repeat tomorrow (7) Hypophosphatemia: Plan: still mildly low replace with IV phos follow level in AM and watch for refeeding syndrome (8) Hypomagnesemia: Plan: stable today, repeat tomorrow (9) Elevated troponin I level: Plan: Mild elevation and trended back downward, no acute ischemia on ECG and no chest pain. Myocardial demand ischemia. (10) GERD (gastroesophageal reflux disease): Plan: - Continue Protonix -added on IV Pepcid 20mg bid for worsening appetite again and was refusing taking po PPI (11) Mood disorder: Plan: Unknown diagnosis. - Continue mirtazapine (lower dose due to daytime somnolence) - Also on gabapentin - unclear reason -> Lowered frequency as well to HS as she had a lot of daytime somnolence from 10/01 - 10/03. Stopped on 10/05. (12) Parkinson disease: Plan: Has resting tremor in arm and jaw. - Continue on Sinemet & mirtazapine when willing to take them -> Due to ongoing fatigue, lowered her home mirtazapine to 15 mg HS on 10/02. (13) Presence of cardiac pacemaker: Plan: Noted (14) Presence of Watchman left atrial appendage closure device: Plan: Noted (15) DVT prophylaxis: Plan: Lovenox was initially ordered, but she refused. - Continue XU hose Plan: Dispo-now planning on SNF placement as is improving but needs strengthening before can go home - with possible transition to hospice if she declines again CM aware of SNF referrals needed, awaiting bed at [facility] early next week continue daily PT/OT please Admission and Anticipated Discharge Date Admission Date: September 27, 2021 Subjective patient is alert, oriented to self, she is pleasant and cooperative she again ate some Taco Lovell that family brought in for her she denies any pain, fever, nausea, dyspnea, chest pain/pressure we discussed that she has been in the hospital for 18 days, working on rehab at [facility] reviewed chart and labs Review of Systems Review of Systems: All systems reviewed & are unremarkable except as noted in Subjective Physical Exam Physical Exam: General: well developed, thin frail elderly female, no distress Neck: supple, trachea midline, normal thyroid Lungs: clear to auscultation bilaterally, normal respiratory effort, no accessory muscle use, no distress Heart: regular S1 and S2, no murmur, peripheral pulses normal, capillary refill normal, no edema Abdomen: soft, NT, ND, + BS, no hepatomegaly, normal to percussion Extremities: normal in appearance, no cyanosis, no petechiae, strength is slightly diminished Neuro: awake, cooperative, moves all extremities, no focal motor deficits, CN II-XII intact, sensation in extremities intact, normal speech Skin: warm, dry, no rash, normal turgor Psych: Awake, alert oriented to person and place Results & Data Results & Data ([facility]) Vital Signs (Past 12 Hours) Vital Signs Temp Pulse Resp BP Pulse Ox Pulse Ox 10/15/21 14:59 36.6 C 65 16 154/73 H 92 10/15/21 11:49 97 10/15/21 07:25 36.4 C L 71 18 173/77 H 96 Laboratory Results Laboratory Results - last 24 hr 10/15/21 05:47 Sodium 144 Potassium 3.6 Chloride 110 H Carbon Dioxide 27 Anion Gap 7 BUN 5 L Creatinine 0.66 Est Cr Clr Drug Dosing 45.6 Est GFR ( Amer) 91.4 Est GFR (Non-Af Amer) 78.9 BUN/Creatinine Ratio 7.6 L Glucose 107 H Calcium 8.6 Phosphorus 3.3 Magnesium 1.8 Medications Administered Current Inpatient Medications Acetaminophen (Acetaminophen 325 Mg Tab) 650 mg PO Q4H PRN PRN Reason: Pain or Fever Stop: 10/27/21 18:05 Last Admin: 10/14/21 09:53 Dose: 650 mg Documented by: Al Hydrox/Mg Hydrox/Simethicone (Aluminum/Magnesium Susp 30 Ml Udc) 15 ml PO Q4H PRN PRN Reason: Dyspepsia Stop: 10/27/21 18:05 Amlodipine Besylate (Amlodipine Besylate 5 Mg Tab) 2.5 mg PO DAILY [facility] Stop: 10/29/21 08:59 Last Admin: 10/15/21 07:56 Dose: 2.5 mg Documented by: Aspirin (Aspirin 81 Mg Ectab) [facility] [place]: 10/28/21 08:59 Last Admin: 10/15/21 07:57 Dose: 81 mg Documented by: Atorvastatin Calcium (Atorvastatin 10 Mg Tab) [facility] Stop: 10/28/21 08:59 Last Admin: 10/15/21 08:59 Dose: 10 mg Documented by: Carbidopa/Levodopa (Carbidopa/Levodopa 25/100mg Ext Rel Tab) 1 tab PO TID@0800,1200,1600 [facility] Stop: 10/27/21 18:59 Last Admin: 10/15/21 12:39 Dose: 1 tab Documented by: Dextrose/Lactated Ringer's (D5w And Lactated Ringers) 1,000 mls @ 80 mls/hr IV .[id number] [facility] Stop: 11/08/21 16:14 Last Admin: 10/15/21 11:36 Dose: 80 mls/hr Documented by: Thiamine HCl 200 mg/ Sodium (Chloride) 52 mls @ 208 mls/hr IV QAM [facility] Stop: 11/09/21 15:29 Last Infusion: 10/15/21 08:26 Dose: Infused Documented by: Famotidine 20 mg/ Syringe 5 mls @ 2.5 mls/min IV BID [facility] Stop: 11/12/21 10:14 Last Admin: 10/15/21 08:11 Dose: 2.5 mls/min Documented by: Metoprolol Succinate (Metoprolol Succ 25mg Ext Rel Tab) 25 mg PO DAILY [facility] Stop: 10/28/21 08:59 Last Admin: 10/15/21 07:57 Dose: 25 mg Documented by: Mirtazapine (Mirtazapine Tab 15 Mg Tab) 15 mg PO HS [facility] Stop: 11/01/21 20:59 Last Admin: 10/14/21 20:58 Dose: 15 mg Documented by: Ondansetron HCl (Ondansetron Inj 2 Mg/Ml 2 Ml Vial) 4 mg IV Q6H PRN PRN Reason: Nausea Stop: 10/27/21 18:05 Pantoprazole Sodium (Pantoprazole 40 Mg Tab) [facility] Stop: 10/28/21 08:59 Last Admin: 10/15/21 07:58 Dose: 40 mg Documented by: Saccharomyces Boulardii (Saccharomyces Boulardii 250 Mg Cap) 250 mg PO DAILY [facility] Stop: 11/07/21 14:44 Last Admin: 10/15/21 07:58 Dose: 250 mg Documented by: PG Care Time/CCT Total # of Minutes Spent Total Time Spent with Patient: Total time spent is greater than 50% in coordination of care (as documented) at patient's floor/unit and/or counseling patient: Coding Level of Care Code 69157 Subseq Hosp Care Lvl 2 Diagnoses Encephalopathy G93.40 Acute diverticulitis K57.92 COVID-19 virus infection U07.1 A-fib I48.91 Atrial fibrillation type: unspecified Hypertension I10 Hypokalemia E87.6 Hypophosphatemia E83.39 Hypomagnesemia E83.42 Elevated troponin I level R77.8 GERD (gastroesophageal reflux disease) K21.9 Mood disorder F39 Parkinson disease G20 Presence of cardiac pacemaker Z95.0 Presence of Watchman left atrial appendage closure device Z95.818 DVT prophylaxis Z29.9 (1) A-fib Atrial fibrillation type: unspecified Qualified Code(s): I48.91 - Unspecified atrial fibrillation
[2021-10-15] MEDS: MIRTAZAPINE TAB 15 MG TAB PO SCH (21:16)
[2021-10-16] MEDS: D5W AND LACTATED RINGERS 1,000 ML IV SCH (04:07)
[2021-10-16 07:16] LABS: Potassium 3.3 mmol/L (3.5-5.1)
[2021-10-16 07:20] LABS: BUN Creatinine Ratio 5.3 (10-20); Calcium 8.6 mg/dl (8.5-10.1); Creatinine Clr Calc Pharmacy 39.6 ml/min; Est GFR (African American) 81.2 ml/min; Magnesium 1.7 mg/dl (1.7-2.4)
[2021-10-16] MEDS ORDERED: MAGNESIUM SULFATE / D5W 1 GM/100 ML BAG IV ONE (09:00)
[2021-10-16] MEDS: CARBIDOPA/LEVODOPA 25/100MG EXT REL TAB PO SCH ×5 (09:30→17:08)
[2021-10-16] MEDS: SACCHAROMYCES BOULARDII 250 MG CAP PO SCH (09:31)
[2021-10-16] MEDS: amLODIPine BESYLATE 5 MG TAB PO SCH (09:31)
[2021-10-16] MEDS: ATORVASTATIN 10 MG TAB PO SCH (09:31)
[2021-10-16] MEDS: METOPROLOL SUCC 25MG EXT REL TAB PO SCH (09:31)
[2021-10-16] MEDS: PANTOprazole 40 MG TAB PO SCH (09:31)
[2021-10-16] MEDS: ASPIRIN 81 MG ECTAB PO SCH (09:32)
[2021-10-16] MEDS: FAMOTIDINE 20 MG in SYRINGE 3 ML IV SCH ×2 (09:37→20:20)
[2021-10-16] MEDS: THIAMINE HCL 200 MG in SODIUM CHLORIDE 0.9% 50 ML IV SCH (09:37)
[2021-10-16] MEDS: POTASSIUM CHLORIDE 10 MEQ TABCR PO SCH ×2 (09:38→20:24)
--- NOTE | 2021-10-16 12:40 | Hospitalist Progress Note ---
Date of Service October 16, 2021 Assessment & Plan (1) Encephalopathy: Plan: Patient presents with acute encephalopathy with a baseline history of memory impairment from her Parkinson's disease. Likely secondary to metabolic encephalopathy from acute COVID infection associate with fever and from acute diverticulitis. about 12 days of waxing and waning mental status, would not eat or drink, not taking pills consistently markedly improved with family visits, having food brought in from home was good on 10/15, ate [employer], family came in was lethargic and unresponsive on 10/16, did not eat or drink anything, did not take medications resume D5W 09/18 NSS at 80cc/hr -continue to replace lytes as needed-potassium and magnesium low today -started IV thiamine daily on 10/09-will continue -Appreciate dietary input -continue supportive care -Plan now for rehab at [facility] when bed available next week will need to discuss goals with family, perhaps hospice would be most realistic since her mental status is so inconsistent (2) Acute diverticulitis: Plan: Acute sigmoid diverticulitis-now resolved - completed course of Zosyn for 10-day course had some diarrhea--> now resolved-C. difficile never checked as diarrhea resolved started FLorastor (3) COVID-19 virus infection: Plan: With acute respiratory failure with hypoxia-now resolved after 1 to 2 days on 2 L nasal cannula. Was feeling ill for 5 days [employer]. First tested positive in our system 09/27/2021. Vaccinated: No Biggest issue is really poor appetite, not taking PO much at all as above but now slowly improving POx was< 94% and was requiring 2LNC --> started Dexamethasone and remdesivir, but then discotninued after a few days due to hallucinations thought to be from steroids Now on room air as of 09/29. Has no cough, no respiratory symptoms, no fevers Now, off Covid precautions on 10/10 remains stable on room air, no fever (4) A-fib: Plan: Patient remains in rate-controlled atrial fibrillation she is on metoprolol 25 she does not appear to be chronically anticoagulated due to Watchman device. - Last echocardiogram performed in 2020 shows preserved ejection fraction with moderate mitral regurgitation. -brief tachycardia on 10/08, most mostly rate controlled transferred off tele issues with her not taking metoprolol consistently (5) Hypertension: Plan: BPs elevated at times when refuses to take her meds - Continue metoprolol and amlodipine if she is willing to take them (6) Hypokalemia: Plan: 3.3 today, ordered PO replacement but she refused, would not wake up give IV replacement tomorrow if still low (7) Hypophosphatemia: Plan: monitor (8) Hypomagnesemia: Plan: 1.7, give 1gm IV mag (9) Elevated troponin I level: Plan: Mild elevation and trended back downward, no acute ischemia on ECG and no chest pain. Myocardial demand ischemia. (10) GERD (gastroesophageal reflux disease): Plan: - Continue Protonix -added on IV Pepcid 20mg bid for worsening appetite again and was refusing taking po PPI (11) Mood disorder: Plan: Unknown diagnosis. - Continue mirtazapine (lower dose due to daytime somnolence) - Also on gabapentin - unclear reason -> Lowered frequency as well to HS as she had a lot of daytime somnolence from 10/01 - 10/03. Stopped on 10/05. (12) Parkinson disease: Plan: Has resting tremor in arm and jaw. - Continue on Sinemet & mirtazapine when willing to take them -> Due to ongoing fatigue, lowered her home mirtazapine to 15 mg HS on 10/02. (13) Presence of cardiac pacemaker: Plan: Noted (14) Presence of Watchman left atrial appendage closure device: Plan: Noted (15) DVT prophylaxis: Plan: Lovenox was initially ordered, but she refused. - Continue XU alvarado Plan: Dispo-now planning on SNF placement as is improving but needs strengthening before can go home - with possible transition to hospice if she declines again CM aware of SNF referrals needed, awaiting bed at [facility] early next week continue daily PT/OT please will need to speak with family about hospice again, realistic goals, at least a POLST form so we know if family would want her to return to the hospital after discharge Admission and Anticipated Discharge Date Admission Date: September 27, 2021 Subjective patient lethargic all day, much worse than the day before when she was awake, would try to answer questions per RN, she would not take her pills, would not eat or drink anything all day will resume IV fluids since she is not eating Review of Systems Review of Systems: Unobtainable due to cognitive status Physical Exam Physical Exam: General: well developed, thin frail elderly female, no distress Neck: supple, trachea midline, normal thyroid Lungs: clear to auscultation bilaterally, normal respiratory effort, no accessory muscle use, no distress Heart: regular S1 and S2, no murmur, peripheral pulses normal, capillary refill normal, no edema Abdomen: soft, NT, ND, + BS, no hepatomegaly, normal to percussion Extremities: normal in appearance, no cyanosis, no petechiae, strength is slightly diminished Neuro: lethargic, no focal motor deficits, CN II-XII intact Skin: warm, dry, no rash, normal turgor Psych: lethargic, will not wake up Results & Data Results & Data ([facility]) Vital Signs (Past 12 Hours) Vital Signs Temp Pulse Resp BP Pulse Ox 10/16/21 07:29 37.0 C 66 16 149/68 H 99 Laboratory Results Laboratory Results - last 24 hr 10/16/21 05:24 Sodium 140 Potassium 3.3 L Chloride 104 Carbon Dioxide 30 Anion Gap 6 BUN 4 L Creatinine 0.76 Est Cr Clr Drug Dosing 39.6 Est GFR ( Amer) 81.2 Est GFR (Non-Af Amer) 70.0 BUN/Creatinine Ratio 5.3 L Glucose 101 H Calcium 8.6 Phosphorus 3.0 Magnesium 1.7 Medications Administered Current Inpatient Medications Acetaminophen (Acetaminophen 325 Mg Tab) 650 mg PO Q4H PRN PRN Reason: Pain or Fever Stop: 10/27/21 18:05 Last Admin: 10/14/21 09:53 Dose: 650 mg Documented by: Al Hydrox/Mg Hydrox/Simethicone (Aluminum/Magnesium Susp 30 Ml Udc) 15 ml PO Q4H PRN PRN Reason: Dyspepsia Stop: 10/27/21 18:05 Amlodipine Besylate (Amlodipine Besylate 5 Mg Tab) 2.5 mg PO DAILY [facility] Stop: 10/29/21 08:59 Last Admin: 10/16/21 09:31 Dose: 2.5 mg Documented by: Aspirin (Aspirin 81 Mg Ectab) 81 mg PO QAM [facility] Stop: 10/28/21 08:59 Last Admin: 10/16/21 09:32 Dose: 81 mg Documented by: Atorvastatin Calcium (Atorvastatin 10 Mg Tab) 10 mg PO QAM [facility] Stop: 10/28/21 08:59 Last Admin: 10/16/21 09:31 Dose: 10 mg Documented by: Carbidopa/Levodopa (Carbidopa/Levodopa 25/100mg Ext Rel Tab) 1 tab PO TID@0800,1200,1600 [facility] Stop: 10/27/21 18:59 Last Admin: 10/16/21 09:30 Dose: 1 tab Documented by: Thiamine HCl 200 mg/ Sodium (Chloride) 52 mls @ 208 mls/hr IV QAM [facility] Stop: 11/09/21 15:29 Last Infusion: 10/16/21 09:57 Dose: Infused Documented by: Famotidine 20 mg/ Syringe 5 mls @ 2.5 mls/min IV BID [facility] Stop: 11/12/21 10:14 Last Admin: 10/16/21 09:37 Dose: 2.5 mls/min Documented by: Metoprolol Succinate (Metoprolol Succ 25mg Ext Rel Tab) 25 mg PO DAILY [facility] Stop: 10/28/21 08:59 Last Admin: 10/16/21 09:31 Dose: 25 mg Documented by: Mirtazapine (Mirtazapine Tab 15 Mg Tab) 15 mg PO HS [facility] Stop: 11/01/21 20:59 Last Admin: 10/15/21 21:16 Dose: 15 mg Documented by: Ondansetron HCl (Ondansetron Inj 2 Mg/Ml 2 Ml Vial) 4 mg IV Q6H PRN PRN Reason: Nausea Stop: 10/27/21 18:05 Pantoprazole Sodium (Pantoprazole 40 Mg Tab) 40 mg PO QAM [facility] Stop: 10/28/21 08:59 Last Admin: 10/16/21 09:31 Dose: 40 mg Documented by: Potassium Chloride (Potassium Chloride 10 Meq Tabcr) 10 meq PO BID [facility] Stop: 11/15/21 08:59 Last Admin: 10/16/21 09:38 Dose: 10 meq Documented by: Saccharomyces Boulardii (Saccharomyces Boulardii 250 Mg Cap) 250 mg PO DAILY [facility] Stop: 11/07/21 14:44 Last Admin: 10/16/21 09:31 Dose: 250 mg Documented by: PG Care Time/CCT Total # of Minutes Spent Total Time Spent with Patient: Total time spent is greater than 50% in coordination of care (as documented) at patient's floor/unit and/or counseling patient: Coding Level of Care Code 76365 Subseq Hosp Care Lvl 3 Diagnoses Encephalopathy G93.40 Acute diverticulitis K57.92 COVID-19 virus infection U07.1 A-fib I48.91 Atrial fibrillation type: unspecified Hypertension I10 Hypokalemia E87.6 Hypophosphatemia E83.39 Hypomagnesemia E83.42 Elevated troponin I level R77.8 GERD (gastroesophageal reflux disease) K21.9 Mood disorder F39 Parkinson disease G20 Presence of cardiac pacemaker Z95.0 Presence of Watchman left atrial appendage closure device Z95.818 DVT prophylaxis Z29.9 (1) A-fib Atrial fibrillation type: unspecified Qualified Code(s): I48.91 - Unspecified atrial fibrillation
[2021-10-16] MEDS: D5W AND 1/2NSS 1,000 ML IV SCH (20:20)
[2021-10-16] MEDS: MIRTAZAPINE TAB 15 MG TAB PO SCH (20:24)
[2021-10-16] MEDS ORDERED: ACETAMINOPHEN 10MG/ML PEDIATRIC DOSING IV STA (22:31)
[2021-10-16] MEDS ORDERED: ACETAMINOPHEN IV ONE (22:45)
[2021-10-16] MEDS ORDERED: ACETAMINOPHEN 50 ML IV ONE (23:00)
[2021-10-17] MEDS: D5W AND 1/2NSS 1,000 ML IV SCH ×2 (09:02→21:31)
[2021-10-17] MEDS: CARBIDOPA/LEVODOPA 25/100MG EXT REL TAB PO SCH ×4 (09:03→17:36)
[2021-10-17] MEDS: amLODIPine BESYLATE 5 MG TAB PO SCH ×2 (09:03→09:22)
[2021-10-17] MEDS: ASPIRIN 81 MG ECTAB PO SCH ×2 (09:05→09:22)
[2021-10-17] MEDS: PANTOprazole 40 MG TAB PO SCH ×2 (09:06→09:21)
[2021-10-17] MEDS: SACCHAROMYCES BOULARDII 250 MG CAP PO SCH (09:06)
[2021-10-17] MEDS: POTASSIUM CHLORIDE 10 MEQ TABCR PO SCH ×3 (09:06→20:27)
[2021-10-17] MEDS: THIAMINE HCL 200 MG in SODIUM CHLORIDE 0.9% 50 ML IV SCH (09:10)
[2021-10-17] MEDS: FAMOTIDINE 20 MG in SYRINGE 3 ML IV SCH ×2 (09:11→20:26)
[2021-10-17] MEDS: ATORVASTATIN 10 MG TAB PO SCH (09:21)
[2021-10-17] MEDS: METOPROLOL SUCC 25MG EXT REL TAB PO SCH (09:21)
--- NOTE | 2021-10-17 16:24 | Hospitalist Progress Note ---
Date of Service October 17, 2021 Assessment & Plan (1) Encephalopathy: Plan: Patient presents with acute encephalopathy with a baseline history of memory impairment from her Parkinson's disease. Likely secondary to metabolic encephalopathy from acute COVID infection associate with fever and from acute diverticulitis. about 12 days of waxing and waning mental status, would not eat or drink, not taking pills consistently markedly improved with family visits, having food brought in from home was good on 10/15, ate [employer], family came in was lethargic and unresponsive on 10/16 and today, did not eat or drink anything, did not take medications resumed D5W 09/18 NSS at 80cc/hr -continue to replace lytes as needed -started IV thiamine daily on 10/09-will continue -Appreciate dietary input -continue supportive care -Plan now for rehab at [facility] when bed available next week - Did have a fever on night of 10/16 - maybe atelectasis given mostly sleeping? -- Will place UA if able to get; can consider CXR if more alert tomorrow and able to cooperate -- Labs in AM -- No further fevers today will need to discuss goals with family, perhaps hospice would be most realistic since her mental status is so inconsistent (2) Acute diverticulitis: Plan: Acute sigmoid diverticulitis-now resolved - completed course of Zosyn for 10-day course had some diarrhea--> now resolved-C. difficile never checked as diarrhea resolved started FLorastor (3) COVID-19 virus infection: Plan: With acute respiratory failure with hypoxia-now resolved after 1 to 2 days on 2 L nasal cannula. Was feeling ill for 5 days [employer]. First tested positive in our system 09/27/2021. Vaccinated: No Biggest issue is really poor appetite, not taking PO much at all as above POx was< 94% and was requiring 2LNC --> started Dexamethasone and remdesivir earlier in admission, but then discontinued after a few days due to halluci nations thought to be from steroids Remains on RA Has no cough, no respiratory symptoms Now, off Covid precautions on 10/10 (4) A-fib: Plan: Patient remains in rate-controlled atrial fibrillation she is on metoprolol 25 she does not appear to be chronically anticoagulated due to Watchman device. - Last echocardiogram performed in 2020 shows preserved ejection fraction with moderate mitral regurgitation. issues with her not taking metoprolol consistently (5) Hypertension: Plan: BPs elevated at times when refuses to take her meds - Continue metoprolol and amlodipine if she is willing to take them (6) Hypokalemia: Plan: 3.3 on 10/16, ordered PO replacement but she refused, would not wake up give IV replacement tomorrow if still low on AM labs (7) Hypophosphatemia: Plan: monitor (8) Hypomagnesemia: Plan: 1.7, given 1gm IV mag (9) Elevated troponin I level: Plan: Mild elevation and trended back downward, no acute ischemia on ECG and no chest pain. Myocardial demand ischemia. (10) GERD (gastroesophageal reflux disease): Plan: - Continue Protonix -added on IV Pepcid 20mg bid for worsening appetite again and was refusing taking po PPI (11) Mood disorder: Plan: Unknown diagnosis. - Continue mirtazapine (lower dose due to daytime somnolence) - Also on gabapentin - unclear reason -> Lowered frequency as well to HS as she had a lot of daytime somnolence from 10/01 - 10/03. Stopped on 10/05. (12) Parkinson disease: Plan: Has resting tremor in arm and jaw. - Continue on Sinemet & mirtazapine when willing to take them -> Due to ongoing fatigue, lowered her home mirtazapine to 15 mg HS on 10/02. (13) Presence of cardiac pacemaker: Plan: Noted (14) Presence of Watchman left atrial appendage closure device: Plan: Noted (15) DVT prophylaxis: Plan: Lovenox was initially ordered, but she refused. - Continue XU alvarado Plan: Dispo- planning on SNF placement as she was improving but needs strengthening before can go home - with possible transition to hospice if she declines again?? will need to speak with family about hospice again, realistic goals, at least a POLST form so we know if family would want her to return to the hospital after discharge Admission and Anticipated Discharge Date Admission Date: September 27, 2021 Subjective No acute events overnight. Remains pretty lethargic today. Ambulates to the bathroom. Refusing meds and oral intake. Multiple checks today and mostly just sleeping. Review of Systems Review of Systems: Unobtainable due to cognitive status Physical Exam Physical Exam: PHYSICAL EXAM General Appearance: Thin/Frail elderly woman in NAD HEENT: Head is normocephalic/atraumatic Neck: Supple; Trachea midline; Neg JVD Heart: RRR with no M/G/R Lungs: CTA in all lung donohue bilaterally; Respirations unlabored; Neg accessory muscle use Abdomen: Soft, non-tender, non-distended; Positive BS x 4 quadrants Extremities: Neg cyanosis or edema Neurological: Sleeping Psychiatric: Sleeping Skin: Normal Color; Warm/Dry Results & Data Results & Data ([facility]) Vital Signs (Past 12 Hours) Vital Signs Temp Pulse Resp BP Pulse Ox 10/17/21 15:06 36.6 C 77 16 146/74 H 97 10/17/21 07:20 36.8 C 84 16 121/74 94 10/17/21 06:07 36.7 C PG Care Time/CCT Total # of Minutes Spent Total Time Spent with Patient: Total time spent is greater than 50% in coordination of care (as documented) at patient's floor/unit and/or counseling patient: Coding Level of Care Code 72376 Subseq Hosp Care Lvl 3 Diagnoses Encephalopathy G93.40 Acute diverticulitis K57.92 COVID-19 virus infection U07.1 A-fib I48.91 Atrial fibrillation type: unspecified Hypertension I10 Hypokalemia E87.6 Hypophosphatemia E83.39 Hypomagnesemia E83.42 Elevated troponin I level R77.8 GERD (gastroesophageal reflux disease) K21.9 Mood disorder F39 Parkinson disease G20 Presence of cardiac pacemaker Z95.0 Presence of Watchman left atrial appendage closure device Z95.818 DVT prophylaxis Z29.9 (1) A-fib Atrial fibrillation type: unspecified Qualified Code(s): I48.91 - Unspecified atrial fibrillation
[2021-10-17] MEDS: MIRTAZAPINE TAB 15 MG TAB PO SCH (20:26)
[2021-10-18 07:11] LABS: Appearance Urine Cloudy (Clear); Bilirubin Urine Negative (Negative); Blood Urine 3+ (Negative); Color Urine Yellow; Glucose Urine UA Negative (Negative); Ketones Urine Negative (Negative); Leukocyte Esterase Urine 3+ (Negative); Nitrite Urine Negative (Negative); Protein Urine 2+ (Negative); Urobilinogen Urine Negative (Negative); pH Urine 6.5 (4.5-7.5)
[2021-10-18 08:03] LABS: Bacteria Urine 2+ (Negative); WBC Urine >30 /hpf (0-5)
[2021-10-18] MEDS: THIAMINE HCL 200 MG in SODIUM CHLORIDE 0.9% 50 ML IV SCH (08:03)
[2021-10-18] MEDS: D5W AND 1/2NSS 1,000 ML IV SCH (08:06)
[2021-10-18] MEDS: FAMOTIDINE 20 MG in SYRINGE 3 ML IV SCH ×2 (08:06→19:39)
[2021-10-18] MEDS: CARBIDOPA/LEVODOPA 25/100MG EXT REL TAB PO SCH ×4 (08:16→16:11)
[2021-10-18] MEDS: POTASSIUM CHLORIDE 10 MEQ TABCR PO SCH ×2 (08:17→19:41)
[2021-10-18] MEDS: PANTOprazole 40 MG TAB PO SCH ×2 (08:17→12:21)
[2021-10-18] MEDS: ASPIRIN 81 MG ECTAB PO SCH ×2 (08:17→12:21)
[2021-10-18] MEDS: METOPROLOL SUCC 25MG EXT REL TAB PO SCH ×2 (08:17→12:22)
[2021-10-18] MEDS: amLODIPine BESYLATE 5 MG TAB PO SCH (08:17)
[2021-10-18] MEDS: SACCHAROMYCES BOULARDII 250 MG CAP PO SCH (08:17)
[2021-10-18] MEDS: ATORVASTATIN 10 MG TAB PO SCH ×2 (08:17→12:22)
[2021-10-18] MEDS ORDERED: levoFLOXacin/D5W 500 MG/100 ML BAG IV ONE (09:30)
[2021-10-18] MEDS: MIRTAZAPINE TAB 15 MG TAB PO SCH (19:41)
--- NOTE | 2021-10-18 19:57 | Hospitalist Progress Note ---
Date of Service October 18, 2021 Assessment & Plan (1) Encephalopathy: Plan: Patient presents with acute encephalopathy with a baseline history of memory impairment from her Parkinson's disease. Likely secondary to metabolic encephalopathy from acute COVID infection associate with fever and from acute diverticulitis. waxing and waning mental status, would not eat or drink, not taking pills consistently markedly improved with family visits, having food brought in from home was good on 10/15, ate [employer], family came in was lethargic and unresponsive on 10/16 and today, did not eat or drink anything, did not take medications On 10/18 is awake, conversant, and eating very well - not sure if this is her typical trend and will be more sleepy tomorrow and will monitor Hold IVF at this time -continue to replace lytes as needed -started IV thiamine daily on 10/09-will continue -Appreciate dietary input -continue supportive care -Plan now for rehab at [facility] when bed available - if able to participate and mentation remains improved - Did have a fever on night of 10/16 - maybe atelectasis given mostly sleeping? vs from UTI -- No further fevers but UA suggestive of UTI - await UCx -- Did empirically start Levaquin Discussed with family, perhaps hospice would be most realistic since her mental status is so inconsistent especially if she does become more sleepy after today. Arash notes it seems as if after a good day she is having more sleepy days which is to be expected (2) Acute diverticulitis: Plan: Acute sigmoid diverticulitis-now resolved - completed course of Zosyn for 10-day course had some diarrhea--> now resolved-C. difficile never checked as diarrhea resolved started FLorastor (3) COVID-19 virus infection: Plan: With acute respiratory failure with hypoxia-now resolved after 1 to 2 days on 2 L nasal cannula. Was feeling ill for 5 days [employer]. First tested positive in our system 09/27/2021. Vaccinated: No Biggest issue is really poor appetite, not taking PO much at all as above POx was< 94% and was requiring 2LNC --> started Dexamethasone and remdesivir earlier in admission, but then discontinued after a few days due to hallucinations thought to be from steroids Remains on RA Has no cough, no respiratory symptoms Now, off Covid precautions on 10/10 (4) A-fib: Plan: Patient remains in rate-controlled atrial fibrillation she is on metoprolol 25 she does not appear to be chronically anticoagulated due to Watchman device. - Last echocardiogram performed in 2020 shows preserved ejection fraction with moderate mitral regurgitation. issues with her not taking metoprolol consistently (5) Hypertension: Plan: BPs elevated at times when refuses to take her meds - Continue metoprolol and amlodipine if she is willing to take them (6) Hypokalemia: Plan: Will monitor if able to take replacement (7) Hypophosphatemia: Plan: monitor (8) Hypomagnesemia: Plan: 1.7, given 1gm IV mag (9) Elevated troponin I level: Plan: Mild elevation and trended back downward, no acute ischemia on ECG and no chest pain. Myocardial demand ischemia. (10) GERD (gastroesophageal reflux disease): Plan: - Continue Protonix -added on IV Pepcid 20mg bid for worsening appetite again and was refusing taking po PPI (11) Mood disorder: Plan: Unknown diagnosis. - Continue mirtazapine (lower dose due to daytime somnolence) - Also on gabapentin - unclear reason -> Lowered frequency as well to HS as she had a lot of daytime somnolence from 10/01 - 10/03. Stopped on 10/05. (12) Parkinson disease: Plan: Has resting tremor in arm and jaw. - Continue on Sinemet & mirtazapine when willing to take them -> Due to ongoing fatigue, lowered her home mirtazapine to 15 mg HS on 10/02. (13) Presence of cardiac pacemaker: Plan: Noted (14) Presence of Watchman left atrial appendage closure device: Plan: Noted (15) DVT prophylaxis: Plan: Lovenox was initially ordered, but she refused. - Continue XU alvarado Plan: Dispo- planning on SNF placement as she was improving but needs strengthening before can go home - with possible transition to hospice if she declines again?? Discussed with Nicole at bedside today. Patient is much better in appearance today but it is hard to say if this is going to be her normal trend. Good day then many days of sleep. We will see how she is tomorrow and make a decision from there. Nicole did state the patient would not want a feeding tube or artificial feeds. Still planning to puruse rehab if she can stay like how she is today but if not hospice would be the route to pursue. Admission and Anticipated Discharge Date Admission Date: September 27, 2021 Subjective No acute events overnight. Patient is more alert today, conversant and eating. Only complains of intermittent post nasal drip that can be thick and when it drains into her throat it can make her gag. Review of Systems Review of Systems: All systems reviewed & are unremarkable except as noted in Subjective Physical Exam Physical Exam: PHYSICAL EXAM General Appearance: Thin/Frail elderly woman in NAD HEENT: Head is normocephalic/atraumatic Neck: Supple; Trachea midline; Neg JVD Heart: RRR with no M/G/R Lungs: CTA in all lung donohue bilaterally; Respirations unlabored; Neg accessory muscle use Abdomen: Soft, non-tender, non-distended; Positive BS x 4 quadrants Extremities: Neg cyanosis or edema Neurological: Awake and following commands; eating Psychiatric: Appropriate mood/affect Skin: Normal Color; Warm/Dry Results & Data Results & [facility]) Vital Signs (Past 12 Hours) Vital Signs Temp Pulse Resp BP Pulse Ox 10/18/21 15:37 36.7 C 81 16 118/64 94 PG Care Time/CCT Total # of Minutes Spent Total Time Spent with Patient: Total time spent is greater than 50% in coordination of care (as documented) at patient's floor/unit and/or counseling patient: Coding Level of Care Code 51420 Subseq Hosp Care Lvl 3 Diagnoses Encephalopathy G93.40 Acute diverticulitis K57.92 COVID-19 virus infection U07.1 A-fib I48.91 Atrial fibrillation type: unspecified Hypertension I10 Hypokalemia E87.6 Hypophosphatemia E83.39 Hypomagnesemia E83.42 Elevated troponin I level R77.8 GERD (gastroesophageal reflux disease) K21.9 Mood disorder F39 Parkinson disease G20 Presence of cardiac pacemaker Z95.0 Presence of Watchman left atrial appendage closure device Z95.818 DVT prophylaxis Z29.9 (1) A-fib Atrial fibrillation type: unspecified Qualified Code(s): I48.91 - Unspecified atrial fibrillation
[2021-10-19] MEDS: ASPIRIN 81 MG ECTAB PO SCH (08:44)
[2021-10-19] MEDS: amLODIPine BESYLATE 5 MG TAB PO SCH (08:44)
[2021-10-19] MEDS: SACCHAROMYCES BOULARDII 250 MG CAP PO SCH (08:45)
[2021-10-19] MEDS: POTASSIUM CHLORIDE 10 MEQ TABCR PO SCH ×3 (08:46→20:11)
[2021-10-19] MEDS: FAMOTIDINE 20 MG in SYRINGE 3 ML IV SCH (09:12)
[2021-10-19] MEDS: THIAMINE HCL 200 MG in SODIUM CHLORIDE 0.9% 50 ML IV SCH (09:17)
[2021-10-19] MEDS: CARBIDOPA/LEVODOPA 25/100MG EXT REL TAB PO SCH ×3 (09:26→16:40)
[2021-10-19] MEDS: PANTOprazole 40 MG TAB PO SCH (09:58)
[2021-10-19] MEDS: METOPROLOL SUCC 25MG EXT REL TAB PO SCH (09:59)
[2021-10-19] MEDS ORDERED: levoFLOXacin/D5W 250 MG/50 ML BAG IV SCH (10:00)
[2021-10-19] MEDS: ATORVASTATIN 10 MG TAB PO SCH (10:01)
--- NOTE | 2021-10-19 18:22 | Hospitalist Progress Note ---
Date of Service October 19, 2021 Assessment & Plan (1) Encephalopathy: Plan: Patient presents with acute encephalopathy with a baseline history of memory impairment from her Parkinson's disease. Likely secondary to metabolic encephalopathy from acute COVID infection associate with fever and from acute diverticulitis. waxing and waning mental status, would not eat or drink, not taking pills consistently markedly improved with family visits, having food brought in from home was good on 10/15, ate [employer], family came in was lethargic and unresponsive on 10/16 and 10/17, did not eat or drink anything, did not take medications On 10/18-10/19 is awake, conversant, and eating very well - not sure if this is her typical trend and will be more sleepy in coming days and will monitor -- Some hallucinations today talking with family -- this may be from the Levaquin which we will switch to Augmentin as UCx not helpful to finish 2 more days Hold IVF at this time -continue to replace lytes as needed; continue thiamine -Appreciate dietary input -continue supportive care -Plan now for rehab at [facility] when bed available - if able to participate and mentation remains improved - Did have a fever on night of 10/16 - maybe atelectasis given mostly sleeping? vs from UTI -- No further fevers ; treatment for UTI as above Discussed with family, perhaps hospice would be most realistic since her mental status is so inconsistent especially if she does become more sleepy after today. Arash notes it seems as if after a good day she is having more sleepy days which is to be expected (2) Acute diverticulitis: Plan: Acute sigmoid diverticulitis-now resolved - completed course of Zosyn for 10-day course had some diarrhea--> now resolved-C. difficile never checked as diarrhea resolved started FLorastor (3) COVID-19 virus infection: Plan: With acute respiratory failure with hypoxia-now resolved after 1 to 2 days on 2 L nasal cannula. 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 Vaccinated: No Biggest issue is really poor appetite, not taking PO much at all as above POx was< 94% and was requiring 2LNC --> started Dexamethasone and remdesivir earlier in admission, but then discontinued after a few days due to hallucinations thought to be from steroids Remains on RA Has no cough, no respiratory symptoms Now, off Covid precautions on 10/10 (4) A-fib: Plan: Patient remains in rate-controlled atrial fibrillation she is on metoprolol 25 she does not appear to be chronically anticoagulated due to Watchman device. - Last echocardiogram performed in 2020 shows preserved ejection fraction with moderate mitral regurgitation. issues with her not taking metoprolol consistently (5) Hypertension: Plan: BPs elevated at times when refuses to take her meds - Continue metoprolol and amlodipine if she is willing to take them (6) Hypokalemia: Plan: Will monitor if able to take replacement (7) Hypophosphatemia: Plan: monitor (8) Hypomagnesemia: Plan: 1.7, given 1gm IV mag (9) Elevated troponin I level: Plan: Mild elevation and trended back downward, no acute ischemia on ECG and no chest pain. Myocardial demand ischemia. (10) GERD (gastroesophageal reflux disease): Plan: - Continue Protonix (11) Mood disorder: Plan: Unknown diagnosis. - Continue mirtazapine (lower dose due to daytime somnolence) - Also on gabapentin - unclear reason -> Lowered frequency as well to HS as she had a lot of daytime somnolence from 10/01 - 10/03. Stopped on 10/05. (12) Parkinson disease: Plan: Has resting tremor in arm and jaw. - Continue on Sinemet & mirtazapine when willing to take them -> Due to ongoing fatigue, lowered her home mirtazapine to 15 mg HS on 10/02. (13) Presence of cardiac pacemaker: Plan: Noted (14) Presence of Watchman left atrial appendage closure device: Plan: Noted (15) DVT prophylaxis: Plan: Lovenox was initially ordered, but she refused. - Continue XU hose Plan: Dispo- planning on SNF placement as she was improving but needs strengthening before can go home - with possible transition to hospice if she declines again?? Discussed with Nicole. Patient is much better in appearance but it is hard to say if this is going to be her normal trend. Good day then many days of sleep. We will see how she is tomorrow and make a decision from there. Nicole did state the patient would not want a feeding tube or artificial feeds. Still planning to pursue rehab if she can stay like how she is today but if not hospice would be the route to pursue. Admission and Anticipated Discharge Date Admission Date: September 27, 2021 Subjective No acute events overnight. Continues to be alert and interactive today. Family notes patient having some hallucinations. Possibly UTI vs Levaquin vs hospital delirium. Will change Levaquin to Augmentin as culture not helpful and allergies. Patient had a good breakfast today but not much for lunch but still appetite better over past couple days compared to previous. She verbalizes no complaints. Review of Systems Review of Systems: All systems reviewed & are unremarkable except as noted in Subjective Physical Exam Physical Exam: PHYSICAL EXAM General Appearance: Thin/Frail elderly woman in NAD HEENT: Head is normocephalic/atraumatic Neck: Supple; Trachea midline; Neg JVD Heart: RRR with no M/G/R Lungs: CTA in all lung donohue bilaterally; Respirations unlabored; Neg accessory muscle use Abdomen: Soft, non-tender, non-distended; Positive BS x 4 quadrants Extremities: Neg cyanosis or edema Neurological: Awake and following commands; eating Psychiatric: Appropriate mood/affect Skin: Normal Color; Warm/Dry Results & Data Results & Data ([facility]) Vital Signs (Past 12 Hours) Vital Signs Temp Pulse Resp BP Pulse Ox Pulse Ox 10/19/21 14:52 36.5 C 69 17 136/67 97 10/19/21 11:00 97 10/19/21 09:56 65 133/73 10/19/21 08:43 71 179/68 H 10/19/21 07:19 36.6 C 61 16 139/66 97 PG Care Time/CCT Total # of Minutes Spent Total Time Spent with Patient: Total time spent is greater than 50% in coordination of care (as documented) at patient's floor/unit and/or counseling patient: Coding Level of Care Code 49667 Subseq Hosp Care Lvl 2 Diagnoses Encephalopathy G93.40 Acute diverticulitis K57.92 COVID-19 virus infection U07.1 A-fib I48.91 Atrial fibrillation type: unspecified Hypertension I10 Hypokalemia E87.6 Hypophosphatemia E83.39 Hypomagnesemia E83.42 Elevated troponin I level R77.8 GERD (gastroesophageal reflux disease) K21.9 Mood disorder F39 Parkinson disease G20 Presence of cardiac pacemaker Z95.0 Presence of Watchman left atrial appendage closure device Z95.818 DVT prophylaxis Z29.9 (1) A-fib Atrial fibrillation type: unspecified Qualified Code(s): I48.91 - Unspecified atrial fibrillation
[2021-10-19] MEDS: MIRTAZAPINE TAB 15 MG TAB PO SCH ×2 (20:03→20:11)
[2021-10-20] MEDS: CARBIDOPA/LEVODOPA 25/100MG EXT REL TAB PO SCH ×3 (09:49→16:19)
[2021-10-20] MEDS: ATORVASTATIN 10 MG TAB PO SCH (09:50)
[2021-10-20] MEDS: ASPIRIN 81 MG ECTAB PO SCH (09:50)
[2021-10-20] MEDS: METOPROLOL SUCC 25MG EXT REL TAB PO SCH (09:50)
[2021-10-20] MEDS: SACCHAROMYCES BOULARDII 250 MG CAP PO SCH (09:50)
[2021-10-20] MEDS: amLODIPine BESYLATE 5 MG TAB PO SCH (09:50)
[2021-10-20] MEDS: THIAMINE HCL 100 MG TAB PO SCH (09:50)
[2021-10-20] MEDS: PANTOprazole 40 MG TAB PO SCH (09:50)
[2021-10-20] MEDS: AMOXICILLIN/CLAVULANATE 500 MG TAB PO SCH ×2 (09:50→16:19)
[2021-10-20] MEDS: POTASSIUM CHLORIDE 10 MEQ TABCR PO SCH ×2 (09:50→20:33)
[2021-10-20] MEDS ORDERED: levoFLOXacin 250 MG TABLET PO SCH (11:00)
--- NOTE | 2021-10-20 19:22 | Hospitalist Progress Note ---
Date of Service October 20, 2021 Assessment & Plan (1) Encephalopathy: Plan: Patient presents with acute encephalopathy with a baseline history of memory impairment from her Parkinson's disease. Likely secondary to metabolic encephalopathy from acute COVID infection associate with fever and from acute diverticulitis. waxing and waning mental status, would not eat or drink, not taking pills consistently markedly improved with family visits, having food brought in from home was good on 10/15, ate [employer], family came in was lethargic and unresponsive on 10/16 and 10/17, did not eat or drink anything, did not take medications On 10/18-10/19 is awake, conversant, and eating very well - now back to sleeping today but able to wake up but quickly closes eyes again -- Some hallucinations on 10/19 when talking with family -- this may be from the Levaquin which we will switch to Augmentin as UCx not helpful to finish 2 more days - however not really taking meds Hold IVF at this time - sana wanted to see if she is able to take orals on her own. Does okay when awake -continue to replace lytes as needed; continue thiamine -Appreciate dietary input -continue supportive care -Plan now for rehab at [facility] when bed available - if able to participate and mentation remains improved - Did have a fever on night of 10/16 - maybe atelectasis given mostly sleeping? vs from UTI -- No further fevers ; treatment for UTI as above Discussed with family, perhaps hospice would be most realistic since her mental status is so inconsistent especially if she does become more sleepy after today. Sana notes it seems as if after a good day she is having more sleepy days which is to be expected (2) Acute diverticulitis: Plan: Acute sigmoid diverticulitis-now resolved - completed course of Zosyn for 10-day course had some diarrhea--> now resolved-C. difficile never checked as diarrhea resolved started FLorastor (3) COVID-19 virus infection: Plan: With acute respiratory failure with hypoxia-now resolved after 1 to 2 days on 2 L nasal cannula. 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 Vaccinated: No Biggest issue is really poor appetite, not taking PO much at all as above POx was< 94% and was requiring 2LNC --> started Dexamethasone and remdesivir earlier in admission, but then discontinued after a few days due to hallucinations thought to be from steroids Remains on RA Has no cough, no respiratory symptoms Now, off Covid precautions on 10/10 (4) A-fib: Plan: Patient remains in rate-controlled atrial fibrillation she is on metoprolol 25 she does not appear to be chronically anticoagulated due to Watchman device. - Last echocardiogram performed in 2020 shows preserved ejection fraction with moderate mitral regurgitation. issues with her not taking metoprolol consistently (5) Hypertension: Plan: BPs elevated at times when refuses to take her meds - Continue metoprolol and amlodipine if she is willing to take them (6) Hypokalemia: Plan: Will monitor if able to take replacement (7) Hypophosphatemia: Plan: monitor (8) Hypomagnesemia: Plan: Monitor and replace as necessary but normally refuses labs (9) Elevated troponin I level: Plan: Mild elevation and trended back downward, no acute ischemia on ECG and no chest pain. Myocardial demand ischemia. (10) GERD (gastroesophageal reflux disease): Plan: - Continue Protonix (11) Mood disorder: Plan: Unknown diagnosis. - Continue mirtazapine (lower dose due to daytime somnolence) - Also on gabapentin - unclear reason -> Lowered frequency as well to HS as she had a lot of daytime somnolence from 10/01 - 10/03. Stopped on 10/05. (12) Parkinson disease: Plan: Has resting tremor in arm and jaw. - Continue on Sinemet & mirtazapine when willing to take them -> Due to ongoing fatigue, lowered her home mirtazapine to 15 mg HS on 10/02. (13) Presence of cardiac pacemaker: Plan: Noted (14) Presence of Watchman left atrial appendage closure device: Plan: Noted (15) DVT prophylaxis: Plan: Lovenox was initially ordered, but she refused. - Continue XU alvarado Plan: Dispo- planning on SNF placement with good/bad days - uncertain how much participation she will be able to give and may need to consider hospice Discussed with Nicole. Seems she is going to trend with good day/days then many days of sleep. We will see how she is tomorrow. Nicole did state the patient would not want a feeding tube or artificial feeds. Still planning to pursue rehab however hospice may be the better fit Admission and Anticipated Discharge Date Admission Date: September 27, 2021 Subjective Patient noted to have confusion yesterday and was awake overnight and ambulating the halls with staff. She is more sleepy today. She will open her eyes and would answer questions with head nods. HOwever when I asked her if she could talk to me she did state "I am doing okay today" but quickly closes her eyes. She has not been eating today and did not take her medications. Review of Systems Review of Systems: All systems reviewed & are unremarkable except as noted in Subjective Physical Exam Physical Exam: PHYSICAL EXAM General Appearance: Thin/Frail elderly woman in NAD HEENT: Head is normocephalic/atraumatic Neck: Supple; Trachea midline; Neg JVD Heart: RRR with no M/G/R Lungs: CTA in all lung donohue bilaterally; Respirations unlabored; Neg accessory muscle use Abdomen: Soft, non-tender, non-distended; Positive BS x 4 quadrants Extremities: Neg cyanosis or edema Neurological: Sleeping but does open her eyes and answers with head nods but will speak a bit with more engagement but quickly closes eyes again Psychiatric: Appropriate mood/affect Skin: Normal Color; Warm/Dry Results & Data Results & Data ([facility]) Vital Signs (Past 12 Hours) Vital Signs Temp Pulse Pulse Resp BP BP Pulse Ox 10/20/21 15:31 36.6 C 59 L 16 158/78 H 96 10/20/21 08:52 61 147/72 H 10/20/21 08:00 36.5 C 60 16 145/69 H 98 PG Care Time/CCT Total # of Minutes Spent Total Time Spent with Patient: Total time spent is greater than 50% in coordination of care (as documented) at patient's floor/unit and/or counseling patient: Coding Level of Care Code 44164 Subseq Hosp Care Lvl 2 Diagnoses Encephalopathy G93.40 Acute diverticulitis K57.92 COVID-19 virus infection U07.1 A-fib I48.91 Atrial fibrillation type: unspecified Hypertension I10 Hypokalemia E87.6 Hypophosphatemia E83.39 Hypomagnesemia E83.42 Elevated troponin I level R77.8 GERD (gastroesophageal reflux disease) K21.9 Mood disorder F39 Parkinson disease G20 Presence of cardiac pacemaker Z95.0 Presence of Watchman left atrial appendage closure device Z95.818 DVT prophylaxis Z29.9 (1) A-fib Atrial fibrillation type: unspecified Qualified Code(s): I48.91 - Unspecified atrial fibrillation
[2021-10-20] MEDS: MIRTAZAPINE TAB 15 MG TAB PO SCH (20:33)
[2021-10-21] MEDS: PANTOprazole 40 MG TAB PO SCH (08:31)
[2021-10-21] MEDS: ATORVASTATIN 10 MG TAB PO SCH (08:31)
[2021-10-21] MEDS: POTASSIUM CHLORIDE 10 MEQ TABCR PO SCH ×2 (08:31→20:07)
[2021-10-21] MEDS: METOPROLOL SUCC 25MG EXT REL TAB PO SCH (08:31)
[2021-10-21] MEDS: THIAMINE HCL 100 MG TAB PO SCH (08:31)
[2021-10-21] MEDS: amLODIPine BESYLATE 5 MG TAB PO SCH (08:31)
[2021-10-21] MEDS: AMOXICILLIN/CLAVULANATE 500 MG TAB PO SCH ×2 (08:31→16:37)
[2021-10-21] MEDS: CARBIDOPA/LEVODOPA 25/100MG EXT REL TAB PO SCH ×3 (08:31→16:15)
[2021-10-21] MEDS: SACCHAROMYCES BOULARDII 250 MG CAP PO SCH (08:31)
[2021-10-21] MEDS: ASPIRIN 81 MG ECTAB PO SCH (08:31)
--- NOTE | 2021-10-21 09:56 | Hospitalist Progress Note ---
Date of Service October 21, 2021 Assessment & Plan (1) Encephalopathy: Plan: Patient presents with acute encephalopathy with a baseline history of memory impairment from her Parkinson's disease. Likely secondary to metabolic encephalopathy from acute COVID infection associate with fever and from acute diverticulitis. waxing and waning mental status, would not eat or drink, not taking pills consistently markedly improved with family visits, having food brought in from home was good on 10/15, ate [employer], family came in; was lethargic and unresponsive on 10/16 and 10/17, did not eat or drink anything, did not take medications On 10/18-10/19 is awake, conversant, and eating very well - now back to sleeping most of the last 2 days but able to wake up but quickly closes eyes again -- Some hallucinations on 10/19 when talking with family -- this may be from the Levaquin which we will switch to Augmentin as UCx not helpful to finish 2 more days - however not really taking meds - Discussed with Nicole and suspect this will likely be the cycle - good/bad days - Hold IVF at this time - sana wanted to see if she is able to take orals on her own. Does okay when awake -continue to replace lytes as needed (largely refuses labs); continue thiamine -Appreciate dietary input -continue supportive care - Did have a fever on night of 10/16 - maybe atelectasis given mostly sleeping? vs from UTI -- No further fevers ; treatment for UTI as above Discussed with family, perhaps hospice would be most realistic since her mental status is so inconsistent especially if she does become more sleepy after today. Sana notes it seems as if after a good day she is having more sleepy days which is to be expected (2) Acute diverticulitis: Plan: Acute sigmoid diverticulitis-now resolved - completed course of Zosyn for 10-day course had some diarrhea--> now resolved-C. difficile never checked as diarrhea resolved started FLorastor (3) COVID-19 virus infection: Plan: With acute respiratory failure with hypoxia-now resolved after 1 to 2 days on 2 L nasal cannula. 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 Vaccinated: No Biggest issue is really poor appetite, not taking PO much at all as above POx was< 94% and was requiring 2LNC --> started Dexamethasone and remdesivir earlier in admission, but then discontinued after a few days due to hallucinations thought to be from steroids Remains on RA Has no cough, no respiratory symptoms Now, off Covid precautions on 10/10 (4) A-fib: Plan: Patient remains in rate-controlled atrial fibrillation she is on metoprolol 25 she does not appear to be chronically anticoagulated due to Watchman device. - Last echocardiogram performed in 2020 shows preserved ejection fraction with moderate mitral regurgitation. issues with her not taking metoprolol consistently (5) Hypertension: Plan: BPs elevated at times when refuses to take her meds - Continue metoprolol and amlodipine if she is willing to take them (6) Hypokalemia: Plan: Will monitor if able to take replacement (7) Hypophosphatemia: Plan: monitor - when agreeing to labs (8) Hypomagnesemia: Plan: Monitor and replace as necessary but normally refuses labs (9) Elevated troponin I level: Plan: Mild elevation and trended back downward, no acute ischemia on ECG and no chest pain. Myocardial demand ischemia. (10) GERD (gastroesophageal reflux disease): Plan: - Continue Protonix (11) Mood disorder: Plan: Unknown diagnosis. - Continue mirtazapine (lower dose due to daytime somnolence) - Also on gabapentin - unclear reason -> Lowered frequency as well to HS as she had a lot of daytime somnolence from 10/01 - 10/03. Stopped on 10/05. (12) Parkinson disease: Plan: Has resting tremor in arm and jaw. - Continue on Sinemet & mirtazapine when willing to take them -> Due to ongoing fatigue, lowered her home mirtazapine to 15 mg HS on 10/02. (13) Presence of cardiac pacemaker: Plan: Noted (14) Presence of Watchman left atrial appendage closure device: Plan: Noted (15) DVT prophylaxis: Plan: Lovenox was initially ordered, but she refused. - Continue XU alvarado Plan: Dispo- planning on SNF placement with good/bad days - uncertain how much participation she will be able to give and may need to consider hospice Discussed with Nicole. Seems she is going to trend with good day/days then many days of sleep. Nicole did state the patient would not want a feeding tube or artificial feeds. Still planning to pursue rehab however hospice may be the better fit. Nicole plans to visit on Sunday Admission and Anticipated Discharge Date Admission Date: September 27, 2021 Subjective No acute events overnight. Largely remains sleeping. However opens her eyes easier today than previously for me. Mostly just answering with head nods (yes/no). Mostly just opens the R eye which she tends to do. Will recheck on her throughout the day to see if any changes. Review of Systems Review of Systems: Unobtainable due to reduced consciousness Physical Exam Physical Exam: PHYSICAL EXAM General Appearance: Thin/Frail elderly woman in NAD HEENT: Head is normocephalic/atraumatic Neck: Supple; Trachea midline; Neg JVD Heart: RRR with no M/G/R Lungs: CTA in all lung donohue bilaterally; Respirations unlabored; Neg accessory muscle use Abdomen: Soft, non-tender, non-distended; Positive BS x 4 quadrants Extremities: Neg cyanosis or edema Neurological: Sleeping but does open her eyes (mostly R) and answers with head nods Psychiatric: Appropriate mood/affect Skin: Normal Color; Warm/Dry Results & Data Results & Data ([facility]) Vital Signs (Past 12 Hours) Vital Signs Temp Pulse Pulse Resp BP BP Pulse Ox 10/21/21 07:41 36.6 C 69 16 138/70 98 10/21/21 04:45 76 18 146/63 H 96 PG Care Time/CCT Total # of Minutes Spent Total Time Spent with Patient: Total time spent is greater than 50% in coordination of care (as documented) at patient's floor/unit and/or counseling patient: Coding Level of Care Code 32509 Subseq Hosp Care Lvl 2 Diagnoses Encephalopathy G93.40 Acute diverticulitis K57.92 COVID-19 virus infection U07.1 A-fib I48.91 Atrial fibrillation type: unspecified Hypertension I10 Hypokalemia E87.6 Hypophosphatemia E83.39 Hypomagnesemia E83.42 Elevated troponin I level R77.8 GERD (gastroesophageal reflux disease) K21.9 Mood disorder F39 Parkinson disease G20 Presence of cardiac pacemaker Z95.0 Presence of Watchman left atrial appendage closure device Z95.818 DVT prophylaxis Z29.9 (1) A-fib Atrial fibrillation type: unspecified Qualified Code(s): I48.91 - Unspecified atrial fibrillation
[2021-10-21] MEDS: MIRTAZAPINE TAB 15 MG TAB PO SCH (20:07)
[2021-10-22] MEDS: CARBIDOPA/LEVODOPA 25/100MG EXT REL TAB PO SCH ×3 (08:28→16:20)
[2021-10-22] MEDS: AMOXICILLIN/CLAVULANATE 500 MG TAB PO SCH (08:29)
[2021-10-22] MEDS: SACCHAROMYCES BOULARDII 250 MG CAP PO SCH (08:34)
[2021-10-22] MEDS: THIAMINE HCL 100 MG TAB PO SCH (08:34)
[2021-10-22] MEDS: POTASSIUM CHLORIDE 10 MEQ TABCR PO SCH ×2 (08:34→19:55)
[2021-10-22] MEDS: PANTOprazole 40 MG TAB PO SCH (08:35)
[2021-10-22] MEDS: amLODIPine BESYLATE 5 MG TAB PO SCH (08:35)
[2021-10-22] MEDS: ASPIRIN 81 MG ECTAB PO SCH (08:35)
[2021-10-22] MEDS: ATORVASTATIN 10 MG TAB PO SCH (08:35)
[2021-10-22] MEDS: METOPROLOL SUCC 25MG EXT REL TAB PO SCH (08:35)
--- NOTE | 2021-10-22 17:44 | Hospitalist Progress Note ---
Date of Service October 22, 2021 Assessment & Plan (1) Encephalopathy: Plan: Patient presents with acute encephalopathy with a baseline history of memory impairment from her Parkinson's disease. Likely secondary to metabolic encephalopathy from acute COVID infection associate with fever and from acute diverticulitis. waxing and waning mental status, would not eat or drink, not taking pills consistently markedly improved with family visits, having food brought in from home was good on 10/15, ate [employer], family came in; was lethargic and unresponsive on 10/16 and 10/17, did not eat or drink anything, did not take medications On 10/18-10/19 is awake, conversant, and eating very well - now back to sleeping most of the last 2 days but able to wake up but quickly closes eyes again -- Some hallucinations on 10/19 when talking with family -- this may be from the Levaquin which we will switch to Augmentin as UCx not helpful to finish 2 more days - however not really taking meds - Discussed with Nicole and suspect this will likely be the cycle - good/bad days - Hold IVF at this time - sana wanted to see if she is able to take orals on her own. Does okay when awake -continue to replace lytes as needed (largely refuses labs); continue thiamine -Appreciate dietary input -continue supportive care - Did have a fever on night of 10/16 - maybe atelectasis given mostly sleeping? vs from UTI -- No further fevers ; treatment for UTI as above Discussed with family, perhaps hospice would be most realistic since her mental status is so inconsistent especially if she does become more sleepy after today. Sana notes it seems as if after a good day she is having more sleepy days which is to be expected. Hospice remains a realistic plan given her mental status on 10/22/21. (2) Acute diverticulitis: Plan: Acute sigmoid diverticulitis-now resolved - completed course of Zosyn for 10-day course had some diarrhea--> now resolved-C. difficile never checked as diarrhea resolved started FLorastor (3) COVID-19 virus infection: Plan: With acute respiratory failure with hypoxia-now resolved after 1 to 2 days on 2 L nasal cannula. 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 Vaccinated: No Biggest issue is really poor appetite, not taking PO much at all as above POx was< 94% and was requiring 2LNC --> started Dexamethasone and remdesivir earlier in admission, but then discontinued after a few days due to hallucinations thought to be from steroids Remains on RA Has no cough, no respiratory symptoms Now, off Covid precautions on 10/10 (4) A-fib: Plan: Patient remains in rate-controlled atrial fibrillation she is on metoprolol 25 she does not appear to be chronically anticoagulated due to Watchman device. - Last echocardiogram performed in 2020 shows preserved ejection fraction with moderate mitral regurgitation. issues with her not taking metoprolol consistently (5) Hypertension: Plan: BPs elevated at times when refuses to take her meds - Continue metoprolol and amlodipine if she is willing to take them (6) Hypokalemia: Plan: Will monitor if able to take replacement (7) Hypophosphatemia: Plan: monitor - when agreeing to labs (8) Hypomagnesemia: Plan: Monitor and replace as necessary but normally refuses labs (9) Elevated troponin I level: Plan: Mild elevation and trended back downward, no acute ischemia on ECG and no chest pain. Myocardial demand ischemia. (10) GERD (gastroesophageal reflux disease): Plan: - Continue Protonix (11) Mood disorder: Plan: Unknown diagnosis. - Continue mirtazapine (lower dose due to daytime somnolence) - Also on gabapentin - unclear reason -> Lowered frequency as well to HS as she had a lot of daytime somnolence from 10/01 - 10/03. Stopped on 10/05. (12) Parkinson disease: Plan: Has resting tremor in arm and jaw. - Continue on Sinemet & mirtazapine when willing to take them -> Due to ongoing fatigue, lowered her home mirtazapine to 15 mg HS on 10/02. (13) Presence of cardiac pacemaker: Plan: Noted (14) Presence of Watchman left atrial appendage closure device: Plan: Noted (15) DVT prophylaxis: Plan: Lovenox was initially ordered, but she refused. - Continue XU hose Plan: Dispo- planning on SNF placement with good/bad days - uncertain how much participation she will be able to give and may need to consider hospice Discussed with Nicole. Seems she is going to trend with good day/days then many days of sleep. Nicole did state the patient would not want a feeding tube or artificial feeds. Still planning to pursue rehab however hospice may be the better fit. Nicole plans to visit on Sunday Admission and Anticipated Discharge Date Admission Date: September 27, 2021 Subjective Patient reports no new symptoms. Review of Systems Review of Systems: All systems reviewed & are unremarkable except as noted in HPI & below Physical Exam Physical Exam: General Appearance: Thin/Frail elderly woman in NAD HEENT: Head is normocephalic/atraumatic Neck: Supple; Trachea midline; Neg JVD Heart: RRR with no M/G/R Lungs: CTA in all lung donohue bilaterally; Respirations unlabored; Neg accessory muscle use Abdomen: Soft, non-tender, non-distended; Positive BS x 4 quadrants Extremities: Neg cyanosis or edema Neurological: Sleeping but does open her eyes (mostly R) and answers with head nods Psychiatric: Appropriate mood/affect Skin: Normal Color; Warm/Dry Results & Data Results & Data ([facility]) Vital Signs (Past 12 Hours) Vital Signs Temp Pulse Pulse Resp BP Pulse Ox 10/22/21 16:25 36.6 C 73 16 125/79 97 10/22/21 08:01 36.4 C L 78 16 141/80 H 97 PG Care Time/CCT Total # of Minutes Spent Total Time Spent with Patient: Total time spent is greater than 50% in coordination of care (as documented) at patient's floor/unit and/or counseling patient: Coding Level of Care Code 43708 Subseq Hosp Care Lvl 2 Diagnoses Encephalopathy G93.40 Acute diverticulitis K57.92 COVID-19 virus infection U07.1 A-fib I48.91 Atrial fibrillation type: unspecified Hypertension I10 Hypokalemia E87.6 Hypophosphatemia E83.39 Hypomagnesemia E83.42 Elevated troponin I level R77.8 GERD (gastroesophageal reflux disease) K21.9 Mood disorder F39 Parkinson disease G20 Presence of cardiac pacemaker Z95.0 Presence of Watchman left atrial appendage closure device Z95.818 DVT prophylaxis Z29.9 (1) A-fib Atrial fibrillation type: unspecified Qualified Code(s): I48.91 - Unspecified atrial fibrillation
[2021-10-22] MEDS: MIRTAZAPINE TAB 15 MG TAB PO SCH (19:55)
[2021-10-23 05:56] LABS: Hematocrit (blood only) 46.5 % (37-47); Mean Corpuscular Hemoglobin 28.4 pg (25-34); Mean Corpuscular Hgb Conc 32.3 g/dL (32-36); Mean Corpuscular Volume 88.1 fL (80-100); Mean Platelet Volume 10.6 fL (7.4-10.4); Platelet Count 254 K/uL (130-400); RDW Coefficient of Variation 15.4 % (11.5-14.5); RDW Standard Deviation 49.8 fL (36.4-46.3); Red Blood Count 5.28 M/uL (4.2-5.4); White Blood Count 6.04 K/uL (4.8-10.8)
[2021-10-23 06:18] LABS: BUN Creatinine Ratio 21.2 (10-20); Calcium 9.1 mg/dl (8.5-10.1); Creatinine Clr Calc Pharmacy 35.4 ml/min; Est GFR (African American) 70.9 ml/min; Est GFR (Non-African American) 61.2 ml/min; Potassium 3.8 mmol/L (3.5-5.1)
[2021-10-23] MEDS: THIAMINE HCL 100 MG TAB PO SCH (10:23)
[2021-10-23] MEDS: POTASSIUM CHLORIDE 10 MEQ TABCR PO SCH ×2 (10:23→20:35)
[2021-10-23] MEDS: SACCHAROMYCES BOULARDII 250 MG CAP PO SCH (10:24)
[2021-10-23] MEDS: METOPROLOL SUCC 25MG EXT REL TAB PO SCH (10:24)
[2021-10-23] MEDS: CARBIDOPA/LEVODOPA 25/100MG EXT REL TAB PO SCH ×3 (10:24→18:42)
[2021-10-23] MEDS: PANTOprazole 40 MG TAB PO SCH (10:25)
[2021-10-23] MEDS: ATORVASTATIN 10 MG TAB PO SCH (10:25)
[2021-10-23] MEDS: amLODIPine BESYLATE 5 MG TAB PO SCH (10:26)
[2021-10-23] MEDS: ASPIRIN 81 MG ECTAB PO SCH (10:26)
--- NOTE | 2021-10-23 11:40 | Hospitalist Progress Note ---
Date of Service October 23, 2021 Assessment & Plan (1) Encephalopathy: Plan: Patient presents with acute encephalopathy with a baseline history of memory impairment from her Parkinson's disease. Likely secondary to metabolic encephalopathy from acute COVID infection associate with fever and from acute diverticulitis. waxing and waning mental status, would not eat or drink, not taking pills consistently markedly improved with family visits, having food brought in from home was good on 10/15, ate [employer], family came in; was lethargic and unresponsive on 10/16 and 10/17, did not eat or drink anything, did not take medications On 10/18-10/19 is awake, conversant, and eating very well - now back to sleeping most of the last 2 days but able to wake up but quickly closes eyes again -- Some hallucinations on 10/19 when talking with family -- this may be from the Levaquin which we will switch to Augmentin as UCx not helpful to finish 2 more days - however not really taking meds - Discussed with Nicole and suspect this will likely be the cycle - good/bad days - Hold IVF at this time - sana wanted to see if she is able to take orals on her own. Does okay when awake -continue to replace lytes as needed (largely refuses labs); continue thiamine -Appreciate dietary input -continue supportive care - Did have a fever on night of 10/16 - maybe atelectasis given mostly sleeping? vs from UTI -- No further fevers ; treatment for UTI as above Discussed with family, perhaps hospice would be most realistic since her mental status is so inconsistent especially if she does become more sleepy after today. Sana notes it seems as if after a good day she is having more sleepy days which is to be expected. Hospice remains a realistic plan given her mental status on 10/23/21. (2) Acute diverticulitis: Plan: Acute sigmoid diverticulitis-now resolved - completed course of Zosyn for 10-day course had some diarrhea--> now resolved-C. difficile never checked as diarrhea resolved started FLorastor (3) COVID-19 virus infection: Plan: With acute respiratory failure with hypoxia-now resolved after 1 to 2 days on 2 L nasal cannula. 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 Vaccinated: No Biggest issue is really poor appetite, not taking PO much at all as above POx was< 94% and was requiring 2LNC --> started Dexamethasone and remdesivir earlier in admission, but then discontinued after a few days due to hallucinations thought to be from steroids Remains on RA Has no cough, no respiratory symptoms Now, off Covid precautions on 10/10 (4) A-fib: Plan: Patient remains in rate-controlled atrial fibrillation she is on metoprolol 25 she does not appear to be chronically anticoagulated due to Watchman device. - Last echocardiogram performed in 2020 shows preserved ejection fraction with moderate mitral regurgitation. issues with her not taking metoprolol consistently (5) Hypertension: Plan: BPs elevated at times when refuses to take her meds - Continue metoprolol and amlodipine if she is willing to take them (6) Hypokalemia: Plan: Will monitor if able to take replacement (7) Hypophosphatemia: Plan: monitor - when agreeing to labs (8) Hypomagnesemia: Plan: Monitor and replace as necessary but normally refuses labs (9) Elevated troponin I level: Plan: Mild elevation and trended back downward, no acute ischemia on ECG and no chest pain. Myocardial demand ischemia. (10) GERD (gastroesophageal reflux disease): Plan: - Continue Protonix (11) Mood disorder: Plan: Unknown diagnosis. - Continue mirtazapine (lower dose due to daytime somnolence) - Also on gabapentin - unclear reason -> Lowered frequency as well to HS as she had a lot of daytime somnolence from 10/01 - 10/03. Stopped on 10/05. (12) Parkinson disease: Plan: Has resting tremor in arm and jaw. - Continue on Sinemet & mirtazapine when willing to take them -> Due to ongoing fatigue, lowered her home mirtazapine to 15 mg HS on 10/02. (13) Presence of cardiac pacemaker: Plan: Noted (14) Presence of Watchman left atrial appendage closure device: Plan: Noted (15) DVT prophylaxis: Plan: Lovenox was initially ordered, but she refused. - Continue XU hose Plan: Dispo- planning on SNF placement with good/bad days - uncertain how much participation she will be able to give and may need to consider hospice Discussed with Nicole. Seems she is going to trend with good day/days then many days of sleep. Nicole did state the patient would not want a feeding tube or artificial feeds. Still planning to pursue rehab however hospice may be the better fit. Nicole plans to visit on Sunday Admission and Anticipated Discharge Date Admission Date: September 27, 2021 Subjective Patient is awake, but has no new complaints. Review of Systems Review of Systems: All systems reviewed & are unremarkable except as noted in HPI & below Physical Exam Physical Exam: General Appearance: Thin/Frail elderly woman in NAD HEENT: Head is normocephalic/atraumatic Neck: Supple; Trachea midline; Neg JVD Heart: RRR with no M/G/R Lungs: CTA in all lung donohue bilaterally; Respirations unlabored; Neg accessory muscle use Abdomen: Soft, non-tender, non-distended; Positive BS x 4 quadrants Extremities: Neg cyanosis or edema Neurological: Sleeping but does open her eyes (mostly R) and answers with head nods Psychiatric: Appropriate mood/affect Skin: Normal Color; Warm/Dry Results & Data Results & Data ([facility]) Vital Signs (Past 12 Hours) Vital Signs Temp Pulse Resp BP Pulse Ox 10/23/21 08:00 36.4 C L 66 16 142/73 H 97 PG Care Time/CCT Total # of Minutes Spent Total Time Spent with Patient: Total time spent is greater than 50% in coordination of care (as documented) at patient's floor/unit and/or counseling patient: Coding Level of Care Code 05048 Subseq Hosp Care Lvl 2 Diagnoses Encephalopathy G93.40 Acute diverticulitis K57.92 COVID-19 virus infection U07.1 A-fib I48.91 Atrial fibrillation type: unspecified Hypertension I10 Hypokalemia E87.6 Hypophosphatemia E83.39 Hypomagnesemia E83.42 Elevated troponin I level R77.8 GERD (gastroesophageal reflux disease) K21.9 Mood disorder F39 Parkinson disease G20 Presence of cardiac pacemaker Z95.0 Presence of Watchman left atrial appendage closure device Z95.818 DVT prophylaxis Z29.9 (1) A-fib Atrial fibrillation type: unspecified Qualified Code(s): I48.91 - Unspecified atrial fibrillation
[2021-10-23] MEDS: MIRTAZAPINE TAB 15 MG TAB PO SCH (20:34)
[2021-10-24] MEDS: THIAMINE HCL 100 MG TAB PO SCH (08:16)
[2021-10-24] MEDS: SACCHAROMYCES BOULARDII 250 MG CAP PO SCH (08:16)
[2021-10-24] MEDS: CARBIDOPA/LEVODOPA 25/100MG EXT REL TAB PO SCH ×3 (08:16→15:09)
[2021-10-24] MEDS: PANTOprazole 40 MG TAB PO SCH (08:16)
[2021-10-24] MEDS: METOPROLOL SUCC 25MG EXT REL TAB PO SCH (08:16)
[2021-10-24] MEDS: POTASSIUM CHLORIDE 10 MEQ TABCR PO SCH ×2 (08:16→20:51)
[2021-10-24] MEDS: ASPIRIN 81 MG ECTAB PO SCH (08:16)
[2021-10-24] MEDS: amLODIPine BESYLATE 5 MG TAB PO SCH (08:16)
[2021-10-24] MEDS: ATORVASTATIN 10 MG TAB PO SCH (08:16)
--- NOTE | 2021-10-24 15:18 | Hospitalist Progress Note ---
Date of Service October 24, 2021 Assessment & Plan (1) Encephalopathy: Plan: Patient presents with acute encephalopathy with a baseline history of memory impairment from her Parkinson's disease. Likely secondary to metabolic encephalopathy from acute COVID infection associate with fever and from acute diverticulitis. waxing and waning mental status, would not eat or drink, not taking pills consistently markedly improved with family visits, having food brought in from home was good on 10/15, ate [employer], family came in; was lethargic and unresponsive on 10/16 and 10/17, did not eat or drink anything, did not take medications On 10/18-10/19 is awake, conversant, and eating very well - now back to sleeping most of the last 2 days but able to wake up but quickly closes eyes again -- Some hallucinations on 10/19 when talking with family -- this may be from the Levaquin which we will switch to Augmentin as UCx not helpful to finish 2 more days - however not really taking meds - Discussed with Nicole and suspect this will likely be the cycle - good/bad days - Hold IVF at this time - sana wanted to see if she is able to take orals on her own. Does okay when awake -continue to replace lytes as needed (largely refuses labs); continue thiamine -Appreciate dietary input -continue supportive care - Did have a fever on night of 10/16 - maybe atelectasis given mostly sleeping? vs from UTI -- No further fevers ; treatment for UTI as above Discussed with family, perhaps hospice would be most realistic since her mental status is so inconsistent especially if she does become more sleepy after today. Sana notes it seems as if after a good day she is having more sleepy days which is to be expected. Hospice remains a realistic plan given her mental status on 10/24/21. (2) Acute diverticulitis: Plan: Acute sigmoid diverticulitis-now resolved - completed course of Zosyn for 10-day course had some diarrhea--> now resolved-C. difficile never checked as diarrhea resolved started FLorastor (3) COVID-19 virus infection: Plan: With acute respiratory failure with hypoxia-now resolved after 1 to 2 days on 2 L nasal cannula. 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 Vaccinated: No Biggest issue is really poor appetite, not taking PO much at all as above POx was< 94% and was requiring 2LNC --> started Dexamethasone and remdesivir earlier in admission, but then discontinued after a few days due to hallucinations thought to be from steroids Remains on RA Has no cough, no respiratory symptoms Now, off Covid precautions on 10/10 (4) A-fib: Plan: Patient remains in rate-controlled atrial fibrillation she is on metoprolol 25 she does not appear to be chronically anticoagulated due to Watchman device. - Last echocardiogram performed in 2020 shows preserved ejection fraction with moderate mitral regurgitation. issues with her not taking metoprolol consistently (5) Hypertension: Plan: BPs elevated at times when refuses to take her meds - Continue metoprolol and amlodipine if she is willing to take them (6) Hypokalemia: Plan: Will monitor if able to take replacement (7) Hypophosphatemia: Plan: monitor - when agreeing to labs (8) Hypomagnesemia: Plan: Monitor and replace as necessary but normally refuses labs (9) Elevated troponin I level: Plan: Mild elevation and trended back downward, no acute ischemia on ECG and no chest pain. Myocardial demand ischemia. (10) GERD (gastroesophageal reflux disease): Plan: - Continue Protonix (11) Mood disorder: Plan: Unknown diagnosis. - Continue mirtazapine (lower dose due to daytime somnolence) - Also on gabapentin - unclear reason -> Lowered frequency as well to HS as she had a lot of daytime somnolence from 10/01 - 10/03. Stopped on 10/05. (12) Parkinson disease: Plan: Has resting tremor in arm and jaw. - Continue on Sinemet & mirtazapine when willing to take them -> Due to ongoing fatigue, lowered her home mirtazapine to 15 mg HS on 10/02. (13) Presence of cardiac pacemaker: Plan: Noted (14) Presence of Watchman left atrial appendage closure device: Plan: Noted (15) DVT prophylaxis: Plan: Lovenox was initially ordered, but she refused. - Continue XU hose Plan: Dispo- planning on SNF placement with good/bad days - uncertain how much participation she will be able to give and may need to consider hospice Discussed with Nicole. Seems she is going to trend with good day/days then many days of sleep. Nicole did state the patient would not want a feeding tube or artificial feeds. Still planning to pursue rehab however hospice may be the better fit. Nicole plans to visit on Sunday Admission and Anticipated Discharge Date Admission Date: September 27, 2021 Subjective 86 yo female reports no new symptoms. Review of Systems Review of Systems: All systems reviewed & are unremarkable except as noted in HPI & below Physical Exam Physical Exam: General Appearance: Thin/Frail elderly woman in NAD HEENT: Head is normocephalic/atraumatic Neck: Supple; Trachea midline; Neg JVD Heart: RRR with no M/G/R Lungs: CTA in all lung donohue bilaterally; Respirations unlabored; Neg accessory muscle use Abdomen: Soft, non-tender, non-distended; Positive BS x 4 quadrants Extremities: Neg cyanosis or edema Neurological: Sleeping but does open her eyes (mostly R) and answers with head nods Psychiatric: Appropriate mood/affect Skin: Normal Color; Warm/Dry Results & Data Results & Data ([facility]) Vital Signs (Past 12 Hours) Vital Signs Temp Pulse Resp BP Pulse Ox 10/24/21 07:09 36.5 C 62 16 144/63 H 98 PG Care Time/CCT Total # of Minutes Spent Total Time Spent with Patient: Total time spent is greater than 50% in coordination of care (as documented) at patient's floor/unit and/or counseling patient: Coding Level of Care Code 45086 Subseq Hosp Care Lvl 1 Diagnoses Encephalopathy G93.40 Acute diverticulitis K57.92 COVID-19 virus infection U07.1 A-fib I48.91 Atrial fibrillation type: unspecified Hypertension I10 Hypokalemia E87.6 Hypophosphatemia E83.39 Hypomagnesemia E83.42 Elevated troponin I level R77.8 GERD (gastroesophageal reflux disease) K21.9 Mood disorder F39 Parkinson disease G20 Presence of cardiac pacemaker Z95.0 Presence of Watchman left atrial appendage closure device Z95.818 DVT prophylaxis Z29.9 (1) A-fib Atrial fibrillation type: unspecified Qualified Code(s): I48.91 - Unspecified atrial fibrillation
[2021-10-24] MEDS: MIRTAZAPINE TAB 15 MG TAB PO SCH (20:51)
[2021-10-25] MEDS: amLODIPine BESYLATE 5 MG TAB PO SCH (08:59)
[2021-10-25] MEDS: CARBIDOPA/LEVODOPA 25/100MG EXT REL TAB PO SCH ×2 (08:59→12:18)
[2021-10-25] MEDS: ATORVASTATIN 10 MG TAB PO SCH (09:00)
[2021-10-25] MEDS: ASPIRIN 81 MG ECTAB PO SCH (09:00)
[2021-10-25] MEDS: METOPROLOL SUCC 25MG EXT REL TAB PO SCH (09:01)
[2021-10-25] MEDS: THIAMINE HCL 100 MG TAB PO SCH (09:01)
[2021-10-25] MEDS: SACCHAROMYCES BOULARDII 250 MG CAP PO SCH (09:01)
[2021-10-25] MEDS: POTASSIUM CHLORIDE 10 MEQ TABCR PO SCH (09:01)
[2021-10-25] MEDS: PANTOprazole 40 MG TAB PO SCH (09:01)
--- NOTE | 2021-10-27 17:59 | Discharge Summary ---
Date of Service October 25, 2021 Admission HPI Per Admitting Provider Patient does present via EMS due to concern for decreased responsive communicative by her caregiver. Patient is a caregiver for progressive Parkinson's disease patient reportedly has been unable to be contacted by her family for 5 days she is cared for by in-home caregivers. Caregivers called off last evening subsequently the family was notified that the caregivers have COVID. Then when the caregivers arrived today to see the patient she was with decreased responsiveness and they called EMS. reports that the caregiver had stated that the patient had been unresponsive on the couch since this morning. No known last known well. No reported falls or trauma. Patient's BSG was normal with a slightly elevated temperature at 101.1. No medications given in route Family states that he usual data fairly patient can walk around independently can perform activities of daily living and feed herself he just needs caregivers because of some her mild forgetful state for safety and to perform some jail care in her home patient lives by herself in her own home with caregiver support In the ER the patient has a negative CT scan of her head. She has mild congestive changes seen on chest x-ray. She has COVID-positive state. Mild elevation of her troponin, significant abdominal pain on exam Principal Diagnosis Encephalopathy Discharge Exam General Appearance: Thin/Frail elderly woman in NAD HEENT: Head is normocephalic/atraumatic Neck: Supple; Trachea midline; Neg JVD Heart: RRR with no M/G/R Lungs: CTA in all lung donohue bilaterally; Respirations unlabored; Neg accessory muscle use Abdomen: Soft, non-tender, non-distended; Positive BS x 4 quadrants Extremities: Neg cyanosis or edema Neurological: Sleeping but does open her eyes (mostly R) and answers with head nods Psychiatric: Appropriate mood/affect Skin: Normal Color; Warm/Dry Discharge Data Allergies Allergy/AdvReac Type Severity Reaction Status Date / Time morphine Allergy Intermediate Hives Verified 10/18/21 18:36 adhesive tape Allergy Mild Rash Verified 10/18/21 18:36 Sulfa (Sulfonamide Allergy Unknown Unknown Verified 10/18/21 18:36 Antibiotics) cephalexin AdvReac Unknown Unknown Verified 10/18/21 18:36 Consultations 09/27/21 16:35 ED Decision to Admit Stat Ordered Studies 09/27/21 14:50 CT head/brain wo con Stat 09/27/21 17:21 CT abd pelvis oral con only Stat Hospital Course (1) Encephalopathy: Patient presents with acute encephalopathy with a baseline history of memory impairment from her Parkinson's disease. Likely secondary to metabolic encephalopathy from acute COVID infection associate with fever and from acute diverticulitis. waxing and waning mental status, would not eat or drink, not taking pills consistently markedly improved with family visits, having food brought in from home was good on 10/15, ate [employer], family came in; was lethargic and unresponsive on 10/16 and 10/17, did not eat or drink anything, did not take medications On 10/18-10/19 is awake, conversant, and eating very well - now back to sleeping most of the last 2 days but able to wake up but quickly closes eyes again -- Some hallucinations on 10/19 when talking with family -- this may be from the Levaquin which we will switch to Augmentin as UCx not helpful to finish 2 more days - however not really taking meds - Discussed with Nicole and suspect this will likely be the cycle - good/bad days - Hold IVF at this time - sana wanted to see if she is able to take orals on her own. Does okay when awake -continue to replace lytes as needed (largely refuses labs); continue thiamine -Appreciate dietary input -continue supportive care - Did have a fever on night of 10/16 - maybe atelectasis given mostly sleeping? vs from UTI -- No further fevers ; treatment for UTI as above Discussed with family, perhaps hospice would be most realistic since her mental status is so inconsistent especially if she does become more sleepy after today. Sana notes it seems as if after a good day she is having more sleepy days which is to be expected. Patient will be discharged to SNF and will likely transition to hospice. Hospice remains a realistic plan given her mental status on 10/25/21 (2) Acute diverticulitis: Acute sigmoid diverticulitis-now resolved - completed course of Zosyn for 10-day course had some diarrhea--> now resolved-C. difficile never checked as diarrhea resolved started FLorastor (3) COVID-19 virus infection: With acute respiratory failure with hypoxia-now resolved after 1 to 2 days on 2 L nasal cannula. Was feeling ill for 5 days [employer]. First tested positive in our system 09/27/2021. Vaccinated: No Biggest issue is really poor appetite, not taking PO much at all as above POx was< 94% and was requiring 2LNC --> started Dexamethasone and remdesivir earlier in admission, but then discontinued after a few days due to hallucinations thought to be from steroids Remains on RA Has no cough, no respiratory symptoms Now, off Covid precautions on 10/10 (4) A-fib: Patient remains in rate-controlled atrial fibrillation she is on metoprolol 25 she does not appear to be chronically anticoagulated due to Watchman device. - Last echocardiogram performed in 2020 shows preserved ejection fraction with moderate mitral regurgitation. issues with her not taking metoprolol consistently (5) Hypertension: BPs elevated at times when refuses to take her meds - Continue metoprolol and amlodipine if she is willing to take them (6) Hypokalemia: Will monitor if able to take replacement (7) Hypophosphatemia: monitor - when agreeing to labs (8) Hypomagnesemia: Monitor and replace as necessary but normally refuses labs (9) Elevated troponin I level: Mild elevation and trended back downward, no acute ischemia on ECG and no chest pain. Myocardial demand ischemia. (10) GERD (gastroesophageal reflux disease): - Continue Protonix (11) Mood disorder: Unknown diagnosis. - Continue mirtazapine (lower dose due to daytime somnolence) - Also on gabapentin - unclear reason -> Lowered frequency as well to HS as she had a lot of daytime somnolence from 10/01 - 10/03. Stopped on 10/05. (12) Parkinson disease: Has resting tremor in arm and jaw. - Continue on Sinemet & mirtazapine when willing to take them -> Due to ongoing fatigue, lowered her home mirtazapine to 15 mg HS on 10/02. (13) Presence of cardiac pacemaker: Noted (14) Presence of Watchman left atrial appendage closure device: Noted (15) DVT prophylaxis: Lovenox was initially ordered, but she refused. - Continue XU alvarado Dispo- planning on SNF placement with good/bad days - uncertain how much participation she will be able to give and may need to consider hospice Discussed with Nicole. Seems she is going to trend with good day/days then many days of sleep. Nicole did state the patient would not want a feeding tube or artificial feeds. Still planning to pursue rehab however hospice may be the better fit. Nicole plans to visit on Sunday Total Time Total Time Spent Total Time Spent (In Minutes): 32 Discharge Plan Discharge Items Patient Disposition: Transfer Assisted Fac Reason For Visit: ENCEPHALPATHY, COVID+ Discharge Diagnosis: covid+ Activity: Resume your previous activity Non-emergency contact: Primary Care Provider Call non-emergency contact if: you have any medication questions Follow-up/Referrals: Nohemy Abel PA-C [Primary Care Provider] - Diet: Regular Diet Texture: Easy to Chew Addtl Attending Provider Instructions: You have been hospitalized for an acute medical problem. During your stay at [facility], we have made an effort to correct the problem that brought you to the hospital while keeping you as comfortable as possible. Medications were used to bring your condition under control and your discharge instructions will include directions for any medications you should take after leaving the hospital. Please make sure you see your Primary Care Provider as part of your follow up plan. Pending Studies at Discharge: No Stand-Alone Forms: My [facility] [address] Skilled Items Patient informed of condition?: No DNR: Yes Discharge Level of Care: Skilled Communicable Disease: No Discharge Prognosis: Stable Lines: None Urinary Catheter: No Medications and DC Order Prescriptions: New thiamine HCl (vitamin B1) 100 mg Tablet 100 mg PO QAM Qty: 30 RF: 0 Continued atorvastatin 10 mg Tablet 10 mg PO QAM RF: 0 pantoprazole [Protonix] 20 mg Tablet,Delayed Release (Dr/Ec) 20 mg PO QAM RF: 0 carbidopa-levodopa [Sinemet] 25-100 mg Tablet 1 tab PO TID RF: 0 aspirin 81 mg Tablet,Delayed Release (Dr/Ec) 81 mg PO QAM RF: 0 amlodipine 2.5 mg tablet 2.5 mg PO DAILY Qty: 30 RF: 0 acetaminophen 325 mg Tablet 650 mg PO Q4H PRN (Reason: Pain) RF: 0 mirtazapine 30 mg Tablet 30 mg PO HS RF: 0 metoprolol succinate 25 mg tablet extended release 24 hr 25 mg PO DAILY RF: 0 psyllium husk [Metamucil] 0.52 gram Capsule 0.52 g PO TID RF: 0 guaifenesin [Mucinex] 600 mg Tablet Extended Release 12hr 600 mg PO BID RF: 0 Discontinued gabapentin 100 mg Capsule 100 mg PO TID RF: 0 loratadine 10 mg Tablet 10 mg PO DAILY RF: 0 Discharge Orders: Discharge Order (Routine); Ordered 10/25/21 Ordered By: Jordy Martínez Admission Data Admit Date/Time: 09/27/21 16:47 Attending Provider: Jordy Martínez Admit Provider: Forrest Matt Primary Care Provider: Nohemy Abel Other Providers: Monique Tran ; Raven Bang ; Forrest Matt Other Interventions: Discharge Summary Assessment (RN) Last Done: 10/25/21 12:23 Coding Level of Care Code D/C DAY MANAGEMENT >30 MINS Diagnoses Encephalopathy G93.40 Acute diverticulitis K57.92 COVID-19 virus infection U07.1 A-fib I48.91 Atrial fibrillation type: unspecified Hypertension I10 Hypokalemia E87.6 Hypophosphatemia E83.39 Hypomagnesemia E83.42 Elevated troponin I level R77.8 GERD (gastroesophageal reflux disease) K21.9 Mood disorder F39 Parkinson disease G20 Presence of cardiac pacemaker Z95.0 Presence of Watchman left atrial appendage closure device Z95.818 DVT prophylaxis Z29.9
== END 2021-10-25 15:39 | DRG 177 ==
LOC: ED 14:34 → 2W 16:47 → SUATTDRO 16:47 → 2W 17:26 → 3E 10-11 15:53